=== PATIENT | female | born 1960 | race Caucasian/White ===

== ENCOUNTER 2020-11-10 19:36 | Emergency (ER) | payer OTHER, SELFPAY ==
--- NOTE | ~2020-11-10 | CT_ITS ---
EXAMINATION: CT ABDOMEN AND PELVIS WITHOUT CONTRAST CLINICAL INFORMATION: Flank pain, urinary retention COMPARISON: 11/22/2017 TECHNIQUE: Multidetector volumetric imaging was performed from the superior aspect of the liver through the pubic symphysis. Sagittal and coronal reformatted images were obtained on the technologist's workstation. This CT examination was performed using dose optimization techniques as appropriate, variously including the following: *Automated exposure control *Adjustment of mA and/or kV according to patient size (this includes techniques or standardized protocols for targeted exams where dose is matched to indication/reason for exam; i.e. extremities or head) *Use of iterative reconstruction technique DLP: 639 mGy-cm FINDINGS: Partially limited assessment due to motion artifact. LUNG BASES: The visualized lung bases are unremarkable. LIVER, GALLBLADDER, AND BILIARY TREE: The liver is normal in size, shape, and attenuation. No focal hepatic lesion or biliary ductal dilatation is present. Patient is status post cholecystectomy. PANCREAS: Unremarkable. SPLEEN: Unremarkable. ADRENAL GLANDS: Unremarkable. KIDNEYS AND URETERS: The kidneys are normal in size, shape, and attenuation. No hydronephrosis, hydroureter, or calculi seen. BLADDER: Decompressed with a Yen catheter. GASTROINTESTINAL TRACT: The small and large bowel are unremarkable. The appendix is unremarkable. No free fluid or free air is seen. ABDOMINAL WALL: No significant hernia is appreciated. LYMPH NODES: Normal. VASCULAR: There is mild scattered atherosclerotic calcification. PELVIC VISCERA: Unremarkable. OSSEOUS STRUCTURES: Chronic appearing posterior left rib fractures noted. Degenerative changes are noted in the spine. Chronic compression deformity of T11 is noted. CT/CT abdomen pelvis wo con IMPRESSION: Suboptimal assessment in some regions due to motion artifact. No acute findings identified. No hydronephrosis.
[2020-11-10 20:12] VITALS: BP 171/95; PULSE 97; RESP 18; TEMP 36.7; O2SAT 99; BMI 24.8
--- NOTE | 2020-11-10 20:21 | PC.NURSE ---
PT ABLE TO VOID SMALL AMOUNT WITHOUT DIFFICULTY FOR URINE SAMPLE
[2020-11-10 20:27] LABS: Appearance Urine CLEAR; Color Urine YELLOW; Glucose Urine UA NEG (NEG); Leukocyte Esterase Urine NEG (NEG); Nitrite Urine NEG (NEG); Urine Blood NEG (NEG); Urine Ketones NEG (NEG); Urine Protein NEG (NEG-TRACE)
[2020-11-10 21:36] LABS: MANUAL DIFF FLAG NO
[2020-11-10 21:38] LABS: Basophils Percent Auto 0.4 % (0-2); Eosinophils Absolute Auto 0.1 X10*3/uL (0.0-0.4); Eosinophils Percent Auto 0.7 % (0-4); Hematocrit 37.7 % (37-47); Hemoglobin 12.8 g/dl (12.0-16.0); Imm Gran Abs Auto 0.02 X10*3/uL (0.00-0.03); Imm Gran Pct Auto 0.2 % (0.0-0.4); Lymphocytes Absolute Auto 1.9 X10*3/uL (1.2-4.9); Lymphocytes Percent Auto 23.4 % (20-40); Mean Corpuscular Hemoglobin 31.8 pg (27.0-33.0); Mean Corpuscular Volume 93.8 fL (80-98); Mean Platelet Volume 10.6 fL (9.4-12.3); Monocytes Absolute Auto 0.4 X10*3/uL (0.1-1.2); Monocytes Percent Auto 4.9 % (2-11); Neutrophils Absolute Auto 5.7 X10*3/uL (2.0-8.3); Neutrophils Percent Auto 70.4 % (45-73); Platelet Count 192 X10*3/uL (160-400); Red Blood Count 4.02 X10*6/uL (4.20-5.50); White Blood Count 8.1 X10*3/uL (4.8-10.8)
[2020-11-10 22:09] LABS: Alanine Aminotransferase 9 U/L (0-31); Albumin Level 4.1 g/dL (3.5-5.0); Alkaline Phosphatase 69 U/L (39-117); Anion Gap 13 (12-20); Aspartate Amino Transferase 13 U/L (5-31); Bilirubin Total 0.3 mg/dL (0.0-1.0); Blood Urea Nitrogen 6 mg/dL (9-16); Carbon Dioxide 24 mmol/L (22-29); Chloride 112 mmol/L (96-108); Creatinine Clr Calc Pharmacy 58.9; Estimated Glomerular Filt Rate > 60; Glucose Random 92 mg/dL (60-115); Potassium 3.5 mmol/L (3.3-5.1); Sodium 145 mmol/L (135-145); Total Protein 6.9 g/dL (6.5-8.0)
--- NOTE | 2020-11-10 23:17 | ED.MALEGU ---
HPI - Male Genitourinary General Chief complaint: Abdominal Pain Stated complaint: back pain/abdominal pain Time Seen by Provider: 11/10/20 23:04 Source: patient Mode of arrival: ambulatory Limitations: language barrier Related Data Allergies Allergy/AdvReac Type Severity Reaction Status Date / Time Penicillins [PCN] Allergy Mild ITCHY Verified 11/11/20 00:31 penicillin V Allergy Unknown hives Verified 11/11/20 00:31 Sulfa (Sulfonamide Allergy Unknown swelling/ Verified 11/11/20 00:31 Antibiotics) hives sulfamethoxazole Allergy Unknown SOB, Verified 11/11/20 00:31 [From BACTRIM] diffuse rash trimethoprim [From BACTRIM] Allergy Unknown SOB, Verified 11/11/20 00:31 diffuse rash penicillin Allergy Unknown rash, itchy Uncoded 10/05/17 00:00 bactrim AdvReac Unknown asthma Uncoded 10/05/17 00:00 PMFSH Past Medical History Medical History Asthma Social History Social History Advance Directives: No Advance Directives Information Provided: No Physical Exam Vital Signs: Vital Signs: Last Vital Signs Temp 98.0 F 11/11/20 00:37 Pulse 68 11/11/20 00:37 Resp 16 11/11/20 00:37 BP 170/93 H 11/11/20 00:37 Pulse Ox 98 11/11/20 00:37 Body Mass Index 24.8 MDM - Male Genitourinary Lab Data Result diagrams: 11/10/20 21:19 11/10/20 21:19 Labs: Lab Results 11/10/20 11/10/20 11/10/20 Range/Units 20:20 21:19 21:19 WBC 8.1 (4.8-10.8) X10*3/uL RBC 4.02 L (4.20-5.50) X10*6/uL Hgb 12.8 (12.0-16.0) g/dl Hct 37.7 (37-47) % MCV 93.8 (80-98) fL MCH 31.8 (27.0-33.0) pg MCHC 34.0 (31.0-35.0) g/dl RDW 14.0 (11.0-16.0) % Plt Count 192 (160-400) X10*3/uL MPV 10.6 (9.4-12.3) fL Immature Gran % (Auto) 0.2 (0.0-0.4) % Neut % (Auto) 70.4 (45-73) % Lymph % (Auto) 23.4 (20-40) % [place] % (Auto) 4.9 (2-11) % Eos % (Auto) 0.7 (0-4) % Baso % (Auto) 0.4 (0-2) % Lymph # (Auto) 1.9 (1.2-4.9) X10*3/uL [place] # (Auto) 0.4 (0.1-1.2) X10*3/uL Eos # (Auto) 0.1 (0.0-0.4) X10*3/uL Baso # (Auto) 0.0 (0.0-0.2) X10*3/uL Abs Immat Gran (auto) 0.02 (0.00-0.03) X10*3/uL Absolute Neuts (auto) 5.7 (2.0-8.3) X10*3/uL Absolute Nucleated RBC 0.000 (0.0-0.012) X10*3/uL Nucleated RBC % (auto) 0.0 (0.0-0.2) /100WBC Sodium 145 (135-145) mmol/L Potassium 3.5 (3.3-5.1) mmol/L Chloride 112 H (96-108) mmol/L Carbon Dioxide 24 (22-29) mmol/L Anion Gap 13 (12-20) BUN 6 L (9-16) mg/dL Creatinine 0.95 (0.5-1.4) mg/dL Estim Creat Clear Calc 58.9 Estimated GFR > 60 Random Glucose 92 (60-115) mg/dL Calcium 9.0 (8.4-10.2) mg/dL Total Bilirubin 0.3 (0.0-1.0) mg/dL AST 13 (5-31) U/L ALT 9 (0-31) U/L Alkaline Phosphatase 69 (39-117) U/L Total Protein 6.9 (6.5-8.0) g/dL Albumin 4.1 (3.5-5.0) g/dL Urine Color YELLOW Urine Appearance CLEAR Urine pH 6.0 (5.0-8.0) Ur Specific [place] 1.010 (1.005-1.025) Urine Protein NEG (NEG-TRACE) MG/DL Urine Glucose (UA) NEG (NEG) MG/DL Urine Ketones NEG (NEG) MG/DL Urine Blood NEG (NEG) Urine Nitrite NEG (NEG) Ur Leukocyte Esterase NEG (NEG) Discharge Plan Discharge Clinical Impression: Acute retention of urine
[2020-11-11] MEDS: Ketorolac Tromethamine 60 MG/2 ML VIAL IM (00:32)
[2020-11-11 00:37] VITALS: BP 170/93; PULSE 68; RESP 16; TEMP 36.7; O2SAT 98
--- NOTE | 2020-11-11 01:35 | ED_ITS ---
HPI - Abdominal Pain General Chief Complaint: Abdominal Pain Stated Complaint: back pain/abdominal pain Time Seen by Provider: 11/10/20 23:04 Source: patient Mode of arrival: ambulatory Limitations: language barrier History of Present Illness HPI narrative: 60-year-old female with past medical history asthma and kidney stones presents with 2 days of inability to urinate and left flank pain. She feels that her bladder is been distended for the last 2 days and stated that the last time that this happened she need Yen. She is not reporting fevers, chills, nausea, vomiting, diarrhea, constipation, chest pain or pressure, palpitations, shortness of breath, shortness of breath on exertion, and edema. MD elicited complaint: flank pain Pertinent past history: kidney stones Onset (ago): day(s) (2) Pain Consistency: constant Location: L flank Severity: moderate Quality: stabbing and aching Migration to: no migration Exacerbating factors: movement Relieving factors: nothing Associated symptoms: dysuria Treatments prior to arrival: NSAIDs Related Data Allergies Allergy/AdvReac Type Severity Reaction Status Date / Time Penicillins [PCN] Allergy Mild ITCHY Verified 11/11/20 00:31 penicillin V Allergy Unknown hives Verified 11/11/20 00:31 Sulfa (Sulfonamide Allergy Unknown swelling/ Verified 11/11/20 00:31 Antibiotics) hives sulfamethoxazole Allergy Unknown SOB, Verified 11/11/20 00:31 [From BACTRIM] diffuse rash trimethoprim [From BACTRIM] Allergy Unknown SOB, Verified 11/11/20 00:31 diffuse rash penicillin Allergy Unknown rash, itchy Uncoded 10/05/17 00:00 bactrim AdvReac Unknown asthma Uncoded 10/05/17 00:00 Review of Systems Review of Systems Constitutional: No Fever, No Chills ENT/Mouth: No sore throat Eyes: No Eye Pain, No Swelling, No Redness Cardiovascular: No Chest Pain, No SOB Respiratory: No Cough, No Sputum, No Wheezing Gastrointestinal: positive Nausea, positive Vomiting, No Diarrhea, positive abdominal pain Genitourinary: positive Dysuria, positive urinary frequency, positive Hematuria, positive Flank Pain, positive hesitancy Musculoskeletal: No joint pain, No Myalgias Skin: No Skin Lesions, No rash Neuro: No Weakness, No Numbness, No Headache Psych: No Anxiety/Panic, No Depression Heme/Lymph: No Bruising, No Lymphadenopathy Endocrine: No Polyuria, No Polydipsia Yes all other systems are reviewed and are negative Physical Exam Vital Signs: Vital Signs: Last Vital Signs Temp 98.0 F 11/11/20 00:37 Pulse 68 11/11/20 00:37 Resp 16 11/11/20 00:37 BP 170/93 H 11/11/20 00:37 Pulse Ox 98 11/11/20 00:37 Body Mass Index 24.8 Appearance: Alert. Oriented X3. No acute distress. Eyes: Pupils equal, round and reactive to light. ENT: Pharynx normal. Neck: Normal inspection. Neck supple. CVS: Normal heart rate and rhythm. Pulses normal. Respiratory: No respiratory distress. Breath sounds normal. Abdomen: Soft and left-sided tenderness to palpation, CVA tenderness noted. To the left side, Skin: Skin warm and dry. Normal skin color. Normal skin turgor. Extremities: No lower extremity edema. Neuro: No motor deficit. No sensory deficit. Course Course Course Narrative: 60-year-old female presents with 2 days of inability to urinate and left flank pain. She states that she was able to urinate just a little bit for urinalysis. Yne cath placed as there was greater than 500 mL residual on bladder scan by this [employer]JUST[employer]. Will order CT scan of abdomen and pelvis as she does have significant flank pain. Labs are unremarkable. Urinalysis is negative MDM - Abdominal Pain Differential Diagnosis Differential diagnosis: Likely abdominal pain, calculus of kidney and renal colic Medical Records Attestation: I reviewed the patient's medical records. Lab Data Attestation: I reviewed the patient's lab results. Result diagrams: 11/10/20 21:19 11/10/20 21:19 Labs: Lab Results 11/10/20 11/10/20 11/10/20 Range/Units 20:20 21:19 21:19 WBC 8.1 (4.8-10.8) X10*3/uL RBC 4.02 L (4.20-5.50) X10*6/uL Hgb 12.8 (12.0-16.0) g/dl Hct 37.7 (37-47) % MCV 93.8 (80-98) fL MCH 31.8 (27.0-33.0) pg MCHC 34.0 (31.0-35.0) g/dl RDW 14.0 (11.0-16.0) % Plt Count 192 (160-400) X10*3/uL MPV 10.6 (9.4-12.3) fL Immature Gran % (Auto) 0.2 (0.0-0.4) % Neut % (Auto) 70.4 (45-73) % Lymph % (Auto) 23.4 (20-40) % [place] % (Auto) 4.9 (2-11) % Eos % (Auto) 0.7 (0-4) % Baso % (Auto) 0.4 (0-2) % Lymph # (Auto) 1.9 (1.2-4.9) X10*3/uL [place] # (Auto) 0.4 (0.1-1.2) X10*3/uL Eos # (Auto) 0.1 (0.0-0.4) X10*3/uL Baso # (Auto) 0.0 (0.0-0.2) X10*3/uL Abs Immat Gran (auto) 0.02 (0.00-0.03) X10*3/uL Absolute Neuts (auto) 5.7 (2.0-8.3) X10*3/uL Absolute Nucleated RBC 0.000 (0.0-0.012) X10*3/uL Nucleated RBC % (auto) 0.0 (0.0-0.2) /100WBC Sodium 145 (135-145) mmol/L Potassium 3.5 (3.3-5.1) mmol/L Chloride 112 H (96-108) mmol/L Carbon Dioxide 24 (22-29) mmol/L Anion Gap 13 (12-20) BUN 6 L (9-16) mg/dL Creatinine 0.95 (0.5-1.4) mg/dL Estim Creat Clear Calc 58.9 Estimated GFR > 60 Random Glucose 92 (60-115) mg/dL Calcium 9.0 (8.4-10.2) mg/dL Total Bilirubin 0.3 (0.0-1.0) mg/dL AST 13 (5-31) U/L ALT 9 (0-31) U/L Alkaline Phosphatase 69 (39-117) U/L Total Protein 6.9 (6.5-8.0) g/dL Albumin 4.1 (3.5-5.0) g/dL Urine Color YELLOW Urine Appearance CLEAR Urine pH 6.0 (5.0-8.0) Ur Specific [place] 1.010 (1.005-1.025) Urine Protein NEG (NEG-TRACE) MG/DL Urine Glucose (UA) NEG (NEG) MG/DL Urine Ketones NEG (NEG) MG/DL Urine Blood NEG (NEG) Urine Nitrite NEG (NEG) Ur Leukocyte Esterase NEG (NEG) Imaging Data CT scan - abdomen: Attestation: I personally reviewed and interpreted this imaging study as follows: Radiologist's impression: FINDINGS: Partially limited assessment due to motion artifact. LUNG BASES: The visualized lung bases are unremarkable. LIVER, GALLBLADDER, AND BILIARY TREE: The liver is normal in size, shape, and attenuation. No focal hepatic lesion or biliary ductal dilatation is present. Patient is status post cholecystectomy. PANCREAS: Unremarkable. SPLEEN: Unremarkable. ADRENAL GLANDS: Unremarkable. KIDNEYS AND URETERS: The kidneys are normal in size, shape, and attenuation. No hydronephrosis, hydroureter, or calculi seen. BLADDER: Decompressed with a Yen catheter. GASTROINTESTINAL TRACT: The small and large bowel are unremarkable. The appendix is unremarkable. No free fluid or free air is seen. ABDOMINAL WALL: No significant hernia is appreciated. LYMPH NODES: Normal. VASCULAR: There is mild scattered atherosclerotic calcification. PELVIC VISCERA: Unremarkable. OSSEOUS STRUCTURES: Chronic appearing posterior left rib fractures noted. Degenerative changes are noted in the spine. Chronic compression deformity of T11 is noted. CT/CT abdomen pelvis wo con IMPRESSION: Suboptimal assessment in some regions due to motion artifact. No acute findings identified. No hydronephrosis. Discharge Plan Discharge Clinical Impression: Acute retention of urine, Acute left flank pain Patient Disposition: Home, Self-Care Instructions: Acute Urinary Retention in Women (ED), Flank Pain (ED) Additional Instructions: Fue evaluado por retenci?n urinaria y dolor en el costado. La tomograf?a computarizada del abdomen y la pelvis es negativa para hallazgos agudos. No encontramos c?lculos renales ni infecciones renales. Tu an?lisis de lisbeth es negativo. Chan an?lisis de orina es negativo. [place] un seguimiento con chan m?dico de atenci?n Ur?logo retenci?n urinaria. [place] por elegir radha departamento de emergencias para chan evaluaci?n. [place] un seguimiento con chan m?dico de atenci?n primaria seg?n sea necesario. Regrese al departamento de emergencias por cualquier s?ntoma nuevo, preocupante o que empeore. You were evaluated for urinary retention and flank pain. CT scan of the abdomen and pelvis is negative for acute findings. We did not find any kidney stones or any kidney infections. Your blood work is negative. Her urinalysis is negative. Please follow-up with Urology for urinary retention. Thank you for choosing this emergency department for evaluation. Please follow-up with primary care physician as needed. Return to the emergency department for any new, concerning, or worsening symptoms. Referrals: Nikhil Duvall MD [Physician] - 2 days (Urinary retention) [facility] Past Medical History Attestation statement: The following information was validated with the patient. Source: old records reviewed Medical History Asthma Social History Social History Advance Directives: No Advance Directives Information Provided: No
== END 2020-11-11 02:50 | disposition home or self-care (01) ==
PROVIDERS: Emergency Provider Internal Medicine; PCP Internal Medicine
DX: R10.9 Unspecified abdominal pain (principal); R33.9 Retention of urine, unspecified; Z87.442 Personal history of urinary calculi
CPT/HCPCS: 36415; 74176; 80053; 81003; 85025; 96372; 99284; J1885

== ENCOUNTER 2022-12-16 13:32 | Emergency (ER) | payer OTHER, SELFPAY ==
--- NOTE | ~2022-12-16 | XR_ITS ---
EXAMINATION: XR KNEE, RIGHT CLINICAL INFORMATION: Pain. COMPARISON: None available. TECHNIQUE: Four views of the right knee. FINDINGS: No acute abnormality. No fracture or dislocation. No focal bone lesion. No abnormal periosteal reaction. Moderate joint narrowing of the medial femoral tibial joint. No chondrocalcinosis. Small suprapatellar joint effusion. Enthesopathy at the quadriceps tendon insertion of the superior pole of the patella. XR/XR knee RT 4V IMPRESSION: 1. No acute abnormality. 2. Moderate degenerative joint narrowing of the medial femoral tibial joint.
[2022-12-16 13:37] VITALS: BP 186/89; PULSE 69; RESP 18; TEMP 36.4; O2SAT 99; BMI 26.6
--- NOTE | 2022-12-16 13:37 | ED_ITS ---
HPI - Extremity Problem General Chief complaint: Extremity Injury, Lower Stated complaint: R Leg Pain No Injury Time Seen by Provider: 12/16/22 15:35 Source: patient Mode of arrival: ambulatory Limitations: no limitations History of Present Illness HPI Narrative: Patient is a 62 year old assigned female at with a history of asthma presenting to the emergency department today with right knee pain. Patient stat es that over the last 3 weeks she has had worsening right knee pain. Patient denies any dizziness, lightheadedness, abdominal pain, nausea, vomiting, fever, chills, blurry vision, double vision, loss of vision, chest pain, difficulty breathing, shortness of breath, back pain, night sweats, pain with urination, increased urinary frequency, increased urinary urgency, blood in his urine or stool, syncope or a near syncopal episode, recent trauma or falls, bowel incontinence, bladder incontinence, bowel retention, bladder retention, or any other complaints at this time. MD Complaint: extremity pain Onset (ago): week(s) (3) Pain Consistency: constant Location: right Severity scale (1-10): 3 Quality: dull Radiation: none Relieving factors: nothing Exacerbating factors: nothing Related Data Previous Rx's Medication Instructions Recorded cyclobenzaprine 5 mg tablet 5 mg PO TID PRN muscle spasm 7 12/16/22 days #21 tabs prednisone 20 mg tablet 20 mg PO DAILY 7 days #7 tabs 12/16/22 Allergies Allergy/AdvReac Type Severity Reaction Status Date / Time Penicillins [PCN] Allergy Mild ITCHY Verified 12/16/22 13:37 penicillin V Allergy Unknown hives Verified 12/16/22 13:37 Sulfa (Sulfonamide Allergy Unknown swelling/ Verified 12/16/22 13:37 Antibiotics) hives sulfamethoxazole Allergy Unknown SOB, Verified 12/16/22 13:37 [From BACTRIM] diffuse rash trimethoprim [From BACTRIM] Allergy Unknown SOB, Verified 12/16/22 13:37 diffuse rash penicillin Allergy Unknown rash, itchy Uncoded 10/05/17 00:00 bactrim AdvReac Unknown asthma Uncoded 10/05/17 00:00 Review of Systems Constitutional: Constitutional: Reports no additional constitutional complaints, Denies chills, Denies fever(s) and Denies night sweats Eyes: Eyes: Reports no additional eye complaints, Denies blurry vision, Denies change in vision, Denies diplopia, Denies eye discharge, Denies loss of vision and Denies eye pain ENT: Denies dizziness Cardiovascular: Cardiovascular: Reports no additional cardiovascular complaints, Denies chest pain, Denies lightheadedness, Denies Loss of Consciousness and Denies dyspnea Respiratory: Respiratory: Reports no additional respiratory complaints and Denies dyspnea Gastrointestinal: Gastrointestinal: Reports no additional gastrointestinal complaints, Denies abdominal pain, Denies melena, Denies hematochezia, Denies change in bowel habits and Denies change in stool character Genitourinary: Genitourinary: Denies hematuria, Denies urinary frequency, Denies dysuria, Denies urinary incontinence, Denies urinary hesitancy and Denies urinary urgency Musculoskeletal: Musculoskeletal: Reports no additional musculoskeletal complaints, Denies numbness and Denies tingling Comments: right knee pain Neurologic: Denies dizziness, Denies loss of vision, Denies numbness and Denies tingling Psychiatric: Psychiatric: Reports no additional psychiatric complaints Endocrine: Endocrine: Reports no additional endocrine complaints Hematologic/Lymphatic: Hematologic/Lymphatic: Reports no additional hematologic/lymphatic complaints Allergic/Immunologic: Allergic/Immunologic: Reports no additional allergic/immunologic complaints PMFSH Past Medical History Attestation statement: The following information was validated with the patient. Source: old records reviewed and nursing notes reviewed Medical History Asthma Social History Social History Advance Directives: No Advance Directives Information Provided: Yes Physical Exam Vital Signs: Vital Signs: Last Vital Signs Temp 97.5 F 12/16/22 13:37 Pulse 69 12/16/22 13:37 Resp 18 12/16/22 13:37 BP 186/89 H 12/16/22 13:37 Pulse Ox 99 12/16/22 13:37 O2 Del Method Room Air 12/16/22 13:37 BMI result Body Mass Index 26.6 Const: General: cooperative, no acute distress, alert and awake Nutritional Appearance: well nourished Orientation/consciousness: patient oriented x3 Limitations: no limitations HEENT: Head: Yes normal to inspection and Yes atraumatic Ears: hearing grossly normal bilaterally and external ears normal General nose exam: Normal external nose present, no nasal discharge noted and no epistaxis Face and sinus: Yes normal facial exam, No abrasion and No laceration Mouth: Normal oral and palatal mucosa present, no drooling and no muffled voice Eyes: General: appearance normal, both eyes and all related structures Periorbital: periorbital findings normal Eyelids: Yes eyelids normal Conjunctivae: conjunctivae normal Pupils: Equal, round and reactive pupils present EOM: EOMs intact bilaterally Neck: Neck: Yes normal visual inspection, Yes full ROM and Yes no lymphadenopathy Chest: Chest palpation & inspection: normal inspection of the chest Resp: Effort & Inspection: normal respiratory effort and able to speak in complete sentences GI: Inspection: Yes normal to inspection Neuro: General: patient oriented x3 and moves all extremities Cranial nerves: Yes Equal, round and reactive pupils present Cognition (Neuro): normal cognition Motor exam (neuro): 5/5 motor strength present throughout Sensory Exam: Normal double simultaneous stimulation for sensation Coordination: [id number] test normal Extrem: General: Yes normal to inspection, Yes full ROM and Yes capillary refill normal Psych: Appearance: grossly normal Mental Status: mental status grossly normal Affect: normal affect Attitude: cooperative Thought process: Normal thought process present Thought content: Normal thought content present Insight: Good insight present (Psych) Course Course Course Narrative: RME - 62 yo female presenting with nontraumatic right knee pain for the last 3 weeks. Plan: x-ray, joint eval in [facility] Medications Administered Discontinued Medications Generic Name Dose Route Start Last Admin Trade Name Freq PRN Reason Stop Dose Admin Cyclobenzaprine HCl 5 mg 12/16/22 16:12 12/16/22 16:27 Cyclobenzaprine Hcl 5 Mg Tablet PO 12/16/22 16:13 5 mg ONCE ONE Administration Ketorolac Tromethamine 15 mg 12/16/22 16:12 12/16/22 16:28 Ketorolac Tromethamine 15 Mg/Ml Vial IM 12/16/22 16:13 15 mg ONCE ONE Administration Prednisone 20 mg 12/16/22 16:12 12/16/22 16:27 Prednisone 20 Mg Tablet PO 12/16/22 16:13 20 mg ONCE ONE Administration Medical Decision Making Medical Decision Making [facility] Narrative: Patient is a 62 year old assigned female at with a history of asthma presenting to the emergency department today with right knee pain. Patient's physical exam was unremarkable. Patient's right knee x-ray showed no acute process. I explained my physical exam findings as well as all test results to the patient. I answered all questions asked by the patient. Patient received IM Toradol, PO Prednisone, and PO flexeril which she stated helped her symptoms significantly. I stressed the importance of the patient taking her medication as prescribed. I stressed the importance of the patient following up with her primary care provider and an orthopedic provider. I stressed the importance of the patient returning to the emergency department immediately if her symptoms were to worsen or if she were to develop any dizziness, shortness of breath, difficulty breathing, chest pain, blurry vision, loss of vision, nausea, vomiting, abdominal pain, fever, chills, back pain, or any other complaints. Patient verbalized agreement and understanding with this treatment plan and discharge. Differential Diagnosis Differential Diagnoses: The differential diagnosis associated with the presentation includes Right knee pain Osteoarthritis Fracture Knee sprain Knee strain Independent Interpretation I performed an independent interpretation of an: Plain X-Ray Interpretation: My interpretation is in agreement with the radiologist's impression of this imaging study. EXAMINATION: XR KNEE, RIGHT? CLINICAL INFORMATION: Pain.? COMPARISON: None available.? TECHNIQUE: Four views of the right knee. FINDINGS: No acute abnormality. No fracture or dislocation. No focal bone lesion. No abnormal periosteal reaction. Moderate joint narrowing of the medial femoral tibial joint. No chondrocalcinosis. Small suprapatellar joint effusion. Enthesopathy at the quadriceps tendon insertion of the superior pole of the patella.? XR/XR knee RT 4V IMPRESSION: 1.? No acute abnormality. 2.? Moderate degenerative joint narrowing of the medial femoral tibial joint. ? Dictated By: Bull Nascimento MD Signed By: Electronically signed by Bull Nascimento MD 12/16/22 7271 Radiology Impression Discussion of test interpretation with radiology: I have reviewed the radiologist's reading. Prescription Management I considered prescription management with: Pain Medication (patient prescribed flexeril and prednisone) Chronic Conditions Patient?s care impacted by: Other (asthma) Discharge Plan Discharge Clinical Impression: Acute knee pain, Osteoarthritis Patient Disposition: Home, Self-Care Instructions: Osteoarthritis (DC), Knee Pain (ED) Additional Instructions: Follow up with your primary care provider and an orthopedic provider. Return to the emergency department immediately if your symptoms worsen or if you develop any dizziness, shortness of breath, difficulty breathing, chest pain, blurry vision, loss of vision, nausea, vomiting, abdominal pain, fever, chills, back pain, or any other complaints. Prescriptions: New prednisone 20 mg tablet 20 mg PO DAILY 7 Days Qty: 7 0RF cyclobenzaprine 5 mg tablet 5 mg PO TID PRN (Reason: muscle spasm) 7 Days Qty: 21 0RF Referrals: [facility] [Provider Group] (Call to establish and follow up with an orthopedic provider. ) Kari Huffman MD [Primary Care Provider] - Interventions: ED Discharge Assessment Last Done: 12/16/22 16:34 Discharge Date/Time: 12/16/22 16:34 Print Language: Citizen Of [place]
[2022-12-16] MEDS: Cyclobenzaprine HCl 5 MG TABLET PO (16:27)
[2022-12-16] MEDS: predniSONE 20 MG TABLET PO (16:27)
[2022-12-16] MEDS: Ketorolac Tromethamine 15 MG/ML VIAL IM (16:28)
== END 2022-12-16 16:34 | disposition home or self-care (01) ==
PROVIDERS: Emergency Provider Emergency Medicine; PCP Internal Medicine
DX: M17.11 Unilateral primary osteoarthritis, right knee (principal); M25.561 Pain in right knee
CPT/HCPCS: 73564; 96372; 99283; 99284; J1885

== ENCOUNTER 2023-03-03 15:03 | Outpatient (AMB) | payer OTHER, SELFPAY ==
--- NOTE | 2023-03-03 15:05 | MHC.OFFVIS ---
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 The patient describes her pain as sharp in nature. Her pain has gotten worse over the last year in spite of continued non operative treatments. She has had cortisone injections in the past which gave her minimal relief. She has not had a viscosupplementation injection. She has tried Tylenol and anti-inflammatory medicines which gave her minimal relief. She has also done physical therapy which aggravated her pain. She would like to hold off on surgery for as long as possible. Allergies Penicillins [PCN] Allergy (Mild, Verified 03/03/23 15:09) ITCHY penicillin V Allergy (Unknown, Verified 03/03/23 15:09) hives Sulfa (Sulfonamide Antibiotics) Allergy (Unknown, Verified 03/03/23 15:09) swelling/ hives sulfamethoxazole [From BACTRIM] Allergy (Unknown, Verified 03/03/23 15:09) SOB, diffuse rash trimethoprim [From BACTRIM] Allergy (Unknown, Verified 03/03/23 15:09) SOB, diffuse rash penicillin Allergy (Unknown, Uncoded 10/05/17 00:00) rash, itchy bactrim Adverse Reaction (Unknown, Uncoded 10/05/17 00:00) asthma Medication List - Last Reconciled 03/03/23 by Carl Lugo MD cyclobenzaprine 5 mg PO TID PRN 7 days naproxen 500 mg PO BID prednisone 20 mg PO DAILY 7 days [facility] Medical History Asthma Physical Exam Vital Signs: BMI result Body Mass Index 26.6 Const Other: Well-nourished well-developed very friendly female awake alert and oriented x3 in no acute distress Extrem Other: Bilateral lower extremity examination shows good capillary refill, no skin lesions noted, normal sensation light touch Right knee examination shows a minimal effusion, palpable crepitus with range of motion, range of motion from -3 degrees to 115 degrees, pain with range of motion, no instability Results Reviewed Results Reviewed: X-rays of the patient's right knee show joint space narrowing most significant in the patellofemoral joint, no acute bony abnormalities Assessment & Plan Assessment & Plan (1) Arthritis of right knee: Code(s): M17.11 - Unilateral primary osteoarthritis, right knee Plan Ms. Isidro presents with right knee pain due to degenerative joint disease. I had a lengthy discussion with the patient regarding the treatment options. She wishes to hold off on surgery for as long as possible. I did give her a prescription for tramadol to help with her pain. She has had cortisone injections in the past which gave her minimal relief. I will see whether not her insurance company will cover a viscosupplementation injection. I will see her back once the injection is available. Feel free to call me at any time should questions regarding her orthopedic management arise. Thank you very much for asking me to see this very friendly patient. I spent 22 minutes in reviewing the patient's records and imaging studies, seeing the patient and documenting in the medical record. Medications: New tramadol 50 mg PO Q12H PRN 30 tabs 0RF pain Coding Level of Care Code New Pt Level 2 (86962) Diagnoses Arthritis of right knee M17.11
[2023-03-03 15:11] VITALS: BMI 26.6
== END 2023-03-03 15:23 | disposition home or self-care (01) ==
PROVIDERS: PCP Internal Medicine; Visit Provider Orthopaedic Surgery
DX: M17.11 Unilateral primary osteoarthritis, right knee (principal)
CPT/HCPCS: 99202

== ENCOUNTER → 2023-03-03 15:03 | Outpatient (BNVA) | payer OTHER, SELFPAY | PROVIDERS: PCP Internal Medicine; Visit Provider Orthopaedic Surgery | DX: M17.11 Unilateral primary osteoarthritis, right knee (principal) | CPT/HCPCS: 99202 ==

== ENCOUNTER 2023-03-04 14:19 | Outpatient (REF) | payer OTHER, SELFPAY ==
[2023-03-06 20:58] LABS: TS Negative Control Passed; TS Panel A 8; TS Panel B 7; TS Positive Control Passed; TSpotTB Positive (Negative)
== END 2023-03-04 14:20 | disposition home or self-care (01) ==
LOC: HO.LAB 14:19
PROVIDERS: PCP Internal Medicine; Visit Provider Internal Medicine
DX: E78.00 Pure hypercholesterolemia, unspecified (principal); F32.5 Major depressive disorder, single episode, in full remission; I10 Essential (primary) hypertension; K21.9 Gastro-esophageal reflux disease without esophagitis; Z11.1 Encounter for screening for respiratory tuberculosis; Z72.0 Tobacco use
CPT/HCPCS: 36415; 86481

== ENCOUNTER 2023-06-13 19:15 | Emergency (ER) | payer OTHER, SELFPAY ==
--- NOTE | ~2023-06-13 | XR_ITS ---
EXAMINATION: XR CHEST, 2 VIEWS CLINICAL INFORMATION: Cough. Left lower lung elliott. COMPARISON: 06/04/2019 TECHNIQUE: PA and lateral views of the chest were obtained. FINDINGS: There is focal airspace opacification in the lateral aspect of the left midlung, likely within the lingula, favored to correspond to pneumonia. Lungs are otherwise clear. No pneumothorax or pleural effusion. Cardiac and mediastinal contours are normal. The pulmonary vasculature is unremarkable. Mild hyperkyphosis. Bones are osteopenic. Mild multilevel degenerative disc disease. Chronic superior endplate compression deformity within a lower thoracic vertebra, unchanged. XR/XR chest 2V IMPRESSION: Focal airspace opacification in the lateral aspect of the left midlung, likely within the lingula, favored to correspond to pneumonia. Follow-up radiograph advised in 6-10 weeks to verify resolution.
[2023-06-13 19:29] VITALS: BP 114/65; PULSE 83; RESP 16; TEMP 36.5; O2SAT 99; BMI 24.3
[2023-06-13 20:07] LABS: COVID-19 Test Negative (Negative); IDNOW Serial# 08D9AD1C
[2023-06-13 20:10] LABS: IDNOW Serial# 152EDE1D; Influenza A Negative (Negative); Influenza B2 Negative (Negative)
[2023-06-13 20:59] LABS: Appearance Urine Clear; Color Urine Dark Yellow; Glucose Urine UA Negative (Negative); Leukocyte Esterase Urine Negative (Negative); Nitrite Urine Negative (Negative); Specific Gravity - Urine 1.025 (1.005-1.025); UMIC TRIGGER UACC YES; Urine Blood Negative (Negative); Urine Ketones Trace mg/dL (Negative); Urine Protein 100 (2+) mg/dL (Neg-Trace)
[2023-06-13 21:11] LABS: Bacteria Urine 1+ (None Seen); WBC Urine 0-5 /HPF (0-5)
[2023-06-14 00:30] VITALS: BP 132/71; PULSE 81; RESP 16; O2SAT 97
--- NOTE | 2023-06-14 00:45 | ED_ITS ---
HPI - General Adult General Chief complaint: Upper Respiratory Symptoms Stated complaint: fatigue Time Seen by Provider: 06/13/23 23:55 Source: patient, RN notes reviewed, old records reviewed and medical interpreter Mode of arrival: ambulatory Limitations: language barrier History of Present Illness HPI narrative: 63-year-old female presents for evaluation of ?fatigue. ? She reports cough, sore throat, headache. She reports general body aches She reports multiple positive sick contacts in the last few weeks. Also reports increased urination and dysuria for the last 3 days Denies any fevers Related Data Home Medications Medication Instructions Recorded Confirmed naproxen 500 mg tablet 500 mg PO BID 03/03/23 03/03/23 Previous Rx's Medication Instructions Recorded cyclobenzaprine 5 mg tablet 5 mg PO TID PRN muscle spasm 7 12/16/22 days #21 tabs prednisone 20 mg tablet 20 mg PO DAILY 7 days #7 tabs 12/16/22 tramadol 50 mg tablet 50 mg PO Q12H PRN pain #30 tabs 03/03/23 albuterol sulfate 90 mcg/actuation 2 inh inhalation Q4-6H PRN 06/14/23 breath activated powder inhaler shortness of breath or wheezing #1 ea azithromycin 250 mg tablet 250 mg PO DAILY 4 days #4 tabs 06/14/23 cefuroxime axetil 500 mg tablet 500 mg PO BID #14 tabs 06/14/23 Allergies Allergy/AdvReac Type Severity Reaction Status Date / Time Penicillins [PCN] Allergy Mild ITCHY Verified 06/13/23 21:34 penicillin V Allergy Unknown hives Verified 06/13/23 21:34 Sulfa (Sulfonamide Allergy Unknown swelling/ Verified 06/13/23 21:34 Antibiotics) hives sulfamethoxazole Allergy Unknown SOB, Verified 06/13/23 21:34 [From BACTRIM] diffuse rash trimethoprim [From BACTRIM] Allergy Unknown SOB, Verified 06/13/23 21:34 diffuse rash penicillin Allergy Unknown rash, itchy Uncoded 06/13/23 21:34 bactrim AdvReac Unknown asthma Uncoded 06/13/23 21:34 Review of Systems Constitutional: Constitutional: Denies chills, Denies fever(s), Reports headache(s), Reports malaise and Reports weakness Eyes: Eyes: Denies blurry vision ENT: Reports headache(s) and Reports sore throat Cardiovascular: Cardiovascular: Denies chest pain Respiratory: Respiratory: Reports cough and Reports pain with cough Gastrointestinal: Gastrointestinal: Denies abdominal pain, Denies nausea and Denies vomiting Musculoskeletal: Musculoskeletal: Denies back pain Integumentary/Breasts: Skin/Breast: Denies rash Neurologic: Reports headache(s) and Reports weakness PMFSH Past Medical History Onset Date is defined in the Problem List Problems that require an onset date and time if occurred within 24 hrs of arrival to the ED Aortic Dissection and Rupture; Neurologic impairment; Cardiopulmonary Arrest; Endotracheal Intubation; Insertion or Replacement of Mechanical Circulatory Assist Device Medical History Asthma Social History Social History (System 04/07/23 @ 13:00 by Rayna Maki) Advance Directives: No Advance Directives Information Provided: No Physical Exam ED Vital Signs: Vital Signs - 24 hr 06/13/23 19:29 Temperature 97.7 F Pulse Rate 83 Respiratory Rate 16 Blood Pressure 114/65 Pulse Oximetry 99 Oxygen Delivery Method Room Air BMI result Body Mass Index 24.3 Const General: healthy appearing, comfortable, no acute distress, alert and awake Nutritional Appearance: well nourished Orientation/consciousness: patient oriented x3 HENMT Head: Yes normocephalic and Yes atraumatic Throat: Yes posterior oropharynx normal Eyes Eyelids: Yes eyelids normal Conjunctivae: conjunctivae normal Sclerae: sclerae normal Corneas: corneas normal Pupils: Equal, round and reactive pupils present EOM: EOMs intact bilaterally Neck Neck: Yes full ROM Resp Effort & Inspection: normal respiratory effort, able to speak in complete sentences, no audible wheezes and not labored Auscultation: clear to auscultation bilaterally Cardio Rate: regular rate Rhythm: regular rhythm GI Inspection: No distended Palpation (GI): Soft to palpation, not firm, nontender, no guarding and not rigid Skin General skin exam: elasticity normal Neuro General: patient oriented x3 Cranial nerves: Yes Equal, round and reactive pupils present and Yes Bilaterally intact EOM present Cognition (Neuro): normal cognition Extrem Other: Moving all extremities well without any obvious deformities Course Reevaluation(s) Reevaluation #1: Patient has left-sided pneumonia on x-ray which corresponds to the area of her describes pain with coughing. Vital signs are stable. She is still for discharge with outpatient antibiotics. Time: 01:54 Medications Administered Discontinued Medications Generic Name Dose Route Start Last Admin Trade Name Mohamud PRN Reason Stop Dose Admin Ibuprofen 600 mg 06/14/23 00:39 06/14/23 00:48 Ibuprofen 600 Mg Tablet PO 06/14/23 00:40 600 mg ONCE ONE Administration Medical Decision Making Medical Decision Making MDM Narrative: 63-year-old female is quite well appearing with stable vital signs. She is negative for influenza, COVID. Her physical exam is reassuring. Her UA is positive for UTI and she is complaining of symptoms. Given the pain with coughing and symptoms for 3 weeks will get a chest x-ray. Differential Diagnosis Differential Diagnoses: The differential diagnosis associated with the presentation includes Bronchitis Pneumonia Viral syndrome COVID-19 Influenza UTI Lab Data Labs: Lab Results 06/13/23 06/13/23 Range/Units 19:46 20:39 Urine Color Dark Yellow Urine Appearance Clear Urine pH 6.0 (5.0-9.0) Ur Specific [place] 1.025 (1.005-1.025) Urine Protein 100 (2+) H (Neg-Trace) mg/dL Urine Glucose (UA) Negative (Negative) mg/dL Urine Ketones Trace (Negative) mg/dL Urine Blood Negative (Negative) Urine Nitrite Negative (Negative) Ur Leukocyte Esterase Negative (Negative) Urine RBC 6-10 H (0-2) /HPF Urine WBC 0-5 (0-5) /HPF Ur Squamous Epith Cells 11-20 (0-2) /HPF Urine Bacteria 1+ (None Seen) Hyaline Casts 11-20 (0-2) /LPF COVID-19 (EVER) Negative (Negative) COVID-19 Clin Com See Note Influenza Type A (JOHNY) Negative (Negative) Influenza Type B (JOHNY) Negative (Negative) Influenza A & B Note See Note Independent Interpretation I performed an independent interpretation of an: Plain X-Ray (Left-sided infiltrate) Radiology Impression Discussion of test interpretation with radiology: I have reviewed the radiologist's reading. (Left-sided consolidation suspicious for pneumonia) Discharge Plan Discharge Clinical Impression: Community acquired pneumonia Patient Disposition: Home, Self-Care Instructions: Community Acquired Pneumonia (ED) Additional Instructions: Take azithromycin daily for 4 more days starting tomorrow as your 1st dose was given today. Take cefuroxime twice daily for a total of 7 days Use the albuterol inhaler as needed Hydrate well Follow-up with your primary doctor Prescriptions: New cefuroxime axetil 500 mg tablet 500 mg PO BID Qty: 14 0RF azithromycin 250 mg tablet 250 mg PO DAILY 4 Days Qty: 4 0RF Rx Instructions: start on day 2 of therapy albuterol sulfate 90 mcg/actuation aerosol powdr breath activated 2 inh inhalation Q4-6H PRN (Reason: shortness of breath or wheezing) Qty: 1 0RF No Action prednisone 20 mg tablet 20 mg PO DAILY 7 Days Qty: 7 0RF cyclobenzaprine 5 mg tablet 5 mg PO TID PRN (Reason: muscle spasm) 7 Days Qty: 21 0RF naproxen 500 mg tablet 500 mg PO BID tramadol 50 mg tablet 50 mg PO Q12H PRN (Reason: pain) Qty: 30 0RF
[2023-06-14] MEDS: Ibuprofen 600 MG TABLET PO (00:48)
[2023-06-14] MEDS: Azithromycin 500 MG TABLET PO (02:12)
[2023-06-14] MEDS: cefuroxime axetiL 500 MG TABLET PO (02:12)
[2023-06-14] MEDS: Acetaminophen 325 MG TABLET 650 MG PO (02:12)
[2023-06-14 02:19] VITALS: O2SAT 97
== END 2023-06-14 02:27 | disposition home or self-care (01) ==
PROVIDERS: Emergency Provider Internal Medicine; PCP Internal Medicine
DX: J18.9 Pneumonia, unspecified organism (principal); J02.9 Acute pharyngitis, unspecified; R51.9 Headache, unspecified; M79.10 Myalgia, unspecified site; R05.9 Cough, unspecified; R35.0 Frequency of micturition; R30.0 Dysuria; Z79.899 Other long term (current) drug therapy; Z11.52 Encounter for screening for COVID-19
CPT/HCPCS: 71046; 81001; 87502; 87635; 99283; 99285

== ENCOUNTER 2023-08-12 11:43 | Outpatient (AMB) | payer OTHER, SELFPAY ==
[2023-08-12 11:44] VITALS: BMI 24.2
--- NOTE | 2023-08-12 11:44 | A.OFFVIS_ITS ---
Intake Vital Signs 08/12/23 11:44 Height 5 ft 6 in Weight 150 lb BMI 24.2 Intake Visit Reasons: Inj - Right Knee Cortisone Injection Intake Note: Daphne is a 63 year old female who presents with Right knee pain. Patient reports she is still having Right knee pain and would like to have a cortisone injection. She states she was going to have the Euflexxa gel injections but she will be away in [place] and can't do the all three. She has done physical therapy exercises which aggravated her pain. She has also tried Tylenol, anti-inflammatory medicines and tramadol which gave her mild relief. Allergies Penicillins [PCN] Allergy (Mild, Verified 08/12/23 11:49) ITCHY penicillin V Allergy (Unknown, Verified 08/12/23 11:49) hives Sulfa (Sulfonamide Antibiotics) Allergy (Unknown, Verified 08/12/23 11:49) swelling/ hives sulfamethoxazole [From BACTRIM] Allergy (Unknown, Verified 08/12/23 11:49) SOB, diffuse rash trimethoprim [From BACTRIM] Allergy (Unknown, Verified 08/12/23 11:49) SOB, diffuse rash penicillin Allergy (Unknown, Uncoded 06/13/23 21:34) rash, itchy bactrim Adverse Reaction (Unknown, Uncoded 06/13/23 21:34) asthma Medication List - Last Reconciled 08/12/23 by Carl Lugo MD albuterol sulfate 90 mcg/actuation 2 inhalations inhalation Q4-6H PRN azithromycin 250 mg PO DAILY 4 days cefuroxime axetil 500 mg PO BID cyclobenzaprine 5 mg PO TID PRN 7 days naproxen 500 mg PO BID prednisone 20 mg PO DAILY 7 days tramadol 50 mg PO Q12H PRN 15 days PFSH Medical History Asthma Social History (Updated 08/12/23 @ 11:49 by Kaya Verdin CMA) Patient Tobacco Use Status: Current everyday Tobacco user Current occupational status: unemployed Current occupation: Right 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 Physical Exam Vital Signs: BMI result Body Mass Index 24.2 Const Other: Well-nourished well-developed very friendly female awake alert and oriented x3 in no acute distress Extrem Other: Bilateral lower extremity examination shows good capillary refill, no skin lesions noted, normal sensation light touch Right knee examination shows a moderate effusion, palpable crepitus with range of motion, pain with range of motion, no instability Office Procedures Joint Injection/Drain Joint Injection/Drain Primary Site: right knee Prep: site was prepped using aseptic technique Injected: 40 mg of, DepoMedrol and 1% plain lidocaine Procedure: The patient tolerated the procedure well Coding 68241 - Large joint Procedure code (CPT) selection complete Results Reviewed Results Reviewed: X-rays of the patient's right knee show joint space narrowing, subchondral sclerosis, no acute bony abnormalities Assessment & Plan Assessment & Plan (1) Arthritis of right knee: Code(s): M17.11 - Unilateral primary osteoarthritis, right knee Plan Ms. Isidro presents with right knee pain due to degenerative joint disease. I had a lengthy discussion with the patient regarding the treatment options. She wishes to hold off on surgery for as long as possible. I agree with this plan. The risks and benefits of a right knee cortisone injection were discussed at length with the patient. The patient wished to proceed with the injection. Prior to the injection 10 cc of clear fluid were aspirated from her right knee. She tolerated the injection well. She will continue with her activity modifications. She will follow up with me on an as-needed basis should her symptoms not plateau at an unacceptable level over the next few months. Feel free to call me at any time should questions regarding her orthopedic management arise. I spent 22 minutes in reviewing the patient's records and imaging studies, seeing the patient and documenting in the medical record. Orders: Orders AMB Joint Injection/Aspiration Today M17.11 - Unilateral primary osteoarthritis, right knee Medications: Refilled tramadol 50 mg PO Q12H PRN 30 tabs 0RF pain 15 days Coding Level of Care Code Est Pt Level 2 (68821) Diagnoses Arthritis of right knee M17.11 CPT Codes Coding - Large joint: 16948 - Large joint ([id number])
== END 2023-08-12 12:23 | disposition home or self-care (01) ==
LOC: HO.HOS 11:43
PROVIDERS: PCP Internal Medicine; Visit Provider Orthopaedic Surgery
DX: M17.11 Unilateral primary osteoarthritis, right knee (principal)
CPT/HCPCS: 20610; 99213

== ENCOUNTER → 2023-08-12 11:43 | Outpatient (BNVA) | payer OTHER, SELFPAY | PROVIDERS: PCP Internal Medicine; Visit Provider Orthopaedic Surgery | DX: M17.11 Unilateral primary osteoarthritis, right knee (principal) | CPT/HCPCS: 20610; 99212; J1020 ==

== ENCOUNTER 2024-05-16 11:28 | Outpatient (AMB) | payer OTHER, SELFPAY ==
--- NOTE | 2024-05-16 11:28 | A.OFFVIS_ITS ---
Vital Signs 05/16/24 11:32 Height 5 ft 6 in Weight 150 lb BMI 24.2 Intake Visit Reasons: Bilateral knee pains Intake Note: Daphne is a 64 year old female who presents with complaints of progressively worsening bilateral knee pains and swelling. She describes her pains as sharp in nature. She has tried Tylenol and anti-inflammatory medicines which gave her only mild relief. She has also done physical therapy exercises which aggravated her pain. She wishes to hold off on surgery if at all possible. Pari Mutuel Clerk Required: Yes Pari Mutuel Clerk Language: Seismograph Shooter Services: Pari Mutuel Clerk Present Pari Mutuel Clerk Name: ADIEL Escalona/ANGIE Information Interpreted: clinical only Allergies Penicillins [PCN] Allergy (Mild, Verified 05/16/24 11:35) ITCHY penicillin V Allergy (Unknown, Verified 05/16/24 11:35) hives Sulfa (Sulfonamide Antibiotics) Allergy (Unknown, Verified 05/16/24 11:35) swelling/ hives sulfamethoxazole [From BACTRIM] Allergy (Unknown, Verified 05/16/24 11:35) SOB, diffuse rash trimethoprim [From BACTRIM] Allergy (Unknown, Verified 05/16/24 11:35) SOB, diffuse rash penicillin Allergy (Unknown, Uncoded 05/16/24 11:35) rash, itchy bactrim Adverse Reaction (Unknown, Uncoded 05/16/24 11:35) asthma Medication List - Last Reviewed 05/16/24 by ADIEL Cross albuterol sulfate 90 mcg/actuation 2 inhalations inhalation Q4-6H PRN cyclobenzaprine 5 mg PO TID PRN 7 days naproxen 500 mg PO BID [facility] Medical History Asthma Social History (Updated 08/12/23 @ 11:49 by Kaya Verdin CMA) Patient Tobacco Use Status: Current everyday Tobacco user Current occupational status: unemployed Current occupation: Right 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 Physical Exam Vital Signs: BMI result Body Mass Index 24.2 Const Other: Well-nourished well-developed very friendly female awake alert and oriented x3 in no acute distress Extrem Other: Bilateral lower extremity examination shows good capillary refill, no skin lesions noted, normal sensation light touch Bilateral knee examination shows moderate effusions, palpable crepitus with range of motion, pain with range of motion, no instability Office Procedures AMB Joint Injection/Aspiration Joint Injection/Aspiration Primary Site: left knee Prep: site was prepped using aseptic technique Injected: 40 mg of, DepoMedrol and 1% plain lidocaine Procedure: The patient tolerated the procedure well Coding 35637 - Large joint Procedure code (CPT) selection complete AMB Joint Injection/Aspiration Joint Injection/Aspiration Primary Site: right knee Prep: site was prepped using aseptic technique Injected: 40 mg of, DepoMedrol and 1% plain lidocaine Procedure: The patient tolerated the procedure well Coding 45463 - Large joint Procedure code (CPT) selection complete Results Reviewed Results Reviewed: X-rays of the patient's bilateral knees taken previously show joint space narrowing, subchondral sclerosis, no acute bony abnormalities Assessment & Plan Assessment & Plan (1) Arthritis of left knee: Code(s): M17.12 - Unilateral primary osteoarthritis, left knee Category: Medical (2) Arthritis of right knee: Code(s): M17.11 - Unilateral primary osteoarthritis, right knee Category: Medical Plan Ms. Isidro presents with bilateral knee pains due to degenerative joint disease. The risks and benefits of bilateral knee cortisone injections were discussed at length with the patient. The patient wished to proceed. She tole rated the injections well. Prior to her left knee injection I aspirated 15 cc of clear fluid from her left knee. Prior to her right knee injection I aspirated 12 cc of clear fluid from her right knee. I did give her a prescription for diclofenac. She will contact me prior to her follow-up appointment in 3 months should any questions or concerns arise. Feel free to call me at any time should questions regarding her orthopedic management arise. I spent 21 minutes in reviewing the patient's records and imaging studies, seeing the patient and documenting in the medical record. Orders: Orders AMB Joint Injection/Aspiration Today M17.12 - Unilateral primary osteoarthritis, left knee AMB Joint Injection/Aspiration Today M17.11 - Unilateral primary osteoarthritis, right knee Medications: New diclofenac sodium ER 100 mg PO DAILY PRN 30 tabs 3RF pain Coding Level of Care Code Est Pt Level 3 (34689) Complex EM visit Add On G2211 Diagnoses Arthritis of left knee M17.12 Arthritis of right knee M17.11 CPT Codes Coding - 91304 Large joint: 63273 - Large joint ([id number]) Coding - 09709 Large joint: 37561 - Large joint ([id number])
[2024-05-16 11:32] VITALS: BMI 24.2
== END 2024-05-16 11:55 | disposition home or self-care (01) ==
PROVIDERS: PCP Internal Medicine; Visit Provider Orthopaedic Surgery
DX: M17.0 Bilateral primary osteoarthritis of knee (principal)
CPT/HCPCS: 20610; 99213

== ENCOUNTER → 2024-05-16 11:28 | Outpatient (BNVA) | payer OTHER, SELFPAY | PROVIDERS: PCP Internal Medicine; Visit Provider Orthopaedic Surgery | DX: M17.0 Bilateral primary osteoarthritis of knee (principal) | CPT/HCPCS: 20610; 99212; J1010; J2003 ==

== ENCOUNTER 2024-10-31 11:43 | Outpatient (REF) | payer OTHER, SELFPAY ==
--- OUTSIDE RECORDS SUMMARY | 2024-10-31 13:16 | XMS_ITS | Clinical Summary ---
Author Organization [address] Address [address] [place] [address] Phone Care Team Providers Care Cut To Length Operator Name Role Phone Kari Huffman MD Primary Care Provider [phone] Surgical History Surgery Date Site/Laterality Comments CHOLECYSTECTOMY PROCEDURE: HISTORICAL CHOLECYSTECTOMY Medical History Medical History Date Comments HTN (hypertension) DX:HTN (hyper tension) Hyperlipidemia DX:Hyperlipidemi a Varicose veins with pain DX:Vari cose veins with pain Asthma DX:Asthma COPD (chronic obstructive pu lmonary disease) ([facility] V24, [facility] V28) DX:COPD (chronic o bstructive pulmonary disease) ([facility]) GERD (gastroesophageal reflux disease) DX:GERD (gastroesophageal reflux disease) Arthritis DX:Arthritis Depression DX:Depression Migraine DX:Migraine Insomnia DX:Insomnia Social History Tobacco Use Types Packs/Day Years Used Date Smoking Tobacco: Every Day Cigarettes 2 10 Started: 04/13/2007; Last attempted to quit: 04/13/2017 Smokeless Tobacco: Current Comments Unknown Sex and Gender Information Value Date Recorded Sex Assigned at Not on file Legal Sex Female 5:42 AM EST Gender Identity Not on file Sexual Orientation Not on file Obstetrics History Plan of Treatment Health Maintenance Due Date Last Done Comments Breast Cancer Screening 1960 DTaP,Tdap,and Td Vaccines (1 - Tdap) 1979 Pneumococcal Vaccine: 50+ Years (1 of 2 - PCV) 1979 Pneumococcal Vaccine: Pediatrics (0 to 5 Years) and At-Risk Patients (6 to 64 Years) (1 of 2 - PCV) 1979 Zoster Vaccines (1 of 2) 2010 RSV Immunization Adult Patients (1 - Risk 60-74 years 1-dose series) 2020 COVID-19 Vaccine (1 - 2023-2 5 season) 2024 Cholesterol Screening (Lipid Panel) 07/24/2024 Colorectal Cancer Screening: Colonoscopy 07/24/2024 Depression Screening 07/24/2024 HIV Screening 07/24/2024 Hepatitis C Screening 07/24/2024 Hypertension/CHF/CAD Annual BMP Blood Test 07/24/2024 Social Influencers of Health Screening 07/24/2024 Influenza Vaccine (Season Ended) 2025 Cervical Cancer Screening: HPV 05/03/2029 1 07/04/2023, 05/03/2024 HIB Vaccines Aged Out No longer eligi ble based on patient's age to complete this topic HPV Vaccines Aged Out No longer eligi ble based on patient's age to complete this topic Hepatitis A Vaccines Aged Out No long er eligible based on patient's age to complete this topic Hepatitis B Vaccines Aged Out No long er eligible based on patient's age to complete this topic IPV Vaccines Aged Out No longer eligi ble based on patient's age to complete this topic MMR Vaccines Aged Out No longer eligi ble based on patient's age to complete this topic Meningococcal ACWY Vaccine Aged Out N o longer eligible based on patient's age to complete this topic Meningococcal B Vaccine Aged Out No l onger eligible based on patient's age to complete this topic RSV Immunization Patients Under 20 months Aged Out No longer eligible b ased on patient's age to complete this topic Varicella Vaccines Aged Out No longer eligible based on patient's age to complete this topic Procedures Procedure Name Priority Date/Time Associated Diagnosis Comments HPV WITH REFLEX GENOTYPE Routine 05/03/2024 12:00 AM EST Other contact with and (suspected) exposures hazardous to health from Last 3 Months or Most Recently Relevant to Health Maintenance Results * (ABNORMAL) HPV with reflex genotype (05/03/2024 12:00 AM EST) HPV Positive( A) Negative LAB MICROBIOLOGY METHOD 05/12/2024 3:43 PM EST [facility] [place] ([facility]) [facility] Brushing/Spatula Cervix uteri structure / Unknown 05/03/2024 05/11/2024 8:56 AM EST us Kari Huffman MD LAB MOLECULAR DIAGNOSTICS ORD ERABLES Final Result [facility] ([facility]) [facility] LAB [address] [place] [address], from Last 3 Months or Most Recently Relevant to Health Maintenance Insurance MEDICAID - [place] Care Teams Cut To Length Operator Relationship Specialty Start Date End Date Kari Huffman MD [phone] PCP - General Internal Medicine 04/06/18
[2024-10-31 14:00] LABS: MANUAL DIFF FLAG NO
[2024-10-31 14:06] LABS: Basophils Percent Auto 0.3 % (0-2); Eosinophils Absolute Auto 0.1 X10*3/uL (0.0-0.4); Eosinophils Percent Auto 1.6 % (0-4); Hematocrit 39.1 % (37.0-47.0); Hemoglobin 12.6 g/dl (12.0-16.0); Imm Gran Abs Auto 0.04 X10*3/uL (0.00-0.03); Imm Gran Pct Auto 0.4 % (0.0-0.4); Lymphocytes Percent Auto 33.1 % (20-40); Mean Corpuscular HGB Conc 32.2 g/dl (31.0-35.0); Mean Corpuscular Hemoglobin 31.8 pg (27.0-33.0); Mean Corpuscular Volume 98.7 fL (80.0-98.0); Monocytes Absolute Auto 0.6 X10*3/uL (0.1-1.2); Monocytes Percent Auto 6.6 % (2-11); Neutrophils Absolute Auto 5.2 x10*3/uL (2.0-8.3); Platelet Count 172 X10*3/uL (160-400); Red Blood Count 3.96 X10*6/uL (4.20-5.50); Red Cell Distribution Width 14.5 % (11.0-16.0)
[2024-10-31 14:33] LABS: Alanine Aminotransferase 22 U/L (0-31); Alkaline Phosphatase 47 U/L (39-117); Anion Gap 10 (12-20); Aspartate Amino Transferase 23 U/L (5-31); Bilirubin Total 0.4 mg/dL (0.0-1.0); Blood Urea Nitrogen 16 mg/dL (9-16); Calcium 8.8 mg/dL (8.4-10.2); Carbon Dioxide 27 mmol/L (22-29); Chloride 112 mmol/L (96-108); Cholesterol 178 mg/dL (<200); Estimated Glomerular Filt Rate 55; Glucose Random 109 mg/dL (60-115); HDL Cholesterol 89 mg/dL (>40); LDL Cholesterol Calculated 70 mg/dL (<100); Potassium 3.3 mmol/L (3.3-5.1); Sodium 146 mmol/L (135-145); Total Protein 6.3 g/dL (6.5-8.0); Triglycerides 99 mg/dL (<150)
== END 2024-10-31 11:44 | disposition home or self-care (01) ==
LOC: HO.10HDL 11:43
PROVIDERS: Visit Provider Internal Medicine
DX: Z00.00 Encounter for general adult medical examination without abnormal findings (principal); F32.9 Major depressive disorder, single episode, unspecified; I10 Essential (primary) hypertension; J45.909 Unspecified asthma, uncomplicated; L24.9 Irritant contact dermatitis, unspecified cause; Z12.4 Encounter for screening for malignant neoplasm of cervix; Z72.0 Tobacco use
CPT/HCPCS: 36415; 80053; 80061; 85025

== ENCOUNTER → 2025-01-02 04:13 | Outpatient (BNV) | payer OTHER, SELFPAY | PROVIDERS: Emergency Provider Emergency Medicine; PCP Internal Medicine; Visit Provider Radiology Diagnostic Radiology | DX: R41.82 Altered mental status, unspecified (principal); J43.9 Emphysema, unspecified; M51.369 Other intervertebral disc degeneration, lumbar region without mention of lumbar back pain or lower extremity pain | CPT/HCPCS: 70450; 70496; 71045; 72125 ==

== ENCOUNTER 2025-01-02 04:49 | Inpatient (IN) | payer OTHER, SELFPAY ==
[2025-01-02] VITALS (14 sets, daily range): BP systolic 110–143; BP diastolic 63–77; PULSE 60–79; RESP 15–22; TEMP 36.3–36.8; O2SAT 95–100; BMI 39.7
--- NOTE | 2025-01-02 | EEG_ITS ---
This is a 16 channel EEG with an EKG lead. Patient is awake during the tracing. Background EEG rhythm is contaminated by frequent lead and muscle artifacts. When better seen, it is mixed theta beta with low to medium amplitude with no obvious asymmetry or paroxysmal tendency. At times, patient transitioned into drowsiness. Photic stimulation does not produce any significant driving. Hyperventilation is not performed. Cardiac lead does not reveal any significant abnormality. Impression: Limited EEG because of frequent muscle artifacts but no obvious epileptic tendency noted. MTDD
--- NOTE | 2025-01-02 | ECG_ITS ---
Test Reason : AMS/FALL Blood Pressure : */* mmHG Vent. Rate : 62 BPM Atrial Rate : 62 BPM P-R Int : 198 ms QRS Dur : 102 ms QT Int : 504 ms P-R-T Axes : 61 4 -6 degrees QTcB Int : 511 ms Normal sinus rhythm Minimal voltage criteria for LVH, may be normal variant ( R in aVL ) Prolonged QT Abnormal ECG When compared with ECG of 04-Jun-2019 15:17, No significant change was found Referred By: Generic ED Physician Electronically Signed By: BHARGAV VIDALES
--- NOTE | ~2025-01-02 | CT_ITS ---
CLINICAL HISTORY: fall CT cervical spine without IV contrast Comparison: None provided Findings: No acute fracture or traumatic malalignment. Mild dextroconvex curvature of the cervical spine is probably positional. Atlantoaxial relationship is normal. [id number] multilevel degenerative spondylosis of the cervical spine, no high-grade central canal stenosis or foraminal narrowing. Unremarkable prevertebral soft tissue. Centrilobular and paraseptal emphysema of the lung apices, left apical spiculated nodule 5 mm on series 5, image 263, subsolid nodular density 1 cm medial left apex on image 279 is partially included, left greater than right apical scarring. Unremarkable soft tissue of the neck and visualized intracranial contents. Impression: 1. No acute fracture or traumatic malalignment. 2. Emphysema of lung apices, left apical pulmonary nodules, the larger subsolid nodule 1 cm is partially imaged, recommend comparison with previous CT chest if available or further evaluation by outpatient CT chest. This document has been electronically signed by: Debbie Huang MD on 01/02/2025 08:45:42
--- NOTE | ~2025-01-02 | CT_ITS ---
EXAMINATION: CT ABDOMEN WITHOUT CONTRAST CLINICAL INFORMATION: Renal colic. COMPARISON: CT abdomen and pelvis 11/11/2020. TECHNIQUE: Contiguous axial thin section helical images of the abdomen were performed without contrast. The data set was reformatted in the coronal and sagittal planes and reviewed on an independent workstation. This CT examination was performed using dose optimization techniques as appropriate, variously including the following: *Automated exposure control *Adjustment of mA and/or kV according to patient size (this includes techniques or standardized protocols for targeted exams where dose is matched to indication/reason for exam; i.e. extremities or head) *Use of iterative reconstruction technique FINDINGS: LUNG BASES: Mild motion degradation, obscuring fine lung detail. Mild dependent atelectasis. There is a pneumatocele abutting the major fissure in the left lower lobe measuring 1.8 cm with a thin wall. No effusions. There is mild/borderline cardiac enlargement. Normal GE junction. LIVER, GALLBLADDER, BILIARY TREE: Unenhanced liver is normal. Gallbladder is surgically absent. There is no biliary dilatation. PANCREAS: Normal appearance. SPLEEN: Normal unenhanced appearance. ADRENAL GLANDS AND KIDNEYS: Normal adrenal glands. Kidneys are normal bilaterally without hydronephrosis, calculus, mass, or hydroureter. No significant perirenal stranding. BOWEL LOOPS: Imaged bowel is normal in appearance. The imaged appendix is normal. LYMPH NODES: Normal. VASCULAR: Mild to moderate calcific atheromatous disease of the aorta and iliac arteries. No aneurysm. OSSEOUS STRUCTURES: No suspicious lytic or blastic bone lesions. Degenerative changes in the spine most predominant at L4-S1, with associated disc vacuum phenomenon and advanced facet arthrosis. There is a chronic compression deformity of T11, approximately 30% height. CT/CT abdomen wo IV con IMPRESSION: 1. No acute findings in the abdomen. No urological calculus or obstruction. Electronically signed by: Bhupinder Lara MD 01/04/2025 12:05 PM EDT
--- NOTE | ~2025-01-02 | CT_ITS ---
CLINICAL HISTORY: fall CT head without contrast Comparison: None Findings: No acute intracranial hemorrhage, acute major vascular distribution infarct, intracranial mass, midline shift or hydrocephalus. No extra-axial fluid collection. Mild periventricular and subcortical white matter hypoattenuation, nonspecific, most frequently ascribed to chronic small vessel ischemic disease. Age-appropriate global atrophy. Intracranial vascular calcifications present. Visualized orbits are within normal range. Visualized paranasal sinuses, and mastoid air cells are unremarkable. The cranium appears intact. Superficial soft tissue is unremarkable. Impression: 1. No acute intracranial finding. 2. Chronic findings as discussed above. This document has been electronically signed by: Debbie Huang MD on 01/02/2025 08:33:12
--- NOTE | ~2025-01-02 | MR_ITS ---
EXAMINATION: MR BRAIN WITHOUT IV CONTRAST HISTORY: Altered mental status TECHNIQUE: Sagittal T1, and axial T1, FLAIR, T2, gradient echo, and diffusion weighted MR images of the brain were obtained. COMPARISON: Correlation is made with an unenhanced head CT dated 01/02/2025. FINDINGS: The examination is limited by patient motion. The pituitary is normal in size. The cerebellar tonsils are normally located. There are scattered periventricular and subcortical white matter hyperintensities on the FLAIR and T2-weighted images which are nonspecific, but often seen in the setting of small vessel ischemic disease. There is no mass effect or midline shift. No intra or extra-axial fluid collections are identified. There are no foci of restricted diffusion. Normal vascular flow voids are noted in the basilar and carotid arteries. The visualized paranasal sinuses are clear. MR/MR head/brain wo con IMPRESSION: No acute intracranial abnormality. No evidence of an acute infarct. Electronically signed by: Jaylen Chow MD 01/03/2025 12:20 PM EDT
--- NOTE | ~2025-01-02 | XR_ITS ---
EXAMINATION: XR CHEST 1 VIEW HISTORY: AMS, found down COMPARISON: Comparison is made with the prior examination dated 06/14/2023. FINDINGS: Two portable views of the chest performed at 8:52 AM are submitted. The lungs are expanded and clear. There is no pleural effusion, pneumothorax, or pulmonary vascular congestion. The heart is normal in size given technique. There is degenerative disc disease of the spine. XR/XR chest 1V IMPRESSION: No acute cardiopulmonary abnormality. Electronically signed by: Jaylen Chow MD 01/02/2025 09:08 AM EDT
--- NOTE | ~2025-01-02 | CT_ITS ---
EXAMINATION: CT HEAD NECK ANGIOGRAPHY WITH IV CONTRAST HISTORY: AMS, lethargic COMPARISON: Correlation is made with the unenhanced head CT performed earlier in the day. TECHNIQUE: Helical axial images were obtained from the aortic arch to the vertex after intravenous injection of contrast per standard departmental protocol. MIP/3D reconstructions were obtained and reviewed. One or more of the following techniques was used for dose reduction: Automated exposure control, adjustment of the mA and/or kV according to patient size, use of iterative reconstruction technique. DLP: 645 mGy-cm FINDINGS: CTA NECK: AORTIC ARCH: The visualized portions of the arch as well as innominate, right subclavian, and left subclavian arteries show no hemodynamically significant stenosis. There is dilatation of the ascending thoracic aorta measuring up to 3.9 cm in diameter. Right common carotid artery: There is no large vessel occlusion or hemodynamically significant stenosis. Right internal carotid artery: There is no large vessel occlusion or hemodynamically significant stenosis. Left common carotid artery: There is no large vessel occlusion or hemodynamically significant stenosis. Left internal carotid artery: There is a moderate amount of calcified plaque in the proximal internal carotid artery. There is no large vessel occlusion or hemodynamically significant stenosis. (Extracranial internal carotid artery stenosis estimates are based on use of distal ICA as the denominator.) Right vertebral artery: There is no large vessel occlusion or hemodynamically significant stenosis. Left vertebral artery: There is no large vessel occlusion or hemodynamically significant stenosis. CTA HEAD: Right intracranial ICA: There is no large vessel occlusion, hemodynamically significant stenosis, or aneurysm. Right FE: There is no large vessel occlusion, hemodynamically significant stenosis, or aneurysm. Right MCA: There is no large vessel occlusion, hemodynamically significant stenosis, or aneurysm. Left intracranial ICA: There is no large vessel occlusion, hemodynamically significant stenosis, or aneurysm. Left FE: There is no large vessel occlusion, hemodynamically significant stenosis, or aneurysm. Left MCA: There is no large vessel occlusion, hemodynamically significant stenosis, or aneurysm. Basilar artery: There is no large vessel occlusion, hemodynamically significant stenosis, or aneurysm. Superior cerebellar arteries: There is no large vessel occlusion, hemodynamically significant stenosis, or aneurysm. Right HANDLE TURNER: There is no large vessel occlusion, hemodynamically significant stenosis, or aneurysm. Left HANDLE TURNER: There is no large vessel occlusion, hemodynamically significant stenosis, or aneurysm. VEINS: Venous enhancement is within normal limits for this technique. SOFT TISSUES: The bilateral parotid, submandibular, and thyroid glands are unremarkable. No laryngeal abnormality is identified. There is no cervical lymphadenopathy. There are emphysematous changes at the lung apices. CT/CT angio head neck IMPRESSION: 1. No large vessel occlusion, hemodynamically significant stenosis, or aneurysm in the head and neck. 2. Dilatation of the ascending thoracic aorta measuring up to 3.9 cm in diameter. Electronically signed by: Jaylen Chow MD 01/02/2025 08:40 AM EDT
[2025-01-02 04:53] LABS: Glucose, Whole Blood 138 mg/dL (60-115)
--- NOTE | 2025-01-02 05:08 | PC.NURSE ---
pt laura, provider at bed side as pt is unable to respond to questions, denies alcohol use and states she has head and back pain, no other information given.
[2025-01-02 05:11] LABS: Hematocrit 35.3 % (37.0-47.0); Hemoglobin 12.3 g/dl (12.0-16.0); Imm Gran Abs Auto 0.07 X10*3/uL (0.00-0.03); Imm Gran Pct Auto 0.7 % (0.0-0.4); Lymphocytes Absolute Auto 1.2 X10*3/uL (1.2-4.9); MANUAL DIFF FLAG NO; Mean Corpuscular HGB Conc 34.8 g/dl (31.0-35.0); Mean Corpuscular Hemoglobin 31.6 pg (27.0-33.0); Mean Corpuscular Volume 90.7 fL (80.0-98.0); NRBC Abs Auto 0.000 X10*3/uL (0.0-0.012); NRBC Pct Auto 0.0 /100WBC (0.0-0.2); Platelet Count 185 X10*3/uL (160-400); Red Blood Count 3.89 X10*6/uL (4.20-5.50); White Blood Count 9.8 X10*3/uL (4.8-10.8)
--- NOTE | 2025-01-02 05:12 | ED_ITS ---
HPI - General Adult General Chief complaint: Fall Stated complaint: fall? alt mental Time Seen by Provider: 01/02/25 05:03 Source: EMS and RN notes reviewed Mode of arrival: EMS Limitations: altered mental status History of Present Illness ED Provider: Dr. Chantal Rueda HPI narrative: 64-year-old female with unknown past medical history presents via EMS after being found down by her this morning. Patient's reportedly went to work last night and returns this morning to find his on the ground. Patient is unable to answer any questions. She is somnolent, difficult to arouse. Before falling asleep, she reported a severe headache and feeling sick to her stomach. Also admits to back pain that is poorly characterized. Patient denies alcohol or medication use today. Point of care glucose by EMS 167. Related Data Home Medications ?Medication ?Instructions ?Recorded ?Confirmed albuterol sulfate 2.5 mg/3 mL 2.5 mg inhalation BID ME N 01/02/25 01/02/25 (0.083 %) solution for nebulization Shortness Of Breat h Or Wheezing albuterol sulfate 90 mcg/actuation 2 puff inhalation Q ID PRN asthma 01/02/25 01/02/25 aerosol inhaler (Ventolin HFA) bupropion HCl 150 mg 24 hr tablet, 150 mg PO DAILY 10/2201/02/25 extended release losartan 100 1 tab PO DAILY 01/02/25 0810/22 mg-hydrochlorothiazide 25 mg tablet sertraline 100 mg tablet 100 mg PO DAILY 01/02/2510/22 Allergies Allergy/AdvReac Type Severity Reaction Status Date / Time Penicillins (PCN) Allergy Mild ITCHY Verified 01/02/25 04:57 penicillin V Allergy Unknown hives Verified 01/02/25 04:57 Sulfa (Sulfonamide Allergy Unknown swelling/ Verified 01/02/25 04:57 Antibiotics) hives sulfamethoxazole (From Allergy Unknown SOB, Verified 01/02/25 04:57 BACTRIM) diffuse rash trimethoprim (From BACTRIM) Allergy Unknown SOB, Verified 01/02/25 04:57 diffuse rash penicillin Allergy Unknown rash, itchy Uncoded 01/02/25 04:57 bactrim AdvReac Unknown asthma Uncoded 01/02/25 04:57 Review of Systems 2 Review of Systems: Yes Unobtainable due to mental status [facility] Past Medical History Source: unable to obtain, old records reviewed and nursing notes reviewed Medical History Asthma Social History Social History Unable to assess alcohol history related to: Unable to respond Patient Tobacco Use Status: Current everyday Tobacco user Smoked in Last 30 Days: Yes Use of substances other than those prescribed or required for medical reasons: Unable to respond Advance Directives: No Advance Directives Information Provided: Yes Current occupational status: unemployed Current occupation: Right 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 Physical Exam ED Exam Exam: GENERAL: Lethargic, opens eyes to voice, no slurred speech, localizes to pain, GCS 12. SKIN: Normal skin color for ethnicity, warm, dry, no rashes noted. HEENT: Normocephalic, atraumatic, no stridor, posterior oropharynx nonerythematous, dentition intact, EOMI, pupils are 3mm reactive bilaterally. NECK: Soft, supple, no step-offs, no deformities, no lymphadenopathy. CHEST: Heart regular rhythm, no murmurs, symmetric chest rise and fall. PULMONARY: Clear to auscultation bilaterally, diminished at the bases, no labored breathing, no wheezes/rhales/rhonchi. ABDOMINAL: Soft, nondistended, positive bowel sounds in all quadrants. : Deferred. MUSCULOSKELETAL: Normal tone, full range of motion, no deformities, no peripheral edema. NEURO: Lethargic, opens eyes to voice, no slurred speech, localizes to pain, GCS 12,moves all 4 limbs equally, no focal neurologic deficits aside from altered mentation Vital Signs: Vital Signs - 24 hr 01/02/25 05:17 01/02/25 07:04 01/02/25 07:27 Temperature 97.4 F Pulse Rate 63 60 65 Respiratory Rate 16 16 18 Blood Pressure 143/76 H 110/67 123/77 Pulse Oximetry 95 99 98 Oxygen Delivery Method Room Air Room Air Room Air Oxygen Flow Rate 01/02/25 09:44 01/02/25 10:17 Temperature Pulse Rate 63 61 Respiratory Rate 16 18 Blood Pressure 143/76 H 124/74 Pulse Oximetry 100 Oxygen Delivery Method Nasal Cannula Nasal Cannula Oxygen Flow Rate 2 2 BMI result Body Mass Index 39.7 Course Course Course Narrative: sign out 8am - she was intermittently agitated, RN noted shaking/jerking on R side for a few seconds, patient had eyes open but then she became agitated after. I did not see this event. I ordered IV valium 2.5mg and I am going to add on ammonia, TSH, CT normal, getting urine. Unsure if this is seizure activity. Africa Mendez, DO 01/02/25 0923 Reevaluation(s) Reevaluation #1: doing post valium will admit for possible MRI/EEG I do not think she has infection she also could have cocaine induced psychosis Medications Administered Generic Name Dose Route Start Last Admin Trade Name Freq PRN Reason Stop Dose Admin Albuterol/Ipratropium 3 ml 01/02/25 12:00 01/02/25 19:55 Albuterol/Iprat 2.5/0.5mg 3 Ml Ampul.Neb INHALE 3 ml RQ4H WHILE AWAKE CHARLES Administration Diazepam 2.5 mg 01/02/25 12:51 01/02/25 13:46 Diazepam 10 Mg/2 Ml Cartridge IVPUSH 2.5 mg Q6H PRN Administration agitation Dextrose 1,000 mls @ 100 mls/hr 01/02/25 11:45 01/02/25 13:02 D5w IVCONT 100 mls/hr .Q10H CHARLES Administration Potassium Chloride 10 meq in 100 mls @ 100 mls/hr 01/02/25 19:15 01/02/25 20:40 Potassium Chloride/H20 IV 01/02/25 23:14 100 mls/hr Q1H CHARLES Administration Sodium Chloride 3 ml 01/02/25 16:00 01/02/25 17:09 0.9 % Sodium Chloride Flush 3 Ml Syringe IVFLUSH Not Given QSHIFT CHARLES Discontinued Medications Generic Name Dose Route Start Last Admin Trade Name Freq PRN Reason Stop Dose Admin Diazepam 2.5 mg 01/02/25 09:20 01/02/25 09:23 Diazepam 10 Mg/2 Ml Cartridge IVPUSH 01/02/25 09:21 2.5 mg STAT STA Administration Diazepam 7.5 mg 01/02/25 14:41 01/02/25 15:09 Diazepam 10 Mg/2 Ml Cartridge IVPUSH 01/02/25 14:42 5 mg STAT STA Administration Lactated Ringer's 1,000 mls @ 999 mls/hr 01/02/25 05:56 01/02/25 08:42 Lr IV 01/02/25 06:56 Infused .Q1H1M ONE Infusion Potassium Chloride 10 meq in 100 mls @ 100 mls/hr 01/02/25 08:45 01/02/25 11:32 Potassium Chloride/H20 IV 01/02/25 10:44 Infused Q1H CHARLES Infusion Lactated Ringer's 1,000 mls @ 80 mls/hr 01/02/25 08:45 01/02/25 13:05 Lr IVCONT Infused .[id number] CHARLES Infusion Iohexol 75 ml 01/02/25 06:37 01/02/25 06:37 Iohexol 350 Mg/Ml 100 Ml Infus..Btl IV 01/02/25 06:38 75 ml ONCE ONE Administration Methylprednisolone Sodium Succinate 60 mg 01/02/25 11:28 01/02/25 13:01 Methylprednisolone Sod Succ 125 Mg/2 Ml Vial IVPUSH 01/02/25 11:29 60 mg ONCE STA Administration Medical Decision Making Medical Decision Making [facility] Narrative: Patient presents today with a chief complaint of altered mental status. Differential diagnosis for AMS is incredibly broad and includes infection, intracranial process such as hemorrhage, stroke or mass, electrolyte abnormality, hypercarbia, hypoxia, toxic encephalopathy, among many others. Broad-based workup was initiated including head CT to further evaluate the etiology of patient's symptoms based on the above exam and history. 5:59 AM 01/02/2025 (Dr. Chantal Rueda, D.O.) has been is now at bedside, reporting that she has had some episodes of lethargy and weakness, headaches and nausea ongoing over the last 2 days or so. Admits that she will get up during the day to cook him dinner and has periods of feeling normal, mixed with episodes of being extremely fatigued, requiring sleeping during the middle of the day which is abnormal for her and describing severe headaches. She had a couple of falls over the last 2 days. Unclear if she had a head strike during those times. Today she was found down in the bedroom on the hardwood floors next to a pile of vomit. No seizure activity, no evidence of loss of bowel or bladder control. She did not bite her tongue. Symptoms are intermittent in nature. No evidence of infection. Has been adamantly denies any drug or alcohol use. States that she used to drink alcohol but no longer does. She is a smoker. 7:44 AM 01/02/2025 (Dr. Chantal Rueda, D.O.) signing out to oncoming provider pending CT results and final disposition. Differential Diagnosis Differential Diagnoses: The differential diagnosis associated with the presentation includes (As above) Admission/Observation Consideration of admission/observation: Escalation of care including admission/observation considered Lab Data MDM Lab Attestation statement: I reviewed the patient's lab results. 01/02/25 05:05 01/02/25 17:17 Labs: Lab Results 01/02/25 01/02/25 01/02/25 Range/Units 04:49 05:05 05:14 WBC 9.8 (4.8-10.8) X10*3/uL RBC 3.89 L (4.20-5.50) X10*6/uL Hgb 12.3 (12.0-16.0) g/dl Hct 35.3 L (37.0-47.0) % MCV 90.7 (80.0-98.0) fL MCH 31.6 (27.0-33.0) pg MCHC 34.8 (31.0-35.0) g/dl RDW 13.8 (11.0-16.0) % Plt Count 185 (160-400) X10*3/uL MPV 10.7 (9.4-12.3) fL Immature Gran % (Auto) 0.7 H (0.0-0.4) % Neut % (Auto) 83.5 H (45-73) % Lymph % (Auto) 12.7 L (20-40) % [place] % (Auto) 2.7 (2-11) % Eos % (Auto) 0.1 (0-4) % Baso % (Auto) 0.3 (0-2) % Lymph # (Auto) 1.2 (1.2-4.9) X10*3/uL [place] # (Auto) 0.3 (0.1-1.2) X10*3/uL Eos # (Auto) 0.0 (0.0-0.4) X10*3/uL Baso # (Auto) 0.0 (0.0-0.2) X10*3/uL Abs Immat Gran (auto) 0.07 H (0.00-0.03) X10*3/uL Absolute Neuts (auto) 8.2 (2.0-8.3) x10*3/uL Absolute Nucleated RBC 0.000 (0.0-0.012) X10*3/uL Nucleated RBC % (auto) 0.0 (0.0-0.2) /100WBC VBG pH 7.36 (7.32-7.43) VBG pCO2 44 mmHg VBG pO2 46 mmHg VBG HCO3 25 (22-26) mmol/L VBG O2 Saturation 76.0 % VBG Base Excess 0.3 mmol/L Sodium 146 H (135-145) mmol/L Potassium 3.2 L (3.3-5.1) mmol/L Chloride 112 H (96-108) mmol/L Carbon Dioxide 24 (22-29) mmol/L Anion Gap 13 (12-20) BUN 22 H (9-16) mg/dL Creatinine 1.68 H (0.5-1.4) mg/dL Estim Creat Clear Calc 35.6 Estimated GFR 31 POC Glucose 138 H (60-115) mg/dL Random Glucose 148 H (60-115) mg/dL Calcium 9.4 D (8.4-10.2) mg/dL Magnesium 2.3 (1.6-2.6) mg/dL Total Bilirubin 0.3 (0.0-1.0) mg/dL AST 16 (5-31) U/L ALT 8 (0-31) U/L Alkaline Phosphatase 65 (39-117) U/L Ammonia (13-55) umol/L Total Creatine Kinase 91 (26-140) U/L Troponin I High Sens 5.4 (<3.5-17.0) ng/L C-Reactive Protein 0.57 H (< or = 0.50) mg/dL Total Protein 7.1 (6.5-8.0) g/dL Albumin 4.3 (3.5-5.0) g/dL TSH 0.85 (0.32-4.0) uIU/mL Urine Color Urine Appearance Urine pH (5.0-9.0) Ur Specific [place] (1.005-1.025) Urine Protein (Neg-Trace) mg/dL Urine Glucose (UA) (Negative) mg/dL Urine Ketones (Negative) mg/dL Urine Blood (Negative) Urine Nitrite (Negative) Ur Leukocyte Esterase (Negative) Urine RBC (0-2) /HPF Urine WBC (0-5) /HPF Ur Squamous Epith Cells (0-2) /HPF Calcium Oxalate Crystal Urine Bacteria (None Seen) Hyaline Casts (0-2) /LPF Granular Casts Urine Opiates Screen (Not Detect) Ur Buprenorphine Scrn (Not Detect) ng/mL Ur Oxycodone Screen (Not Detect) ng/mL Urine Methadone Screen (Not Detect) ng/mL Urine Fentanyl Screen (Not Detect) Ur Barbiturates Screen (Not Detect) Ur Phencyclidine Scrn (Not Detect) Ur Amphetamines Screen (Not Detect) U Benzodiazepines Scrn (Not Detect) Urine Cocaine Screen (Not Detect) U Marijuana (THC) Screen (Not Detect) Ethyl Alcohol < 10 mg/dL 01/02/25 01/02/25 Range/Units 09:12 09:58 WBC (4.8-10.8) X10*3/uL RBC (4.20-5.50) X10*6/uL Hgb (12.0-16.0) g/dl Hct (37.0-47.0) % MCV (80.0-98.0) fL MCH (27.0-33.0) pg MCHC (31.0-35.0) g/dl RDW (11.0-16.0) % Plt Count (160-400) X10*3/uL MPV (9.4-12.3) fL Immature Gran % (Auto) (0.0-0.4) % Neut % (Auto) (45-73) % Lymph % (Auto) (20-40) % [place] % (Auto) (2-11) % Eos % (Auto) (0-4) % Baso % (Auto) (0-2) % Lymph # (Auto) (1.2-4.9) X10*3/uL [place] # (Auto) (0.1-1.2) X10*3/uL Eos # (Auto) (0.0-0.4) X10*3/uL Baso # (Auto) (0.0-0.2) X10*3/uL Abs Immat Gran (auto) (0.00-0.03) X10*3/uL Absolute Neuts (auto) (2.0-8.3) x10*3/uL Absolute Nucleated RBC (0.0-0.012) X10*3/uL Nucleated RBC % (auto) (0.0-0.2) /100WBC VBG pH (7.32-7.43) VBG pCO2 mmHg VBG pO2 mmHg VBG HCO3 (22-26) mmol/L VBG O2 Saturation % VBG Base Excess mmol/L Sodium (135-145) mmol/L Potassium (3.3-5.1) mmol/L Chloride (96-108) mmol/L Carbon Dioxide (22-29) mmol/L Anion Gap (12-20) BUN (9-16) mg/dL Creatinine (0.5-1.4) mg/dL Estim Creat Clear Calc Estimated GFR POC Glucose (60-115) mg/dL Random Glucose (60-115) mg/dL Calcium (8.4-10.2) mg/dL Magnesium (1.6-2.6) mg/dL Total Bilirubin (0.0-1.0) mg/dL AST (5-31) U/L ALT (0-31) U/L Alkaline Phosphatase (39-117) U/L Ammonia 34 (13-55) umol/L Total Creatine Kinase (26-140) U/L Troponin I High Sens (<3.5-17.0) ng/L C-Reactive Protein (< or = 0.50) mg/dL Total Protein (6.5-8.0) g/dL Albumin (3.5-5.0) g/dL TSH (0.32-4.0) uIU/mL Urine Color Yellow Urine Appearance Clear Urine pH 6.0 (5.0-9.0) Ur Specific [place] >= 1.030 H (1.005-1.025) Urine Protein 30 (1+) H (Neg-Trace) mg/dL Urine Glucose (UA) Negative (Negative) mg/dL Urine Ketones Negative (Negative) mg/dL Urine Blood Negative (Negative) Urine Nitrite Negative (Negative) Ur Leukocyte Esterase Negative (Negative) Urine RBC 0-2 (0-2) /HPF Urine WBC 0-5 (0-5) /HPF Ur Squamous Epith Cells 0-2 (0-2) /HPF Calcium Oxalate Crystal Present Urine Bacteria None Seen (None Seen) Hyaline Casts 11-20 (0-2) /LPF Granular Casts Present Urine Opiates Screen Not Detected (Not Detect) Ur Buprenorphine Scrn Not Detected (Not Detect) ng/mL Ur Oxycodone Screen Not Detected (Not Detect) ng/mL Urine Methadone Screen Not Detected (Not Detect) ng/mL Urine Fentanyl Screen Not Detected (Not Detect) Ur Barbiturates Screen Not Detected (Not Detect) Ur Phencyclidine Scrn Not Detected (Not Detect) Ur Amphetamines Screen Not Detected (Not Detect) U Benzodiazepines Scrn Not Detected (Not Detect) Urine Cocaine Screen POSITIVE H (Not Detect) U Marijuana (THC) Screen Not Detected (Not Detect) Ethyl Alcohol mg/dL Independent Interpretation I performed an independent interpretation of an: EKG Interpretation: My independent interpretation of the ECG reveals normal sinus rhythm with rate of 62, normal axis, QTC 511, no ST elevations or depressions to suggest ischemic changes, relatively unchanged from previous on 06/04/2019. Independent Historian Clinical information obtained from an independent historian. History obtained from or confirmed by: EMS Chronic Conditions Patient?s care impacted by: Other (Asthma) Critical Care Time Critical Care Time Critical Care Time: Yes Total Critical Care Time: 35 Attestation: review of records, repeat assessments, IV valium for agitation, admission I attest to this time spent taking care of the patient Discharge Plan Discharge Clinical Impression: Encephalopathy acute, Cocaine abuse Patient Disposition: Admitted As Inpatient Interventions: Admission Worksheet (ED) Last Done: 01/02/25 21:02
[2025-01-02 05:17] LABS: VBG HCO3 25 mmol/L (22-26); VBG O2 % Saturation 76.0 %
[2025-01-02 05:17] LABS: Venous Blood Gas Refer to POC result
[2025-01-02 05:28] LABS: Alanine Aminotransferase 8 U/L (0-31); Albumin Level 4.3 g/dL (3.5-5.0); Alkaline Phosphatase 65 U/L (39-117); Anion Gap 13 (12-20); Aspartate Amino Transferase 16 U/L (5-31); Blood Urea Nitrogen 22 mg/dL (9-16); Calcium 9.4 mg/dL (8.4-10.2); Carbon Dioxide 24 mmol/L (22-29); Chloride 112 mmol/L (96-108); Creatinine Clr Calc Pharmacy 35.6; Estimated Glomerular Filt Rate 31; Potassium 3.2 mmol/L (3.3-5.1); Sodium 146 mmol/L (135-145); Total Protein 7.1 g/dL (6.5-8.0)
[2025-01-02 05:35] LABS: Troponin-I High Sensitivity 5.4 ng/L (<3.5-17.0)
[2025-01-02 06:16] LABS: Magnesium 2.3 mg/dL (1.6-2.6)
[2025-01-02] MEDS: iohexoL 350 MG/ML 100 ML INFUS..BTL 75 ML IV (06:37)
[2025-01-02] MEDS: Lactated Ringers 1,000 ML 999 ML IV (07:01)
[2025-01-02] MEDS: Lactated Ringers 1,000 ML 80 ML IVCONT (08:42)
[2025-01-02] MEDS: Potassium Chloride/H20 10 MEQ/100 ML PIGGYBACK 100 MEQ IV ×6 (08:42→23:21)
[2025-01-02] MEDS: diazePAM 10 MG/2 ML CARTRIDGE 2.5 MG IVPUSH ×2 (09:23→13:46)
--- NOTE | 2025-01-02 09:58 | PC.NURSE ---
Pt asleep with intermittent periods of agitation and restlessness. Attempting to calm pt verbally with staff anesthetist with little improvement. Pt able to report low back pain but otherwise not verbalizing any other complaints or answering questions asked. Brief period of right body jerky movements, pt alert during episode. Exp wheezing noted likely to pt increased agitation and restless, LS clear, wheezing mostly upper airways. VSS. NSR. Rectal temp 97.0. Straight cath for UA/SOLIMAN. Additional labs sent. Medicated as charted with some improvement. Plan of care ongoing.
[2025-01-02 10:08] LABS: Appearance Urine Clear; Glucose Urine UA Negative (Negative); PH 6.0 (5.0-9.0); Specific Gravity - Urine >= 1.030 (1.005-1.025); UMIC TRIGGER UACC YES
[2025-01-02 10:27] LABS: Cannabinoid Screen Urine Not Detected (Not Detect)
[2025-01-02 10:48] LABS: Ammonia 34 umol/L (13-55)
[2025-01-02 11:48] LABS: Venous Blood Gas Refer to POC result
[2025-01-02 11:49] LABS: VBG HCO3 26 mmol/L (22-26); VBG O2 % Saturation 78.0 %
[2025-01-02] MEDS: Albuterol/Iprat 2.5/0.5MG 3 ML AMPUL.NEB INHALE ×3 (11:59→19:55)
--- NOTE | 2025-01-02 12:33 | P.HPHOSP_ITS ---
History of Present Illness Date of Service: 01/02/25 Attending physician on admission: Roman Kempsimin Hunter Chief Complaint: Found on the ground by her Daphne Isidro is a 64 years old woman past medical history significant for asthma, essential hypertension, mood disorder and ongoing tobacco smoking was brought to the emergency department after she was found on the ground her this morning. Upon arrival to the ED she was unable to answer questions for the ED staff and was noted to be somnolent and difficult to arouse. It seems like she was reporting severe headache and GI upset. EMS verify her blood glucose was 167. On evaluation, the patient was sedated and still difficult to arouse, however, was able to open her eyes but will fall asleep immediately. According to nursing she received Valium IV. In the ED, she was found to have normal vital signs. She was placed on supplemental oxygen by nursing, currently on 2 L/min via nasal cannula. Her blood workup is significant for hypernatremia 146, hyperchloremia and hypokalemia of 3.2. Her creatinine is 1.68 (baseline around 0.9 - 1.0). Glucose 168. There is no leukocytosis. Hemoglobin and platelets are normal. Ammonia level and total CK are normal. TSH is 0.85. LFTs are unremarkable. Serum Urinalysis showed elevated specific gravity 1+ protein, without evidence of UTI. Her toxicology is positive for cocaine. ETOH level is less than 10. Head CT scan without contrast showed no acute intracranial findings. Head and neck CTA showed no large vessel occlusion, stenosis or aneurysms. The ascending thoracic aorta was noted to be dilated, 3.9 cm. C-spine CT scan showed no acute fracture or traumatic malalignment. Emphysema noted in the apices and left apical pulmonary nodule. CXR is negative. ECG showed normal sinus rhythm and prolonged QT (511 ms). ED tx: LR 1 L bolus, KCl IV, Valium 2.5 mg IV Review of Systems 2 Review of Systems: All 12 systems were reviewed and normal except as noted in HPI. [facility] Medical History Asthma Social History Unable to assess alcohol history related to: Unable to respond Patient Tobacco Use Status: Current everyday Tobacco user Smoked in Last 30 Days: Yes Use of substances other than those prescribed or required for medical reasons: Unable to respond Advance Directives: No Advance Directives Information Provided: Yes Current occupational status: unemployed Current occupation: Right 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 Meds Allergies Allergy/AdvReac Type Severity Reaction Status Date / Time Penicillins (PCN) Allergy Mild ITCHY Verified 01/02/25 04:57 penicillin V Allergy Unknown hives Verified 01/02/25 04:57 Sulfa (Sulfonamide Allergy Unknown swelling/ Verified 01/02/25 04:57 Antibiotics) hives sulfamethoxazole (From Allergy Unknown SOB, Verified 01/02/25 04:57 BACTRIM) diffuse rash trimethoprim (From BACTRIM) Allergy Unknown SOB, Verified 01/02/25 04:57 diffuse rash penicillin Allergy Unknown rash, itchy Uncoded 01/02/25 04:57 bactrim AdvReac Unknown asthma Uncoded 01/02/25 04:57 Active Medications: Current Medications Albuterol Sulfate (Albuterol Sulfate (0.083%) 2.5 Mg/3 Ml Vial.Neb) 2.5 mg INHALE Q2H PRN PRN Reason: Shortness of Breath/Wheezing Albuterol/Ipratropium (Albuterol/Iprat 2.5/0.5mg 3 Ml Ampul.Neb) 3 ml INHALE RQ4H WHILE AWAKE [facility] Last Admin: 01/02/25 11:59 Dose: 3 ml Diazepam (Diazepam 10 Mg/2 Ml Cartridge) 5 mg IVPUSH Q6H PRN PRN Reason: agitation Enoxaparin Sodium (Enoxaparin Sodium 40 Mg/0.4 Ml Syringe) 40 mg SUBCUT Q24H [facility] Lactated Ringer's (Lr) 1,000 mls @ 80 mls/hr IVCONT .[id number] [facility] Last Admin: 01/02/25 08:42 Dose: 80 mls/hr Dextrose (D5w) 1,000 mls @ 100 mls/hr IVCONT .Q10H [facility] Sodium Chloride (0.9 % Sodium Chloride Flush 3 Ml Syringe) 3 ml IVFLUSH QSHIFT [facility] Home Medications ?Medication ?Instructions ?Recorded ?Confirmed ?Last Taken ?Type bupropion HCl 150 mg 24 hr tablet, 150 mg PO DAILY 10/22 Unknown History extended release losartan 100 1 tab PO DAILY 01/02/25 Unk nown History mg-hydrochlorothiazide 25 mg tablet sertraline 100 mg tablet 100 mg PO QAM 01/02/25 Unkn own History Physical Exam 2 Vital Signs and Narrative: Vital Signs: Last Vital Signs Temp 97.4 F 01/02/25 05:17 Pulse 60 01/02/25 12:01 Resp 16 01/02/25 12:01 BP 124/74 01/02/25 10:17 Pulse Ox 100 01/02/25 09:44 O2 Del Method Nasal Cannula 01/02/25 10:17 O2 Flow Rate 2 01/02/25 10:17 BMI result Body Mass Index 39.7 Constitutional - Awake and Alert, No apparent distress HEENT - PERRL, EOMI Hear - RRR, no murmurs Lungs - Normal lung expansion, Normal respiratory effort, No respiratory distress. Mild tachypnea. End expiratory wheezes. No crackles or rhonchi. Abdomen - NT / ND; +BS; No rebound or guarding Extremities - no calf tenderness bilaterally, no swelling Musculoskeletal - Normal inspection, normal ROM Skin - Warm/Dry Neurological - Sedated. Open eyes upon calling her name. No facial droop. Psychological - No agitation. Results Labs 01/02/25 05:05 01/02/25 05:05 Labs: Laboratory Results - last 24 hr 01/02/25 01/02/25 01/02/25 04:49 05:05 05:14 MCV 90.7 MCH 31.6 MCHC 34.8 RDW 13.8 Plt Count 185 MPV 10.7 Immature Gran % (Auto) 0.7 H Neut % (Auto) 83.5 H Lymph % (Auto) 12.7 L [place] % (Auto) 2.7 Eos % (Auto) 0.1 Baso % (Auto) 0.3 Lymph # (Auto) 1.2 Canadian # (Auto) 0.3 Eos # (Auto) 0.0 Baso # (Auto) 0.0 Abs Immat Gran (auto) 0.07 H Absolute Neuts (auto) 8.2 Absolute Nucleated RBC 0.000 Nucleated RBC % (auto) 0.0 VBG pH 7.36 VBG pCO2 44 VBG pO2 46 VBG HCO3 25 VBG O2 Saturation 76.0 VBG Base Excess 0.3 Anion Gap 13 Estim Creat Clear Calc 35.6 Estimated GFR 31 POC Glucose 138 H Random Glucose 148 H Calcium 9.4 D Magnesium 2.3 Total Bilirubin 0.3 AST 16 ALT 8 Alkaline Phosphatase 65 Ammonia Total Creatine Kinase 91 C-Reactive Protein 0.57 H Total Protein 7.1 Albumin 4.3 TSH 0.85 Urine Color Urine Appearance Urine pH Ur Specific [place] Urine Protein Urine Glucose (UA) Urine Ketones Urine Blood Urine Nitrite Ur Leukocyte Esterase Urine RBC Urine WBC Ur Squamous Epith Cells Calcium Oxalate Crystal Urine Bacteria Hyaline Casts Granular Casts Urine Opiates Screen Ur Buprenorphine Scrn Ur Oxycodone Screen Urine Methadone Screen Urine Fentanyl Screen Ur Barbiturates Screen Ur Phencyclidine Scrn Ur Amphetamines Screen U Benzodiazepines Scrn Urine Cocaine Screen U Marijuana (THC) Screen Ethyl Alcohol < 10 01/02/25 01/02/25 01/02/25 09:12 09:58 11:46 MCV MCH MCHC RDW Plt Count MPV Immature Gran % (Auto) Neut % (Auto) Lymph % (Auto) [place] % (Auto) Eos % (Auto) Baso % (Auto) Lymph # (Auto) [place] # (Auto) Eos # (Auto) Baso # (Auto) Abs Immat Gran (auto) Absolute Neuts (auto) Absolute Nucleated RBC Nucleated RBC % (auto) VBG pH 7.34 VBG pCO2 49 VBG pO2 49 VBG HCO3 26 VBG O2 Saturation 78.0 VBG Base Excess 0.5 Anion Gap Estim Creat Clear Calc Estimated GFR POC Glucose Random Glucose Calcium Magnesium Total Bilirubin AST ALT Alkaline Phosphatase Ammonia 34 Total Creatine Kinase C-Reactive Protein Total Protein Albumin TSH Urine Color Yellow Urine Appearance Clear Urine pH 6.0 Ur Specific [place] >= 1.030 H Urine Protein 30 (1+) H Urine Glucose (UA) Negative Urine Ketones Negative Urine Blood Negative Urine Nitrite Negative Ur Leukocyte Esterase Negative Urine RBC 0-2 Urine WBC 0-5 Ur Squamous Epith Cells 0-2 Calcium Oxalate Crystal Present Urine Bacteria None Seen Hyaline Casts 11-20 Granular Casts Present Urine Opiates Screen Not Detected Ur Buprenorphine Scrn Not Detected Ur Oxycodone Screen Not Detected Urine Methadone Screen Not Detected Urine Fentanyl Screen Not Detected Ur Barbiturates Screen Not Detected Ur Phencyclidine Scrn Not Detected Ur Amphetamines Screen Not Detected U Benzodiazepines Scrn Not Detected Urine Cocaine Screen POSITIVE H U Marijuana (THC) Screen Not Detected Ethyl Alcohol Imaging Radiologist's Impressions: Impressions Head/Neck CTA 01/02/25 05:14 IMPRESSION: 1. No large vessel occlusion, hemodynamically significant stenosis, or aneurysm in the head and neck. 2. Dilatation of the ascending thoracic aorta measuring up to 3.9 cm in diameter. Electronically signed by: Jaylen Chow MD 01/02/2025 08:40 AM EDT RP Chest X-Ray 01/02/25 07:51 IMPRESSION: No acute cardiopulmonary abnormality. Electronically signed by: Jaylen Chow MD 01/02/2025 09:08 AM EDT RP Assessment and Plan (1) Cocaine abuse: Status: Acute (2) Encephalopathy acute: Status: Acute (3) Hypernatremia: Status: Acute Plan Daphne Isidro is a 64 y/o woman presents with: Acute toxic-metabolic encephalopathy secondary to cocaine use. ?Seizures + hypernatremia likely contributing to mental changes. Telemetry. NPO. Neuro checks every 4 hours. Aspiration and fall precautions. Hold Bupropion. Check brain MRI and EEG. Acute exacerbation asthma-COPD. Bronchodilator therapy every 4 hours scheduled and every 2 hours as needed. Solu-Medrol 60 mg IV. Prolonged QT. Recheck ECG. Monitor electrolytes closely and replete as needed. Hold sertraline. Hypokalemia. Hold hydrochlorothiazide. Replete as needed. Continue to monitor. Hypernatremia. Likely due to poor p.o. water intake. Start IV fluids: D5. Continue to monitor sodium level. Acute kidney injury. Likely secondary to poor p.o. intake + hydrochlorothiazide. Start IV fluids. Continue to monitor renal function. Avoid nephrotoxic agents. Hold hydrochlorothiazide. Mood disorder. Sertraline and bupropion on hold due to prolonged QT and ?Seizures, respectively. Code status: Fall DVT prophylaxis: Lovenox Patient will need hospitalization for at least 2 midnights for acute toxic metabolic encephalopathy secondary to cocaine use management; she will need neurological status and vital signs monitoring as well as further investigations: Brain MRI and EEG. Quality Stroke Does the patient have a stroke diagnosis?: No VTE Prior VTE?: No VTE Risk Level:: Medical - moderate - high VTE Device Contraindication: Treatment Not Indicated VTE Drug Contraindication: N/A - Med Ordered
[2025-01-02] MEDS: diazePAM 10 MG/2 ML CARTRIDGE 7.5 MG IVPUSH (15:09)
--- NOTE | 2025-01-02 16:00 | ECG_ITS ---
Test Reason : F/U PROLONGED QT Blood Pressure : */* mmHG Vent. Rate : 69 BPM Atrial Rate : 69 BPM P-R Int : 170 ms QRS Dur : 94 ms QT Int : 440 ms P-R-T Axes : 58 2 -23 degrees QTcB Int : 471 ms Normal sinus rhythm Nonspecific ST abnormality Abnormal ECG When compared with ECG of 02-Jan-2025 05:04, No significant change was found Referred By: Roman Hunter Electronically Signed By: BHARGAV VIDALES
--- NOTE | 2025-01-02 16:01 | PC.NURSE ---
Pt medicated with Valium this AM, with good effect. She awoke during attempt to obtain EKG. Pt became agitated and restless again, trying to get out of bed and pulled out IV. Pt medicated with PRN valium as charted with no change. Hospitalist notified. Pt given an additional 5 mg of Valium with good effect. Pt moved to room 21 to be closer to nurse's station. Pt now resting in bed, VSS. NSR on the monitor. Breathing unlabored. Skin p/w/d. Pt is not in any distress. D5W infusing at 100 mL/hr via 20g RAC. Purewick in place. MRI ordered, but being held at this time pending improvement in presentation. Plan of care on going.
--- NOTE | 2025-01-02 16:29 | PHA.MEDREC ---
Addendum entered by Efraín Bal [facility] 01/02/25 16:54: med rec reviewed Original Note: Pharmacy Consult ? Medication Reconciliation Pharmacy has completed the medication reconciliation. Spoke with pt spouse (Johnson [phone]) and he was able to confirm the pt medications. He thinks the pt took her morning medications yesterday but isn't sure at this time.
[2025-01-02 17:42] LABS: Anion Gap 12 (12-20); Blood Urea Nitrogen 19 mg/dL (9-16); Calcium 9.3 mg/dL (8.4-10.2); Carbon Dioxide 21 mmol/L (22-29); Chloride 115 mmol/L (96-108); Creatinine Clr Calc Pharmacy 47.5; Estimated Glomerular Filt Rate 43; Magnesium 2.3 mg/dL (1.6-2.6); Potassium 3.2 mmol/L (3.3-5.1); Sodium 145 mmol/L (135-145)
[2025-01-02 18:10] LABS: Vitamin B12 251 pg/mL (200-900)
--- NOTE | 2025-01-02 21:45 | PC.NURSE ---
Patient resting with their eyes closed, respiration rate 17, chest wall rising symmetrically without labor or distress. No audible wheezing, nasal flaring or use of accessory muscles noted. Personal belongings are at bedside, call light is in reach. Notified patient to call if any assistance is needed prior to getting out of bed. Plan of care ongoing.
--- NOTE | 2025-01-02 21:48 | PC.NURSE ---
Purwic emptied. Ensured proper placement, draining clear yellow urine.
[2025-01-03] VITALS (8 sets, daily range): BP systolic 113–130; BP diastolic 58–96; PULSE 68–78; RESP 16–25; TEMP 36.4–36.7; O2SAT 96–98; BMI 36.1
--- NOTE | 2025-01-03 | ECG_ITS ---
Test Reason : qtc check Blood Pressure : */* mmHG Vent. Rate : 69 BPM Atrial Rate : 69 BPM P-R Int : 150 ms QRS Dur : 94 ms QT Int : 430 ms P-R-T Axes : 71 0 -19 degrees QTcB Int : 460 ms Normal sinus rhythm Minimal voltage criteria for LVH, may be normal variant ( R in aVL ) Borderline ECG When compared with ECG of 02-Jan-2025 18:25, No significant change was found Referred By: Gaye Arias Electronically Signed By: BHARGAV VIDALES
--- NOTE | 2025-01-03 05:19 | PC.NURSE ---
Patient found to be incontinent of stool. Patient was cleaned up with a total bed change, change purewick, connected back to suction, put absorbent pads under patient. Pt stating during the bed change that she has a headache. Patient is alert and following commands.
--- NOTE | 2025-01-03 06:15 | PC.NURSE ---
Pt c/o headache, blakeer texted inpatient Dr. Stevenson for orders regarding medication for pain.
[2025-01-03 06:46] LABS: Hematocrit 34.0 % (37.0-47.0); Hemoglobin 11.7 g/dl (12.0-16.0); Mean Corpuscular HGB Conc 34.4 g/dl (31.0-35.0); Mean Corpuscular Hemoglobin 31.2 pg (27.0-33.0); Mean Corpuscular Volume 90.7 fL (80.0-98.0); NRBC Abs Auto 0.000 X10*3/uL (0.0-0.012); NRBC Pct Auto 0.0 /100WBC (0.0-0.2); Platelet Count 193 X10*3/uL (160-400); Red Blood Count 3.75 X10*6/uL (4.20-5.50); White Blood Count 9.7 X10*3/uL (4.8-10.8)
[2025-01-03 06:54] LABS: Anion Gap 11 (12-20); Blood Urea Nitrogen 17 mg/dL (9-16); Calcium 9.1 mg/dL (8.4-10.2); Carbon Dioxide 23 mmol/L (22-29); Chloride 114 mmol/L (96-108); Creatinine Clr Calc Pharmacy 51.2; Estimated Glomerular Filt Rate 47; Magnesium 2.1 mg/dL (1.6-2.6); Potassium 3.2 mmol/L (3.3-5.1); Sodium 145 mmol/L (135-145)
[2025-01-03] MEDS: Albuterol/Iprat 2.5/0.5MG 3 ML AMPUL.NEB INHALE ×4 (08:02→19:11)
[2025-01-03] MEDS: Potassium Chloride/H20 10 MEQ/100 ML PIGGYBACK 100 MEQ IV ×2 (09:29→11:54)
[2025-01-03] MEDS: Butalb/Acetamin/Caff 50/325/40 TABLET 1 TAB PO (09:31)
--- NOTE | 2025-01-03 10:22 | PM.NEUROCN ---
History of Present Illness Data of Consult Service Date: 01/03/25 Primary Care Provider: Kari Huffman MD [facility] Reason for consult: Syncope 60 who was brought to hospital after she was found unresponsive. Her initial evaluation revealed no obvious cardiac abnormality, no acute brain abnormality, and tox screen positive for cocaine. Now she was alert and awake in complaining of 10/10 headache. There was no recent seizure-like episode or head trauma. Review of Systems Review of Systems: Complain of headache. [facility] Past Medical History Medical History Asthma Social History Social History Unable to assess alcohol history related to: Unable to respond Patient Tobacco Use Status: Tobacco use Unknown Smoked in Last 30 Days: Yes Use of substances other than those prescribed or required for medical reasons: Unable to respond Advance Directives: No Advance Directives Information Provided: Yes Nutrition Risks: No Nutritional Risk Current occupational status: unemployed Current occupation: Right 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 Meds Allergies Allergy/AdvReac Type Severity Reaction Status Date / Time Penicillins (PCN) Allergy Mild ITCHY Verified 01/02/25 04:57 penicillin V Allergy Unknown hives Verified 01/02/25 04:57 Sulfa (Sulfonamide Allergy Unknown swelling/ Verified 01/02/25 04:57 Antibiotics) hives sulfamethoxazole (From Allergy Unknown SOB, Verified 01/02/25 04:57 BACTRIM) diffuse rash trimethoprim (From BACTRIM) Allergy Unknown SOB, Verified 01/02/25 04:57 diffuse rash penicillin Allergy Unknown rash, itchy Uncoded 01/02/25 04:57 bactrim AdvReac Unknown asthma Uncoded 01/02/25 04:57 Active Medications: Current Medications Acetaminophen (Acetaminophen 325 Mg Tablet) 650 mg PO Q4H PRN PRN Reason: Pain, Mild 1-3,fever,headache Last Admin: 01/03/25 07:11 Dose: 650 mg Acetaminophen/Butalbital/Caffeine (Butalb/Acetamin/Caff 50/325/40 Tablet) 1 tab PO Q4H PRN PRN Reason: Headache Last Admin: 01/03/25 09:31 Dose: 1 tab Albuterol Sulfate (Albuterol Sulfate (0.083%) 2.5 Mg/3 Ml Vial.Neb) 2.5 mg INHALE Q2H PRN PRN Reason: Shortness of Breath/Wheezing Albuterol/Ipratropium (Albuterol/Iprat 2.5/0.5mg 3 Ml Ampul.Neb) 3 ml INHALE RQ4H WHILE AWAKE [facility] Last Admin: 01/03/25 08:02 Dose: 3 ml Diazepam (Diazepam 2 Mg Tablet) 2 mg PO TID PRN PRN Reason: Anxiety Last Admin: 01/03/25 09:31 Dose: 2 mg Enoxaparin Sodium (Enoxaparin Sodium 40 Mg/0.4 Ml Syringe) 40 mg SUBCUT Q24H [facility] Last Admin: 01/03/25 09:32 Dose: 40 mg Dextrose (D5w) 1,000 mls @ 100 mls/hr IVCONT .Q10H [facility] Last Admin: 01/02/25 23:20 Dose: 100 mls/hr Methylprednisolone Sodium Succinate (Methylprednisolone Sod Succ 40 Mg/Ml Vial) 40 mg IVPUSH Q24H [facility] Last Admin: 01/03/25 09:26 Dose: 40 mg Sodium Chloride (0.9 % Sodium Chloride Flush 3 Ml Syringe) 3 ml IVFLUSH QSHIFT [facility] Last Admin: 01/03/25 07:42 Dose: Not Given Home Medications ?Medication ?Instructions ?Recorded ?Confirmed ?Last Taken ?Type albuterol sulfate 2.5 mg/3 mL 2.5 mg inhalation BID PRN 01/02/25 01/02/25 Unknown History (0.083 %) solution for nebulization Shortness Of Breath Or Wheezing albuterol sulfate 90 mcg/actuation 2 puff inhalation QID PRN asthma 01/02/25 01/02/25 Unknown History aerosol inhaler (Ventolin HFA) bupropion HCl 150 mg 24 hr tablet, 150 mg PO DAILY 01/02/25 01/02/25 1 Day Ago History extended release ~01/01/25 losartan 100 1 tab PO DAILY 01/02/25 01/02/25 1 Day Ago History mg-hydrochlorothiazide 25 mg tablet ~01/01/25 sertraline 100 mg tablet 100 mg PO DAILY 01/02/25 01/02/25 1 Day Ago History ~01/01/25 Physical Exam Vital Signs: Vital Signs: Last Vital Signs Temp 98.2 F 01/02/25 23:51 Pulse 71 01/03/25 08:04 Resp 25 H 01/03/25 08:04 BP 126/69 01/03/25 04:55 Pulse Ox 96 01/03/25 04:55 O2 Del Method Room Air 01/03/25 04:55 O2 Flow Rate 2 01/02/25 10:17 BMI result Body Mass Index 39.7 Neuro: Other: She is alert and awake with normal spontaneity of speech fluency comprehension and affect. She does not seem to be in any distress. Neck is supple. Extraocular muscles are intact. Visual elliott are full. Face is symmetrical. Teeth are missing. There was no obvious focal arm or leg weakness. Plantars are flexor. Deep tendon reflexes are trace to absent. Speech is okay with pendulous mouth. Results Labs 01/03/25 06:19 01/03/25 06:19 Labs: Short CBC 01/03/25 Range/Units 06:19 WBC 9.7 (4.8-10.8) X10*3/uL Hgb 11.7 L (12.0-16.0) g/dl Hct 34.0 L (37.0-47.0) % Plt Count 193 (160-400) X10*3/uL BMP 01/02/25 01/03/25 17:17 06:19 Sodium 145 145 Potassium 3.2 L 3.2 L Chloride 115 H 114 H Carbon Dioxide 21 L 23 BUN 19 H 17 H Creatinine 1.26 1.17 Calcium 9.3 9.1 Cardiac Enzymes 01/02/25 01/03/25 Range/Units 17:17 06:19 Total Creatine Kinase 163 H 281 H (26-140) U/L Head CT revealed mild generalized atrophy. CTA did not reveal any vascular stenosis. Assessment and Plan (1) Encephalopathy acute: Status: Acute Probably cocaine induced encephalopathy and unresponsiveness. She complains of 10/10 headache but does not seem to be in any significant distress. I recommend conservative management with avoidance of habit-forming medicines. Naproxen 500 mg as needed or ibuprofen 400 mg as needed can be used for headache. Otherwise mainstay of management is staying away from cocaine and habit-forming drugs. If similar episode recurs without use of cocaine, EEG evaluation might be needed to rule out seizure disorder. Irrespective of the cause, she should follow [facility] regulation and not drive at least for 6 months if this type of symptoms do not recur. Procedures Date of Service Date of Service: 01/03/25
--- NOTE | 2025-01-03 10:53 | MHC.CM.PN ---
CM attempted to meet with Patient at bedside, in the ED, but Patient asked CM to call her .Patient lives in an apartment with her and required no services nor DME ORDER PICKER. Home/self care is the goal and CM has initiated and will follow for dc planning. PCP is Dr. Kari Huffman and will transport to home at time of dc.
--- NOTE | 2025-01-03 12:02 | PC.NURSE ---
Pt A&O X4 was anxious earlier and provider was contacted for PO valium. Pt received with good effect for anxiety. Pt still c/o BENZ but resting with eyes closed. VSS Pt received IV K+ late due to difficulty with iV access then pt was in MRI. Second bag infusing now. Pt in NAD at this time.
--- NOTE | 2025-01-03 13:12 | P.PNIM_ITS ---
Subjective Subjective Date of Service: 01/03/25 Interval History: c/o BENZ denies cocaine intake Review of Systems Review of Systems: Yes all other systems are reviewed and are negative Physical Exam 2 Vital Signs: Vital Signs: Last Vital Signs Temp 98.1 F 01/03/25 11:50 Pulse 72 01/03/25 11:50 Resp 25 H 01/03/25 11:50 BP 113/96 H 01/03/25 11:50 Pulse Ox 98 01/03/25 11:50 O2 Del Method Room Air 01/03/25 11:50 O2 Flow Rate 2 01/02/25 10:17 BMI result Body Mass Index 39.7 Gen: in no acute distress HEENT: sclera anicteric, moist mucus membranes Neck: supple Lungs: clear to auscultation bilaterally Heart: regular rate and rhythm, no murmurs Abd: soft, non-tender, non-distended Ext: no edema Skin: warm/well-perfused Neuro: alert and oriented x3, no focal findings Psych: restricted affect Objective Data Active Medications Acetaminophen (Acetaminophen 325 Mg Tablet) 650 mg PO Q4H PRN PRN Reason: Pain, Mild 1-3,fever,headache Last Admin: 01/03/25 07:11 Dose: 650 mg Documented By: DIVINE Acetaminophen/Butalbital/Caffeine (Butalb/Acetamin/Caff 50/325/40 Tablet) 1 tab PO Q4H PRN PRN Reason: Headache Last Admin: 01/03/25 09:31 Dose: 1 tab Documented By: MERLY Albuterol Sulfate (Albuterol Sulfate (0.083%) 2.5 Mg/3 Ml Vial.Neb) 2.5 mg INHALE Q2H PRN PRN Reason: Shortness of Breath/Wheezing Albuterol/Ipratropium (Albuterol/Iprat 2.5/0.5mg 3 Ml Ampul.Neb) 3 ml INHALE RQ4H WHILE AWAKE [facility] Last Admin: 01/03/25 11:39 Dose: 3 ml Documented By: JEFF Diazepam (Diazepam 2 Mg Tablet) 2 mg PO TID PRN PRN Reason: Anxiety Last Admin: 01/03/25 09:31 Dose: 2 mg Documented By: MERLY Enoxaparin Sodium (Enoxaparin Sodium 40 Mg/0.4 Ml Syringe) 40 mg SUBCUT Q24H [facility] Last Admin: 01/03/25 09:32 Dose: 40 mg Documented By: MERLY Dextrose (D5w) 1,000 mls @ 100 mls/hr IVCONT .Q10H [facility] Last Admin: 01/03/25 11:58 Dose: 100 mls/hr Documented By: MERLY Methylprednisolone Sodium Succinate (Methylprednisolone Sod Succ 40 Mg/Ml Vial) 40 mg IVPUSH Q24H [facility] Last Admin: 01/03/25 09:26 Dose: 40 mg Documented By: MERLY Sodium Chloride (0.9 % Sodium Chloride Flush 3 Ml Syringe) 3 ml IVFLUSH QSHIFT [facility] Last Admin: 01/03/25 07:42 Dose: Not Given Documented By: MERLY Non-Admin Reason: IV Running Labs 01/03/25 06:19 01/03/25 06:19 Labs: Laboratory Results - last 24 hr 01/02/25 01/03/25 17:17 06:19 MCV 90.7 MCH 31.2 MCHC 34.4 RDW 13.9 Plt Count 193 MPV 11.2 Absolute Nucleated RBC 0.000 Nucleated RBC % (auto) 0.0 Anion Gap 12 11 L Estim Creat Clear Calc 47.5 51.2 Estimated GFR 43 47 Random Glucose 132 H 112 Lactic Acid 1.1 Calcium 9.3 9.1 Magnesium 2.3 2.1 Total Creatine Kinase 163 H 281 H Vitamin B12 251 ITS Impressions Head/Neck CTA 01/02/25 05:14 IMPRESSION: 1. No large vessel occlusion, hemodynamically significant stenosis, or aneurysm in the head and neck. 2. Dilatation of the ascending thoracic aorta measuring up to 3.9 cm in diameter. Electronically signed by: Jaylen Chow MD 01/02/2025 08:40 AM EDT RP Chest X-Ray 01/02/25 07:51 IMPRESSION: No acute cardiopulmonary abnormality. Electronically signed by: Jaylen Chow MD 01/02/2025 09:08 AM EDT RP Brain MRI 01/03/25 10:55 IMPRESSION: No acute intracranial abnormality. No evidence of an acute infarct. Electronically signed by: Jaylen Chow MD 01/03/2025 12:20 PM EDT RP Assessment and Plan (1) Cocaine abuse: Status: Acute Plan d2, 64yo F with asthma, HTN, mood disorder found on the ground by her , somnolent but reporting severe BENZ + GI upset, admitted for encephalopathy likely due to cocaine abuse acute toxic encephalopathy - likely due to cocaine, EEG pending, Neuro consulted, no driving x6mo cocaine abuse - Addiction Medicine consult, HBV/HCV/HIV screening acute asthma-COPD excerbation - continue methylprednisolone, standing/prn nebs IRIS, prerenal - resolving with fluid repletion; holding losartan-HCTZ hypoK - replete, recheck tomorrow hyperNa, mild - free water repleted prologned QTc - resolved, repeat QTc 469 ms HTN - holding losartan-HCTZ mood disorder - resume sertraline + bupropion VTE ppx - enoxaparin dispo - TBD In my clinical judgment, the patient requires continued inpatient hospitalization for the following reasons: IRIS, encephalopathy Total time managing care of this patient today: 35 minutes. Quality Stroke Does the patient have a stroke diagnosis?: No VTE Prior VTE?: No VTE Risk Level:: Medical - moderate - high VTE Device Contraindication: Treatment Not Indicated VTE Drug Contraindication: N/A - Med Ordered
[2025-01-03] MEDS: 0.9 % Sodium Chloride Flush 3 ML SYRINGE IVFLUSH ×2 (18:02→22:53)
[2025-01-03] MEDS: Nicotine 14 MG PATCH.TD24 TRANSDERMA (18:02)
[2025-01-04] VITALS (9 sets, daily range): BP systolic 115–145; BP diastolic 58–85; PULSE 55–91; RESP 16–20; TEMP 36.6–36.8; O2SAT 94–100
[2025-01-04 07:09] LABS: Hematocrit 35.1 % (37.0-47.0); Hemoglobin 11.6 g/dl (12.0-16.0); Mean Corpuscular HGB Conc 33.0 g/dl (31.0-35.0); Mean Corpuscular Hemoglobin 30.9 pg (27.0-33.0); Mean Corpuscular Volume 93.4 fL (80.0-98.0); NRBC Abs Auto 0.000 X10*3/uL (0.0-0.012); NRBC Pct Auto 0.0 /100WBC (0.0-0.2); Platelet Count 181 X10*3/uL (160-400); Red Blood Count 3.76 X10*6/uL (4.20-5.50); White Blood Count 8.5 X10*3/uL (4.8-10.8)
[2025-01-04] MEDS: Albuterol/Iprat 2.5/0.5MG 3 ML AMPUL.NEB INHALE ×3 (07:34→19:22)
[2025-01-04 07:38] LABS: Alanine Aminotransferase 10 U/L (0-31); Albumin Level 3.8 g/dL (3.5-5.0); Alkaline Phosphatase 53 U/L (39-117); Anion Gap 12 (12-20); Aspartate Amino Transferase 21 U/L (5-31); Blood Urea Nitrogen 17 mg/dL (9-16); Calcium 8.8 mg/dL (8.4-10.2); Carbon Dioxide 24 mmol/L (22-29); Chloride 110 mmol/L (96-108); Creatinine Clr Calc Pharmacy 49.4; Estimated Glomerular Filt Rate 48; Magnesium 2.1 mg/dL (1.6-2.6); Sodium 143 mmol/L (135-145); Total Protein 6.2 g/dL (6.5-8.0)
[2025-01-04 07:42] LABS: Potassium 2.8 mmol/L (3.3-5.1)
[2025-01-04 07:53] LABS: HBS Num1 1.14 mIU/mL (0-7.99); HBc Num1 0.06 S/CO (0.00-0.79); HBsAGNum1 0.36 S/CO (0.00-0.99); HIV Num 1 0.04 S/CO (0.00-0.99); Hepatitis B Surface Antigen Negative (Negative); ~HepC Num1 0.13 S/CO (0.00-0.79); ~Hepatitis B Surface Antibody NONREACTIVE (Nonreactive); ~Hepatitis C Antibody Nonreactive (Nonreactive)
[2025-01-04] MEDS: Nicotine 14 MG PATCH.TD24 TRANSDERMA (09:08)
[2025-01-04] MEDS: Potassium Chloride ER 20 MEQ TAB.ER.PRT 40 MEQ PO (09:10)
[2025-01-04] MEDS: Potassium Chloride/H20 10 MEQ/100 ML PIGGYBACK 100 MEQ IV ×4 (09:11→16:47)
[2025-01-04] MEDS: buPROPion HCl XL 150 MG TAB.ER.24H PO (09:11)
[2025-01-04] MEDS: 0.9 % Sodium Chloride Flush 3 ML SYRINGE IVFLUSH ×2 (09:11→22:41)
--- NOTE | 2025-01-04 10:48 | HO.ADDICT_ITS ---
History of Present Illness Date of Service: 01/04/2025 Chief Complaint: seizure Reason for Consult: cocaine use Sources of Information: patient interviewed and chart reviewed HPI Narrative: Patient is a 64 year old Taiwanese speaking with medical history that includes asthma and HTN. Presented to [facility] after being found on the ground at home by her . In the ED she presented as somnolent. Admitted with encephalopathy and hypernatremia (Na 146). Consult requested as UDS + cocaine. Patient seen in room 444. She is awake, alert, pleasant and engaged in interview. C/O headache that has been persistent since admission. Inquired about substance use and patient emphatically denies any history of substance use. She is aware of +UDS, and again states that she does not use any substances. Medical Evaluation Reviewed: Yes Review of Systems Constitutional: Reports as per HPI and Reports no additional constitutional complaints Diagnostics Vital Signs (24Hr): Vital Signs - 24 hr 01/03/25 11:40 01/03/25 11:50 01/03/25 16:00 Temperature 98.1 F 97.6 F Pulse Rate 69 72 69 Respiratory Rate 22 H 25 H 16 Blood Pressure 113/96 H 130/81 Pulse Oximetry 98 98 Oxygen Delivery Method Room Air Room Air 01/03/25 17:02 01/03/25 19:13 01/03/25 19:17 Temperature 98.1 F Pulse Rate 69 71 68 Respiratory Rate 16 16 20 Blood Pressure 117/58 L Pulse Oximetry 98 Oxygen Delivery Method Room Air 01/04/25 00:00 01/04/25 04:00 01/04/25 07:37 Temperature 98.2 F 98.1 F Pulse Rate 69 76 55 Respiratory Rate 20 20 16 Blood Pressure 116/64 115/74 Pulse Oximetry 98 99 Oxygen Delivery Method Room Air Room Air 01/04/25 07:58 Temperature 97.8 F Pulse Rate 64 Respiratory Rate 18 Blood Pressure 145/83 H Pulse Oximetry 98 Oxygen Delivery Method Room Air BMI result Body Mass Index 36.1 Labs 01/04/25 06:32 01/04/25 06:32 Labs: Laboratory Results - last 48 hr 01/02/25 01/02/25 01/02/25 09:12 11:46 17:17 WBC RBC Hgb Hct MCV MCH MCHC RDW Plt Count MPV Absolute Nucleated RBC Nucleated RBC % (auto) VBG pH 7.34 VBG pCO2 49 VBG pO2 49 VBG HCO3 26 VBG O2 Saturation 78.0 VBG Base Excess 0.5 Sodium 145 Potassium 3.2 L Chloride 115 H Carbon Dioxide 21 L Anion Gap 12 BUN 19 H Creatinine 1.26 Estim Creat Clear Calc 47.5 Estimated GFR 43 Random Glucose 132 H Lactic Acid 1.1 Calcium 9.3 Magnesium 2.3 Total Bilirubin AST ALT Alkaline Phosphatase Ammonia 34 Total Creatine Kinase 163 H Total Protein Albumin Vitamin B12 251 Hep Bs Antigen Hep Bs Antibody Hep B Core Total Ab Hepatitis C Ab (EIA) HIV 1&2 Ab/P24 Ag 4thGn 01/03/25 01/04/25 06:19 06:32 WBC 9.7 8.5 RBC 3.75 L 3.76 L Hgb 11.7 L 11.6 L Hct 34.0 L 35.1 L MCV 90.7 93.4 MCH 31.2 30.9 MCHC 34.4 33.0 RDW 13.9 13.8 Plt Count 193 181 MPV 11.2 10.7 Absolute Nucleated RBC 0.000 0.000 Nucleated RBC % (auto) 0.0 0.0 VBG pH VBG pCO2 VBG pO2 VBG HCO3 VBG O2 Saturation VBG Base Excess Sodium 145 143 Potassium 3.2 L 2.8 L* Chloride 114 H 110 H Carbon Dioxide 23 24 Anion Gap 11 L 12 BUN 17 H 17 H Creatinine 1.17 1.15 Estim Creat Clear Calc 51.2 49.4 Estimated GFR 47 48 Random Glucose 112 87 Lactic Acid Calcium 9.1 8.8 Magnesium 2.1 2.1 Total Bilirubin 0.3 AST 21 ALT 10 Alkaline Phosphatase 53 Ammonia Total Creatine Kinase 281 H Total Protein 6.2 L Albumin 3.8 Vitamin B12 Hep Bs Antigen Negative Hep Bs Antibody NONREACTIVE Hep B Core Total Ab Nonreactive Hepatitis C Ab (EIA) Nonreactive HIV 1&2 Ab/P24 Ag 4thGn Nonreactive Imaging Radiology Impressions: ITS Impressions Head/Neck CTA 01/02/25 05:14 IMPRESSION: 1. No large vessel occlusion, hemodynamically significant stenosis, or aneurysm in the head and neck. 2. Dilatation of the ascending thoracic aorta measuring up to 3.9 cm in diameter. Electronically signed by: Jaylen Chow MD 01/02/2025 08:40 AM EDT Chest X-Ray 01/02/25 07:51 IMPRESSION: No acute cardiopulmonary abnormality. Electronically signed by: Jaylen Chow MD 01/02/2025 09:08 AM EDT RP Brain MRI 01/03/25 10:55 IMPRESSION: No acute intracranial abnormality. No evidence of an acute infarct. Electronically signed by: Jaylen Chow MD 01/03/2025 12:20 PM EDT RP Mental Status Exam Mental Status Exam Patient Appearance: Appropriate Patient Orientation: Person, Place, Time and Situation Level of Consciousness: Awake, Appropriate and Alert Patient Behavior: Appropriate Affect Description: Calm Speech Pattern: Clear Thought Process: Intact Thought Content: positive for Intact Judgement: Good Medications Medications Current Medications Acetaminophen (Acetaminophen 325 Mg Tablet) 650 mg PO Q4H PRN PRN Reason: Pain, Mild 1-3,fever,headache Last Admin: 01/03/25 07:11 Dose: 650 mg Albuterol Sulfate (Albuterol Sulfate (0.083%) 2.5 Mg/3 Ml Vial.Neb) 2.5 mg INHALE Q2H PRN PRN Reason: Shortness of Breath/Wheezing Albuterol/Ipratropium (Albuterol/Iprat 2.5/0.5mg 3 Ml Ampul.Neb) 3 ml INHALE RQ4H WHILE AWAKE [facility] Last Admin: 01/04/25 07:34 Dose: 3 ml Bupropion HCl (Bupropion Hcl Xl 150 Mg Tab.Er.24h) 150 mg PO DAILY [facility] Last Admin: 01/04/25 09:11 Dose: 150 mg Diazepam (Diazepam 2 Mg Tablet) 2 mg PO TID PRN PRN Reason: Anxiety Last Admin: 01/04/25 02:57 Dose: 2 mg Enoxaparin Sodium (Enoxaparin Sodium 40 Mg/0.4 Ml Syringe) 40 mg SUBCUT Q24H [facility] Last Admin: 01/04/25 09:11 Dose: 40 mg Dextrose (D5w) 1,000 mls @ 100 mls/hr IVCONT .Q10H [facility] Last Admin: 01/04/25 02:54 Dose: 100 mls/hr Potassium Chloride (Potassium Chloride/H20) 10 meq in 100 mls @ 100 mls/hr IV Q1H [facility] Stop: 01/04/25 11:59 Last Admin: 01/04/25 09:11 Dose: 100 mls/hr Ibuprofen (Ibuprofen 400 Mg Tablet) 400 mg PO Q6H PRN PRN Reason: Headache Last Admin: 01/04/25 02:57 Dose: 400 mg Methylprednisolone Sodium Succinate (Methylprednisolone Sod Succ 40 Mg/Ml Vial) 40 mg IVPUSH Q24H [facility] Last Admin: 01/04/25 09:11 Dose: 40 mg Nicotine (Nicotine 14 Mg Patch.Td24) 14 mg TRANSDERMA DAILY [facility] Last Admin: 01/04/25 09:08 Dose: 14 mg Nicotine Polacrilex (Nicotine Polacrilex 2 Mg Gum) 2 mg BUCCAL Q1H PRN PRN Reason: Nicotine Cravings Oxycodone HCl (Oxycodone Hcl Immed Release 5 Mg Tablet) 5 mg PO Q4H PRN PRN Reason: Pain, Severe (Pain Scale 7-10) Sertraline HCl (Sertraline Hcl 100 Mg Tablet) 100 mg PO DAILY [facility] Last Admin: 01/04/25 09:11 Dose: 100 mg Sodium Chloride (0.9 % Sodium Chloride Flush 3 Ml Syringe) 3 ml IVFLUSH QSHIFT [facility] Last Admin: 01/04/25 09:11 Dose: 3 ml Allergies Allergies Allergy/AdvReac Type Severity Reaction Status Date / Time Penicillins (PCN) Allergy Mild ITCHY Verified 01/02/25 04:57 penicillin V Allergy Unknown hives Verified 01/02/25 04:57 Sulfa (Sulfonamide Allergy Unknown swelling/ Verified 01/02/25 04:57 Antibiotics) hives sulfamethoxazole (From Allergy Unknown SOB, Verified 01/02/25 04:57 BACTRIM) diffuse rash trimethoprim (From BACTRIM) Allergy Unknown SOB, Verified 01/02/25 04:57 diffuse rash penicillin Allergy Unknown rash, itchy Uncoded 01/02/25 04:57 bactrim AdvReac Unknown asthma Uncoded 01/02/25 04:57 Assessment & Plan Assessment & Plan (1) Hypernatremia: Status: Acute Code(s): E87.0 - Hyperosmolality and hypernatremia Assessment and Plan: * UDS sent for confirmation of cocaine via GCMS to ensure appropriate clinical documentation related to substance use * declines any intervention or discussion related to substance use. * no follow up indicated at this time from [facility] unless requested by patient Total time managing care of this patient today __30__ minutes. PMFSH Past Medical History Medical History Asthma Social History Social History Household Members: Spouse Housing: Apartment Do you presently have visiting nurse or other home services: No Unable to assess alcohol history related to: Unable to respond Patient Tobacco Use Status: Current everyday Tobacco user Tobacco use type: Cigarette Cigarettes Per Day: 3 Second Hand Smoke Exposure: No service: No Current occupational status: unemployed Current occupation: Right 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
--- NOTE | 2025-01-04 13:00 | P.PNIM_ITS ---
Subjective Subjective Date of Service: 01/04/25 Interval History: c/o frontal headache c/o bilateral kidney pain, renal colic, dysuria denies cocaine intake Review of Systems Review of Systems: Yes all other systems are reviewed and are negative Physical Exam 2 Vital Signs: Vital Signs: Last Vital Signs Temp 97.8 F 01/04/25 07:58 Pulse 64 01/04/25 07:58 Resp 18 01/04/25 07:58 BP 145/83 H 01/04/25 07:58 Pulse Ox 98 01/04/25 07:58 O2 Del Method Room Air 01/04/25 07:58 O2 Flow Rate 2 01/02/25 10:17 BMI result Body Mass Index 36.1 Gen: in no acute distress HEENT: sclera anicteric, moist mucus membranes Neck: supple Lungs: clear to auscultation bilaterally Heart: regular rate and rhythm, no murmurs Abd: soft, non-tender, non-distended Ext: no edema Skin: warm/well-perfused Neuro: alert and oriented x3, no focal findings Psych: restricted affect Objective Data Active Medications Acetaminophen (Acetaminophen 325 Mg Tablet) 650 mg PO Q4H PRN PRN Reason: Pain, Mild 1-3,fever,headache Last Admin: 01/03/25 07:11 Dose: 650 mg Documented By: DIVINE Albuterol Sulfate (Albuterol Sulfate (0.083%) 2.5 Mg/3 Ml Vial.Neb) 2.5 mg INHALE Q2H PRN PRN Reason: Shortness of Breath/Wheezing Albuterol/Ipratropium (Albuterol/Iprat 2.5/0.5mg 3 Ml Ampul.Neb) 3 ml INHALE RQ4H WHILE AWAKE [facility] Last Admin: 01/04/25 11:11 Dose: Not Given Documented By: CHRISTEL Non-Admin Reason: Not In Room Bupropion HCl (Bupropion Hcl Xl 150 Mg Tab.Er.24h) 150 mg PO DAILY [facility] Last Admin: 01/04/25 09:11 Dose: 150 mg Documented By: ALTHEA Diazepam (Diazepam 2 Mg Tablet) 2 mg PO TID PRN PRN Reason: Anxiety Last Admin: 01/04/25 02:57 Dose: 2 mg Documented By: SID Enoxaparin Sodium (Enoxaparin Sodium 40 Mg/0.4 Ml Syringe) 40 mg SUBCUT Q24H [facility] Last Admin: 01/04/25 09:11 Dose: 40 mg Documented By: ALTHEA Ibuprofen (Ibuprofen 400 Mg Tablet) 400 mg PO Q6H PRN PRN Reason: Headache Last Admin: 01/04/25 02:57 Dose: 400 mg Documented By: SID Methylprednisolone Sodium Succinate (Methylprednisolone Sod Succ 40 Mg/Ml Vial) 40 mg IVPUSH Q24H [facility] Last Admin: 01/04/25 09:11 Dose: 40 mg Documented By: ALTHEA Nicotine (Nicotine 14 Mg Patch.Td24) 14 mg TRANSDERMA DAILY [facility] Last Admin: 01/04/25 09:08 Dose: 14 mg Documented By: ALTHEA Nicotine Polacrilex (Nicotine Polacrilex 2 Mg Gum) 2 mg BUCCAL Q1H PRN PRN Reason: Nicotine Cravings Oxycodone HCl (Oxycodone Hcl Immed Release 5 Mg Tablet) 5 mg PO Q4H PRN PRN Reason: Pain, Severe (Pain Scale 7-10) Sertraline HCl (Sertraline Hcl 100 Mg Tablet) 100 mg PO DAILY [facility] Last Admin: 01/04/25 09:11 Dose: 100 mg Documented By: ALTHEA Sodium Chloride (0.9 % Sodium Chloride Flush 3 Ml Syringe) 3 ml IVFLUSH QSHIFT [facility] Last Admin: 01/04/25 09:11 Dose: 3 ml Documented By: ALTHEA Labs 01/04/25 06:32 01/04/25 06:32 Labs: Laboratory Results - last 24 hr 01/04/25 06:32 MCV 93.4 MCH 30.9 MCHC 33.0 RDW 13.8 Plt Count 181 MPV 10.7 Absolute Nucleated RBC 0.000 Nucleated RBC % (auto) 0.0 Anion Gap 12 Estim Creat Clear Calc 49.4 Estimated GFR 48 Random Glucose 87 Calcium 8.8 Magnesium 2.1 Total Bilirubin 0.3 AST 21 ALT 10 Alkaline Phosphatase 53 Total Protein 6.2 L Albumin 3.8 Hep Bs Antigen Negative Hep Bs Antibody NONREACTIVE Hep B Core Total Ab Nonreactive Hepatitis C Ab (EIA) Nonreactive HIV 1&2 Ab/P24 Ag 4thGn Nonreactive Assessment and Plan (1) Cocaine abuse: Status: Acute Plan d3, 64yo F with asthma, HTN, mood disorder found on the ground by her , somnolent but reporting severe BENZ + GI upset, admitted for encephalopathy likely due to cocaine abuse acute toxic encephalopathy - likely due to cocaine, EEG negative, Neuro consulted, no driving x6mo cocaine abuse - Addiction Medicine consulted, HBV/HCV/HIV screening negative, pt denies intake, GC/MS sent out for confirmation acute asthma-COPD excerbation - change methylprednisolone to prednisone, standing/prn nebs hypoK - replete IV/PO; recheck level tomorrow IRIS, prerenal - resolving with fluid repletion; holding losartan-HCTZ hyperNa, mild - resolved prologned QTc - resolved, repeat QTc 469 ms HTN - holding losartan-HCTZ mood disorder - resumed sertraline + bupropion VTE ppx - enoxaparin dispo - eventual home In my clinical judgment, the patient requires continued inpatient hospitalization for the following reasons: hypoK Total time managing care of this patient today: 35 minutes. Quality Stroke Does the patient have a stroke diagnosis?: No VTE Prior VTE?: No VTE Risk Level:: Medical - moderate - high VTE Device Contraindication: Treatment Not Indicated VTE Drug Contraindication: N/A - Med Ordered
[2025-01-04] MEDS: oxyCODONE HCl Immed Release 5 MG TABLET PO ×3 (13:14→22:39)
[2025-01-04 14:25] LABS: Appearance Urine Clear; Glucose Urine UA Negative (Negative); PH 7.0 (5.0-9.0); Specific Gravity - Urine <= 1.005 (1.005-1.025)
[2025-01-05] VITALS (14 sets, daily range): BP systolic 122–146; BP diastolic 59–88; PULSE 65–85; RESP 16–18; TEMP 36–37.1; O2SAT 97–99
[2025-01-05] MEDS: Albuterol/Iprat 2.5/0.5MG 3 ML AMPUL.NEB INHALE ×4 (07:31→20:12)
[2025-01-05 08:11] LABS: Anion Gap 11 (12-20); Blood Urea Nitrogen 16 mg/dL (9-16); Calcium 8.5 mg/dL (8.4-10.2); Carbon Dioxide 22 mmol/L (22-29); Chloride 116 mmol/L (96-108); Creatinine Clr Calc Pharmacy 56.8; Estimated Glomerular Filt Rate 56; Magnesium 2.2 mg/dL (1.6-2.6); Potassium 3.3 mmol/L (3.3-5.1); Sodium 146 mmol/L (135-145)
[2025-01-05] MEDS: buPROPion HCl XL 150 MG TAB.ER.24H PO (08:31)
[2025-01-05] MEDS: oxyCODONE HCl Immed Release 5 MG TABLET PO ×2 (08:31→15:36)
[2025-01-05] MEDS: 0.9 % Sodium Chloride Flush 3 ML SYRINGE IVFLUSH ×2 (08:32→15:37)
[2025-01-05] MEDS: Nicotine 14 MG PATCH.TD24 TRANSDERMA (08:33)
[2025-01-05] MEDS: Butalb/Acetamin/Caff 50/325/40 TABLET 1 TAB PO (09:36)
--- NOTE | 2025-01-05 11:36 | MHC.CM.PN ---
PT is recommending STR; CM will continue to follow.
--- NOTE | 2025-01-05 12:19 | P.PNIM_ITS ---
Subjective Subjective Date of Service: 01/05/25 Interval History: c/o dizziness; breathing improved headache + kidney pain resolved Review of Systems Review of Systems: Yes all other systems are reviewed and are negative Physical Exam 2 Vital Signs: Vital Signs: Last Vital Signs Temp 97.6 F 01/05/25 11:41 Pulse 75 01/05/25 11:41 Resp 18 01/05/25 11:41 BP 142/76 H 01/05/25 11:41 Pulse Ox 99 01/05/25 11:41 O2 Del Method Aerosol Mask 01/05/25 11:41 O2 Flow Rate 2 01/02/25 10:17 BMI result Body Mass Index 36.1 Gen: in no acute distress HEENT: sclera anicteric, moist mucus membranes Neck: supple Lungs: soft exp wheezes Heart: regular rate and rhythm, no murmurs Abd: soft, non-tender, non-distended Ext: no edema Skin: warm/well-perfused Neuro: alert and oriented x3, no focal findings Psych: restricted affect Objective Data Active Medications Acetaminophen (Acetaminophen 325 Mg Tablet) 650 mg PO Q4H PRN PRN Reason: Pain, Mild 1-3,fever,headache Last Admin: 01/03/25 07:11 Dose: 650 mg Documented By: DIVINE Albuterol Sulfate (Albuterol Sulfate (0.083%) 2.5 Mg/3 Ml Vial.Neb) 2.5 mg INHALE Q2H PRN PRN Reason: Shortness of Breath/Wheezing Albuterol/Ipratropium (Albuterol/Iprat 2.5/0.5mg 3 Ml Ampul.Neb) 3 ml INHALE RQ4H WHILE AWAKE [facility] Last Admin: 01/05/25 11:22 Dose: 3 ml Documented By: TON Bupropion HCl (Bupropion Hcl Xl 150 Mg Tab.Er.24h) 150 mg PO DAILY [facility] Last Admin: 01/05/25 08:31 Dose: 150 mg Documented By: ALTHEA Diazepam (Diazepam 2 Mg Tablet) 2 mg PO TID PRN PRN Reason: Anxiety Last Admin: 01/04/25 02:57 Dose: 2 mg Documented By: SID Enoxaparin Sodium (Enoxaparin Sodium 40 Mg/0.4 Ml Syringe) 40 mg SUBCUT Q24H [facility] Last Admin: 01/05/25 08:32 Dose: 40 mg Documented By: ALTHEA Ibuprofen (Ibuprofen 400 Mg Tablet) 400 mg PO Q6H PRN PRN Reason: Headache Last Admin: 01/04/25 02:57 Dose: 400 mg Documented By: SID Nicotine (Nicotine 14 Mg Patch.Td24) 14 mg TRANSDERMA DAILY [facility] Last Admin: 01/05/25 08:33 Dose: 14 mg Documented By: ALTHEA Nicotine Polacrilex (Nicotine Polacrilex 2 Mg Gum) 2 mg BUCCAL Q1H PRN PRN Reason: Nicotine Cravings Oxycodone HCl (Oxycodone Hcl Immed Release 5 Mg Tablet) 5 mg PO Q4H PRN PRN Reason: Pain, Severe (Pain Scale 7-10) Last Admin: 01/05/25 08:31 Dose: 5 mg Documented By: ALTHEA Prednisone (Prednisone 20 Mg Tablet) 40 mg PO DAILY [facility] Last Admin: 01/05/25 08:31 Dose: 40 mg Documented By: ALTHEA Sertraline HCl (Sertraline Hcl 100 Mg Tablet) 100 mg PO DAILY [facility] Last Admin: 01/05/25 08:31 Dose: 100 mg Documented By: ALTHEA Sodium Chloride (0.9 % Sodium Chloride Flush 3 Ml Syringe) 3 ml IVFLUSH QSHIFT [facility] Last Admin: 01/05/25 08:32 Dose: 3 ml Documented By: ALTHEA Labs 01/04/25 06:32 01/05/25 06:52 Labs: Laboratory Results - last 24 hr 01/04/25 01/05/25 01/05/25 14:10 06:51 06:52 Hold Purple Top SEE NOTE Anion Gap 11 L Estim Creat Clear Calc 56.8 Estimated GFR 56 Random Glucose 101 Calcium 8.5 Magnesium 2.2 Urine Color Yellow Urine Appearance Clear Urine pH 7.0 Ur Specific [place] <= 1.005 Urine Protein Negative Urine Glucose (UA) Negative Urine Ketones Negative Urine Blood Negative Urine Nitrite Negative Ur Leukocyte Esterase Negative Assessment and Plan (1) Cocaine abuse: Status: Acute Plan d4, 64yo F with asthma, HTN, mood disorder found on the ground by her , somnolent but reporting severe BENZ + GI upset, admitted for encephalopathy likely due to cocaine abuse acute toxic encephalopathy - likely due to cocaine, EEG negative, Neuro consulted, no driving x6mo cocaine abuse - Addiction Medicine consulted, HBV/HCV/HIV screening negative, pt denies intake, GC/MS sent out for confirmation as pt insists she did not do cocaine acute asthma-COPD excerbation - changed methylprednisolone to prednisone, standing/prn nebs hypoK - repleted IRIS, prerenal - resolving with fluid repletion; holding losartan-HCTZ hyperNa, mild - encourage free water intake, recheck BMP tomorrow prologned QTc - resolved, repeat QTc 469 ms HTN - holding losartan-HCTZ mood disorder - resumed sertraline + bupropion tobacco abuse - NRT, counseling VTE ppx - enoxaparin dispo - STR In my clinical judgment, the patient requires continued inpatient hospitalization for the following reasons: placement Total time managing care of this patient today: 35 minutes. Quality Stroke Does the patient have a stroke diagnosis?: No VTE Prior VTE?: No VTE Risk Level:: Medical - moderate - high VTE Device Contraindication: Treatment Not Indicated VTE Drug Contraindication: N/A - Med Ordered
[2025-01-06] VITALS (12 sets, daily range): BP systolic 119–161; BP diastolic 64–79; PULSE 70–86; RESP 16–24; TEMP 36.1–36.8; O2SAT 95–98
[2025-01-06] MEDS: 0.9 % Sodium Chloride Flush 3 ML SYRINGE IVFLUSH ×2 (00:06→10:19)
[2025-01-06] MEDS: oxyCODONE HCl Immed Release 5 MG TABLET PO ×2 (00:11→23:33)
[2025-01-06] MEDS: Albuterol Sulfate (0.083%) 2.5 MG/3 ML VIAL.NEB INHALE (00:21)
[2025-01-06 07:12] LABS: Anion Gap 10 (12-20); Blood Urea Nitrogen 16 mg/dL (9-16); Calcium 8.4 mg/dL (8.4-10.2); Carbon Dioxide 22 mmol/L (22-29); Chloride 115 mmol/L (96-108); Creatinine Clr Calc Pharmacy 49.4; Estimated Glomerular Filt Rate 48; Potassium 3.3 mmol/L (3.3-5.1); Sodium 144 mmol/L (135-145)
[2025-01-06] MEDS: Albuterol/Iprat 2.5/0.5MG 3 ML AMPUL.NEB INHALE ×4 (07:37→20:00)
[2025-01-06] MEDS: buPROPion HCl XL 150 MG TAB.ER.24H PO (10:18)
[2025-01-06] MEDS: Nicotine 14 MG PATCH.TD24 TRANSDERMA (10:19)
--- NOTE | 2025-01-06 10:51 | HO.SKINPHOTO ---
Location: Left Forearm 22 gauge ultrasound guided IV site. Area above IV site, red, semi firm, patient c/o pain. IV removed.
--- NOTE | 2025-01-06 11:19 | HO.PM.IMPN ---
Subjective Subjective Date of Service: 01/06/25 Interval History: c/o wheezing This history was taken in [place] from the patient. Review of Systems Review of Systems: Yes all other systems are reviewed and are negative Physical Exam Vital Signs: Vital Signs: Last Vital Signs Temp 98.0 F 01/06/25 11:06 Pulse 70 01/06/25 11:08 Resp 16 01/06/25 11:08 BP 119/74 01/06/25 11:06 Pulse Ox 96 01/06/25 11:06 O2 Del Method Room Air 01/06/25 11:06 O2 Flow Rate 99 01/06/25 03:26 BMI result Body Mass Index 36.1 Gen: in no acute distress HEENT: sclera anicteric, moist mucus membranes Neck: supple Lungs: soft exp wheezes Heart: regular rate and rhythm, no murmurs Abd: soft, non-tender, non-distended Ext: no edema Skin: warm/well-perfused Neuro: alert and oriented x3, no focal findings Psych: restricted affect Objective Data Active Medications Acetaminophen (Acetaminophen 325 Mg Tablet) 650 mg PO Q4H PRN PRN Reason: Pain, Mild 1-3,fever,headache Last Admin: 01/06/25 10:37 Dose: 650 mg Documented By: BASSEM Albuterol Sulfate (Albuterol Sulfate (0.083%) 2.5 Mg/3 Ml Vial.Neb) 2.5 mg INHALE Q2H PRN PRN Reason: Shortness of Breath/Wheezing Last Admin: 01/06/25 00:21 Dose: 2.5 mg Documented By: TITA Albuterol/Ipratropium (Albuterol/Iprat 2.5/0.5mg 3 Ml Ampul.Neb) 3 ml INHALE RQ4H WHILE AWAKE [facility] Last Admin: 01/06/25 11:07 Dose: 3 ml Documented By: ULYSSES Bupropion HCl (Bupropion Hcl Xl 150 Mg Tab.Er.24h) 150 mg PO DAILY [facility] Last Admin: 01/06/25 10:18 Dose: 150 mg Documented By: BASSEM Calcium Carbonate (Calcium Carbonate 750 Mg Tab.Chew) 750 mg PO Q4H PRN PRN Reason: Heartburn Last Admin: 01/06/25 05:33 Dose: 750 mg Documented By: SHARLENE Diazepam (Diazepam 2 Mg Tablet) 2 mg PO TID PRN PRN Reason: Anxiety Last Admin: 01/04/25 02:57 Dose: 2 mg Documented By: SID Enoxaparin Sodium (Enoxaparin Sodium 40 Mg/0.4 Ml Syringe) 40 mg SUBCUT Q24H [facility] Last Admin: 01/06/25 10:18 Dose: 40 mg Documented By: BASSEM Ibuprofen (Ibuprofen 400 Mg Tablet) 400 mg PO Q6H PRN PRN Reason: Headache Last Admin: 01/05/25 16:48 Dose: 400 mg Documented By: BARBIE Nicotine (Nicotine 14 Mg Patch.Td24) 14 mg TRANSDERMA DAILY [facility] Last Admin: 01/06/25 10:19 Dose: 14 mg Documented By: BASSEM Nicotine Polacrilex (Nicotine Polacrilex 2 Mg Gum) 2 mg BUCCAL Q1H PRN PRN Reason: Nicotine Cravings Oxycodone HCl (Oxycodone Hcl Immed Release 5 Mg Tablet) 5 mg PO Q4H PRN PRN Reason: Pain, Severe (Pain Scale 7-10) Last Admin: 01/06/25 00:11 Dose: 5 mg Documented By: SHARLENE Prednisone (Prednisone 20 Mg Tablet) 20 mg PO DAILY [facility] Last Admin: 01/06/25 10:18 Dose: 20 mg Documented By: BASSEM Sertraline HCl (Sertraline Hcl 100 Mg Tablet) 100 mg PO DAILY [facility] Last Admin: 01/06/25 10:18 Dose: 100 mg Documented By: BASSEM Sodium Chloride (0.9 % Sodium Chloride Flush 3 Ml Syringe) 3 ml IVFLUSH QSHIFT [facility] Last Admin: 01/06/25 10:19 Dose: 3 ml Documented By: BASSEM Labs 01/04/25 06:32 01/06/25 05:29 Labs: Laboratory Results - last 24 hr 01/06/25 05:29 Hold Purple Top SEE NOTE Anion Gap 10 L Estim Creat Clear Calc 49.4 Estimated GFR 48 Random Glucose 82 Calcium 8.4 Assessment and Plan (1) Cocaine abuse: Status: Acute Plan d5, 64yo F with asthma, HTN, mood disorder found on the ground by her , somnolent but reporting severe BENZ + GI upset, admitted for encephalopathy likely due to cocaine abuse acute toxic encephalopathy - likely due to cocaine, EEG negative, Neuro consulted, no driving x6mo cocaine abuse - Addiction Medicine consulted, HBV/HCV/HIV screening negative, pt denies intake, GC/MS sent out for confirmation as pt insists she did not do cocaine acute asthma-COPD excerbation - changed methylprednisolone to prednisone, standing/prn nebs hypoK - repleted IRIS, prerenal - resolving with fluid repletion; holding losartan-HCTZ hyperNa, mild - resolved prologned QTc - resolved, repeat QTc 469 ms HTN - holding losartan-HCTZ mood disorder - resumed sertraline + bupropion tobacco abuse - NRT, counseling VTE ppx - enoxaparin dispo - STR In my clinical judgment, the patient requires continued inpatient hospitalization for the following reasons: placement Total time managing care of this patient today: 35 minutes. Quality Stroke Does the patient have a stroke diagnosis?: No VTE Prior VTE?: No VTE Risk Level:: Medical - moderate - high VTE Device Contraindication: Treatment Not Indicated VTE Drug Contraindication: N/A - Med Ordered
[2025-01-07] VITALS (11 sets, daily range): BP systolic 133–147; BP diastolic 72–79; PULSE 69–96; RESP 16–20; TEMP 36.1–36.6; O2SAT 94–98
[2025-01-07] MEDS: Albuterol Sulfate (0.083%) 2.5 MG/3 ML VIAL.NEB INHALE (02:28)
[2025-01-07] MEDS: Albuterol/Iprat 2.5/0.5MG 3 ML AMPUL.NEB INHALE ×4 (07:40→19:56)
[2025-01-07] MEDS: buPROPion HCl XL 150 MG TAB.ER.24H PO (08:15)
[2025-01-07] MEDS: Nicotine 14 MG PATCH.TD24 TRANSDERMA (08:16)
--- NOTE | 2025-01-07 08:33 | P.PNIM_ITS ---
Subjective Subjective Date of Service: 01/07/25 Interval History: breathing improving, awaiting placement Review of Systems Review of Systems: Yes all other systems are reviewed and are negative Physical Exam 2 Vital Signs: Vital Signs: Last Vital Signs Temp 97.9 F 01/07/25 07:46 Pulse 69 01/07/25 07:46 Resp 18 01/07/25 07:46 BP 143/75 H 01/07/25 07:46 Pulse Ox 97 01/07/25 07:46 O2 Del Method Room Air 01/07/25 07:46 O2 Flow Rate 99 01/06/25 03:26 BMI result Body Mass Index 36.1 Gen: in no acute distress HEENT: sclera anicteric, moist mucus membranes Neck: supple Lungs: soft exp wheezes Heart: regular rate and rhythm, no murmurs Abd: soft, non-tender, non-distended Ext: no edema Skin: warm/well-perfused Neuro: alert and oriented x3, no focal findings Psych: restricted affect Objective Data Active Medications Acetaminophen (Acetaminophen 325 Mg Tablet) 650 mg PO Q4H PRN PRN Reason: Pain, Mild 1-3,fever,headache Last Admin: 01/06/25 19:28 Dose: 650 mg Documented By: ARPAN Albuterol Sulfate (Albuterol Sulfate (0.083%) 2.5 Mg/3 Ml Vial.Neb) 2.5 mg INHALE Q2H PRN PRN Reason: Shortness of Breath/Wheezing Last Admin: 01/07/25 02:28 Dose: 2.5 mg Documented By: AMANDA Albuterol/Ipratropium (Albuterol/Iprat 2.5/0.5mg 3 Ml Ampul.Neb) 3 ml INHALE RQ4H WHILE AWAKE REPLACED BY [facility] Last Admin: 01/07/25 07:40 Dose: 3 ml Documented By: ULYSSES Bisacodyl (Bisacodyl 5 Mg Tablet.Dr) 10 mg PO BEDTIME PRN PRN Reason: Constipation Bupropion HCl (Bupropion Hcl Xl 150 Mg Tab.Er.24h) 150 mg PO DAILY [facility] Last Admin: 01/07/25 08:15 Dose: 150 mg Documented By: COLBURK Calcium Carbonate (Calcium Carbonate 750 Mg Tab.Chew) 750 mg PO Q4H PRN PRN Reason: Heartburn Last Admin: 01/06/25 23:34 Dose: 750 mg Documented By: SHARLENE Diazepam (Diazepam 2 Mg Tablet) 2 mg PO TID PRN PRN Reason: Anxiety Last Admin: 01/04/25 02:57 Dose: 2 mg Documented By: SID Enoxaparin Sodium (Enoxaparin Sodium 40 Mg/0.4 Ml Syringe) 40 mg SUBCUT Q24H [facility]PL[facility] Last Admin: 01/07/25 08:16 Dose: 40 mg Documented By: BASSEM Ibuprofen (Ibuprofen 400 Mg Tablet) 400 mg PO Q6H PRN PRN Reason: Headache Last Admin: 01/07/25 08:15 Dose: 400 mg Documented By: BASSEM Nicotine (Nicotine 14 Mg Patch.Td24) 14 mg TRANSDERMA DAILY [facility] Last Admin: 01/07/25 08:16 Dose: 14 mg Documented By: BASSEM Nicotine Polacrilex (Nicotine Polacrilex 2 Mg Gum) 2 mg BUCCAL Q1H PRN PRN Reason: Nicotine Cravings Oxycodone HCl (Oxycodone Hcl Immed Release 5 Mg Tablet) 5 mg PO Q4H PRN PRN Reason: Pain, Severe (Pain Scale 7-10) Last Admin: 01/06/25 23:33 Dose: 5 mg Documented By: SHARLENE Polyethylene Glycol (Polyethylene Glycol 3350 17 Gm Powd.Pack) 17 gm PO DAILY [facility] Last Admin: 01/07/25 08:21 Dose: Not Given Documented By: BASSEM Non-Admin Reason: Patient Refused Prednisone (Prednisone 20 Mg Tablet) 20 mg PO DAILY [facility] Last Admin: 01/07/25 08:16 Dose: 20 mg Documented By: BASSEM Senna/Docusate Sodium (Sennosides/Docusate Sodium Tablet) 2 tab PO BID REPLACED BY [facility] Last Admin: 01/07/25 08:16 Dose: 2 tab Documented By: BASSEM Sertraline HCl (Sertraline Hcl 100 Mg Tablet) 100 mg PO DAILY [facility] Last Admin: 01/07/25 08:15 Dose: 100 mg Documented By: BASSEM Sodium Chloride (0.9 % Sodium Chloride Flush 3 Ml Syringe) 3 ml IVFLUSH QSHIFT REPLACED BY [facility] Last Admin: 01/07/25 08:16 Dose: Not Given Documented By: BASSEM Non-Admin Reason: No Access Labs 01/04/25 06:32 01/06/25 05:29 Assessment and Plan (1) Cocaine abuse: Status: Acute Plan d6, 64yo F with asthma, HTN, mood disorder found on the ground by her , somnolent but reporting severe BENZ + GI upset, admitted for encephalopathy likely due to cocaine abuse acute toxic encephalopathy - likely due to cocaine, EEG negative, Neuro consulted, no driving x6mo cocaine abuse - Addiction Medicine consulted, HBV/HCV/HIV screening negative, pt denies intake, GC/MS sent out for confirmation as pt insists she did not do cocaine acute asthma-COPD excerbation - changed methylprednisolone to prednisone, standing/prn nebs hypoK - repleted IRIS, prerenal - resolving with fluid repletion; holding losartan-HCTZ hyperNa, mild - resolved prologned QTc - resolved, repeat QTc 469 ms HTN - holding losartan-HCTZ mood disorder - resumed sertraline + bupropion tobacco abuse - NRT, counseling VTE ppx - enoxaparin dispo - STR In my clinical judgment, the patient requires continued inpatient hospitalization for the following reasons: placement Total time managing care of this patient today: 35 minutes. Quality Stroke Does the patient have a stroke diagnosis?: No VTE Prior VTE?: No VTE Risk Level:: Medical - moderate - high VTE Device Contraindication: Treatment Not Indicated VTE Drug Contraindication: N/A - Med Ordered
[2025-01-07] MEDS: oxyCODONE HCl Immed Release 5 MG TABLET PO (23:52)
[2025-01-08] VITALS (8 sets, daily range): BP systolic 139–170; BP diastolic 69–92; PULSE 55–81; RESP 14–18; TEMP 36–36.8; O2SAT 97–99
[2025-01-08] MEDS: Albuterol/Iprat 2.5/0.5MG 3 ML AMPUL.NEB INHALE ×2 (08:14→11:08)
[2025-01-08] MEDS: Nicotine 14 MG PATCH.TD24 TRANSDERMA (08:23)
[2025-01-08] MEDS: buPROPion HCl XL 150 MG TAB.ER.24H PO (08:24)
--- NOTE | 2025-01-08 10:22 | MHC.CM.PN ---
Referral expanded and bed offers received. Reviewed w/ patient who reports she does not want to go to [email or web address] prefers home w/ [facility]. Per MD, medically cleared for dc. will transport around 12:30. RN aware.
--- NOTE | 2025-01-08 10:45 | P.F2F_ITS ---
Service Date Service Date: 01/08/25 Encounter Date of encounter: 01/08/25 Reasons for Services Signs and symptoms assessed: see PT eval Reason for physical therapy: home safety and mobility, therapeutic exercises, gait/transfer training, assess need for DME, ADL training and energy conservation MD Overseeing Care: Kari Huffman Homebound: Leaving the home is medically contraindicated at this time without the asist of a device and/or another person due th the listed conditions above and below. Reason homebound: unsteady gait / fall risk and weakness related to hospital stay Certification: Based on the above findings, I certify that this patient is confined to the home and needs intermittent nursing home care, physical therapy and/or speech therapy, or continues to need occupational therapy. The patient is under my care, and I have initiated the establishment of the plan of care. The patient will be followed by a physician who will periodically review the plan of care. Time Spent With Patient Time: Total time managing care of this patient today ____ minutes.
--- NOTE | 2025-01-08 10:52 | PM.DS ---
DS: Providers Provider Date of Service: 01/08/25 Date of admission: 01/02/25 10:49 Date of discharge: 01/08/25 Primary care physician: Kari Huffman MD Consults: 01/03/25 08:08 Addiction Medicine Provider Routine Consulting Provider: Addiction Covering Reason for consultation: cocaine abuse Consult to Neurology Routine Consulting Provider: [facility] Reason for consultation: encephalopathy ?sz DS: Diagnosis Discharge Diagnosis (1) Cocaine abuse: Status: Acute (2) Toxic encephalopathy: Status: Acute (3) Acute kidney injury: Status: Acute (4) Hypernatremia: Status: Acute (5) Encephalopathy acute: Status: Acute (6) Asthma with COPD with exacerbation: Status: Acute (7) Aortic root dilation: Status: Acute (8) Hypokalemia: Status: Acute DS: Summary Hospital Course Hospital Course: From the history and physical by the admitting hospitalist, Roman Hunter MD, 01/02/25: Daphne Isidro is a 64 years old woman past medical history significant for asthma, essential hypertension, mood disorder and ongoing tobacco smoking was brought to the emergency department after she was found on the ground her this morning. Upon arrival to the ED she was unable to answer questions for the ED staff and was noted to be somnolent and difficult to arouse. It seems like she was reporting severe headache and GI upset. EMS verify her blood glucose was 167. On evaluation, the patient was sedated and still difficult to arouse, however, was able to open her eyes but will fall asleep immediately. According to nursing she received Valium IV. In the ED, she was found to have normal vital signs. She was placed on supplemental oxygen by nursing, currently on 2 L/min via nasal cannula. Her blood workup is significant for hypernatremia 146, hyperchloremia and hypokalemia of 3.2. Her creatinine is 1.68 (baseline around 0.9 - 1.0). Glucose 168. There is no leukocytosis. Hemoglobin and platelets are normal. Ammonia level and total CK are normal. TSH is 0.85. LFTs are unremarkable. Serum Urinalysis showed elevated specific gravity 1+ protein, without evidence of UTI. Her toxicology is positive for cocaine. ETOH level is less than 10. Head CT scan without contrast showed no acute intracranial findings. Head and neck CTA showed no large vessel occlusion, stenosis or aneurysms. The ascending thoracic aorta was noted to be dilated, 3.9 cm. C-spine CT scan showed no acute fracture or traumatic malalignment. Emphysema noted in the apices and left apical pulmonary nodule. CXR is negative. ECG showed normal sinus rhythm and prolonged QT (511 ms). ED tx: LR 1 L bolus, KCl IV, Valium 2.5 mg IV 64yo F with asthma/COPD overlap, HTN, mood disorder found on the ground by her , somnolent but reporting severe BENZ + GI upset, admitted for encephalopathy likely due to cocaine abuse. Hospital course by problem: acute toxic encephalopathy - likely due to cocaine, EEG negative, Neuro consulted, no driving x6mo cocaine abuse - Addiction Medicine consulted, HBV/HCV/HIV screening negative, pt denies intake, GC/MS sent out for confirmation as pt insists she did not do cocaine acute asthma-COPD excerbation - changed methylprednisolone to prednisone, standing/prn nebs; discharged on prednisone taper over 6 days hypoK - repleted IRIS, prerenal - resolved with fluid repletion and holding losartan-HCTZ; resumed upon discharge and should repeat BMP in 1 week hyperNa, mild - resolved with oral hydration prologned QTc - resolved after K repleted, repeat QTc 469 ms incidental aortic root dilation to 3.9 cm - start surveillance with yearly echocardiography Discharge to [facility] was recommended for physical rehabilitation but she declined; she was instead discharged home with VNA services. Time Attestation Discharge Coordination Time (in mins): 35 Quality: Safe Use of Opioids Does Pt have an Active Cancer Diagnosis on the Problem List?: No Quality: Stroke Does the patient have a stroke diagnosis?: No Physical Exam Vital Signs: Vital Signs: Last Vital Signs Temp 98.2 F 01/08/25 07:52 Pulse 65 01/08/25 08:15 Resp 18 01/08/25 08:15 BP 156/80 H 01/08/25 08:30 Pulse Ox 99 01/08/25 07:52 O2 Del Method Room Air 01/08/25 07:52 O2 Flow Rate 99 01/06/25 03:26 BMI result Body Mass Index 36.1 Gen: in no acute distress HEENT: sclera anicteric, moist mucus membranes Neck: supple Lungs: clear to auscultation bilaterally Heart: regular rate and rhythm, no murmurs Abd: soft, non-tender, non-distended Ext: no edema Skin: warm/well-perfused Neuro: alert and oriented x3, no focal findings Psych: appropriate affect DS: Data Data Completed and Pending Completed studies during hospitalization [Text1]: Laboratory Results WBC 8.5 X10*3/uL (4.8-10.8) 01/04/25 06:32 RBC 3.76 X10*6/uL (4.20-5.50) L 01/04/25 06:32 Hgb 11.6 g/dl (12.0-16.0) L 01/04/25 06:32 Hct 35.1 % (37.0-47.0) L 01/04/25 06:32 MCV 93.4 fL (80.0-98.0) 01/04/25 06:32 MCH 30.9 pg (27.0-33.0) 01/04/25 06:32 MCHC 33.0 g/dl (31.0-35.0) 01/04/25 06:32 RDW 13.8 % (11.0-16.0) 01/04/25 06:32 Plt Count 181 X10*3/uL (160-400) 01/04/25 06:32 MPV 10.7 fL (9.4-12.3) 01/04/25 06:32 Immature Gran % (Auto) 0.7 % (0.0-0.4) H 01/02/25 05:05 Neut % (Auto) 83.5 % (45-73) H 01/02/25 05:05 Lymph % (Auto) 12.7 % (20-40) L 01/02/25 05:05 [place] % (Auto) 2.7 % (2-11) 01/02/25 05:05 Eos % (Auto) 0.1 % (0-4) 01/02/25 05:05 Baso % (Auto) 0.3 % (0-2) 01/02/25 05:05 Lymph # (Auto) 1.2 X10*3/uL (1.2-4.9) 01/02/25 05:05 [place] # (Auto) 0.3 X10*3/uL (0.1-1.2) 01/02/25 05:05 Eos # (Auto) 0.0 X10*3/uL (0.0-0.4) 01/02/25 05:05 Baso # (Auto) 0.0 X10*3/uL (0.0-0.2) 01/02/25 05:05 Abs Immat Gran (auto) 0.07 X10*3/uL (0.00-0.03) H 01/02/25 05:05 Absolute Neuts (auto) 8.2 x10*3/uL (2.0-8.3) 01/02/25 05:05 Absolute Nucleated RBC 0.000 X10*3/uL (0.0-0.012) 01/04/25 06:32 Nucleated RBC % (auto) 0.0 /100WBC (0.0-0.2) 01/04/25 06:32 Hold Purple Top SEE NOTE 01/06/25 05:29 VBG pH 7.34 (7.32-7.43) 01/02/25 11:46 VBG pCO2 49 mmHg 01/02/25 11:46 VBG pO2 49 mmHg 01/02/25 11:46 VBG HCO3 26 mmol/L (22-26) 01/02/25 11:46 VBG O2 Saturation 78.0 % 01/02/25 11:46 VBG Base Excess 0.5 mmol/L 01/02/25 11:46 Sodium 144 mmol/L (135-145) 01/06/25 05:29 Potassium 3.3 mmol/L (3.3-5.1) 01/06/25 05:29 Chloride 115 mmol/L (96-108) H 01/06/25 05:29 Carbon Dioxide 22 mmol/L (22-29) 01/06/25 05:29 Anion Gap 10 (12-20) L 01/06/25 05:29 BUN 16 mg/dL (9-16) 01/06/25 05:29 Creatinine 1.15 mg/dL (0.5-1.4) 01/06/25 05:29 Estim Creat Clear Calc 49.4 01/06/25 05:29 Estimated GFR 48 01/06/25 05:29 POC Glucose 138 mg/dL (60-115) H 01/02/25 04:49 Random Glucose 82 mg/dL (60-115) 01/06/25 05:29 Lactic Acid 1.1 mmol/L (0.5-2.0) 01/02/25 17:17 Calcium 8.4 mg/dL (8.4-10.2) 01/06/25 05:29 Magnesium 2.2 mg/dL (1.6-2.6) 01/05/25 06:52 Total Bilirubin 0.3 mg/dL (0.0-1.0) 01/04/25 06:32 AST 21 U/L (5-31) 01/04/25 06:32 ALT 10 U/L (0-31) 01/04/25 06:32 Alkaline Phosphatase 53 U/L (39-117) 01/04/25 06:32 Ammonia 34 umol/L (13-55) 01/02/25 09:12 Total Creatine Kinase 281 U/L (26-140) H 01/03/25 06:19 Troponin I High Sens 5.4 ng/L (<3.5-17.0) 01/02/25 05:05 C-Reactive Protein 0.57 mg/dL (< or = 0.50) H 01/02/25 05:05 Total Protein 6.2 g/dL (6.5-8.0) L 01/04/25 06:32 Albumin 3.8 g/dL (3.5-5.0) 01/04/25 06:32 Vitamin B12 251 pg/mL (200-900) 01/02/25 17:17 TSH 0.85 uIU/mL (0.32-4.0) 01/02/25 05:05 Urine Color Yellow 01/04/25 14:10 Urine Appearance Clear 01/04/25 14:10 Urine pH 7.0 (5.0-9.0) 01/04/25 14:10 Ur Specific [place] <= 1.005 (1.005-1.025) 01/04/25 14:10 Urine Protein Negative mg/dL (Neg-Trace) 01/04/25 14:10 Urine Glucose (UA) Negative mg/dL (Negative) 01/04/25 14:10 Urine Ketones Negative mg/dL (Negative) 01/04/25 14:10 Urine Blood Negative (Negative) 01/04/25 14:10 Urine Nitrite Negative (Negative) 01/04/25 14:10 Ur Leukocyte Esterase Negative (Negative) 01/04/25 14:10 Urine RBC 0-2 /HPF (0-2) 01/02/25 09:58 Urine WBC 0-5 /HPF (0-5) 01/02/25 09:58 Ur Squamous Epith Cells 0-2 /HPF (0-2) 01/02/25 09:58 Calcium Oxalate Crystal Present 01/02/25 09:58 Urine Bacteria None Seen (None Seen) 01/02/25 09:58 Hyaline Casts 11-20 /LPF (0-2) 01/02/25 09:58 Granular Casts Present 01/02/25 09:58 Urine Opiates Screen Not Detected (Not Detect) 01/02/25 09:58 Ur Buprenorphine Scrn Not Detected ng/mL (Not Detect) 01/02/25 09:58 Ur Oxycodone Screen Not Detected ng/mL (Not Detect) 01/02/25 09:58 Urine Methadone Screen Not Detected ng/mL (Not Detect) 01/02/25 09:58 Urine Fentanyl Screen Not Detected (Not Detect) 01/02/25 09:58 Ur Barbiturates Screen Not Detected (Not Detect) 01/02/25 09:58 Ur Phencyclidine Scrn Not Detected (Not Detect) 01/02/25 09:58 Ur Amphetamines Screen Not Detected (Not Detect) 01/02/25 09:58 U Benzodiazepines Scrn Not Detected (Not Detect) 01/02/25 09:58 Urine Cocaine Screen POSITIVE (Not Detect) H 01/02/25 09:58 U Marijuana (THC) Screen Not Detected (Not Detect) 01/02/25 09:58 Ethyl Alcohol < 10 mg/dL 01/02/25 05:05 Hep Bs Antigen Negative (Negative) 01/04/25 06:32 Hep Bs Antibody NONREACTIVE (Nonreactive) 01/04/25 06:32 Hep B Core Total Ab Nonreactive (Nonreactive) 01/04/25 06:32 Hepatitis C Ab (EIA) Nonreactive (Nonreactive) 01/04/25 06:32 HIV 1&2 Ab/P24 Ag 4thGn Nonreactive (Nonreactive) 01/04/25 06:32 Impressions Head/Neck CTA 01/02/25 05:14 IMPRESSION: 1. No large vessel occlusion, hemodynamically significant stenosis, or aneurysm in the head and neck. 2. Dilatation of the ascending thoracic aorta measuring up to 3.9 cm in diameter. Electronically signed by: Jaylen Chow MD 01/02/2025 08:40 AM EDT RP Chest X-Ray 01/02/25 07:51 IMPRESSION: No acute cardiopulmonary abnormality. Electronically signed by: Jaylen Chow MD 01/02/2025 09:08 AM EDT RP Brain MRI 01/03/25 10:55 IMPRESSION: No acute intracranial abnormality. No evidence of an acute infarct. Electronically signed by: Jaylen Chow MD 01/03/2025 12:20 PM EDT RP Abdomen CT 01/04/25 10:14 IMPRESSION: 1. No acute findings in the abdomen. No urological calculus or obstruction. Electronically signed by: Bhupinder Lara MD 01/04/2025 12:05 PM EDT RP Discharge Plan Discharge Anticipated Discharge Date/Time: 01/08/25 10:46 Patient Disposition: Home Health Service Discharge Diagnosis: encephalopathy possible cocaine intoxication COPD/asthma exacerbation acute kidney injury Referrals: Kari Huffman MD [Primary Care Provider, Internal Medicine] - 1 Week Discharge Medications: New nicotine 14 mg/24 hr Patch 24 Hour 14 mg transdermal DAILY Qty: 30 0RF nicotine (polacrilex) 2 mg Gum 2 mg buccal Q1H PRN (Reason: Nicotine Cravings) Qty: 100 0RF prednisone 5 mg tablet See Rx Instructions .ROUTE .COMPLEX Qty: 12 0RF Rx Instructions: 15 mg daily x 2 days then 10 mg daily x 2 days then 5 mg daily x 2 days then stop Continued sertraline 100 mg tablet 100 mg PO DAILY losartan-hydrochlorothiazide 100-25 mg tablet 1 tab PO DAILY bupropion HCl 150 mg tablet extended release 24 hr 150 mg PO DAILY albuterol sulfate 2.5 mg /3 mL (0.083 %) solution for nebulization 2.5 mg inhalation BID PRN (Reason: Shortness Of Breath Or Wheezing) albuterol sulfate [Ventolin HFA] 90 mcg/actuation HFA aerosol inhaler 2 puff INHALATION QID PRN (Reason: asthma) Discharge Orders: Discharge Order (Routine); Ordered 01/08/25 Ordered By: Gaye Arias Diet: Advance to usual diet Activity on Discharge: As tolerated Stand Alone Forms: Patient Portal Discharge page Print Language: Lao Other Ambulatory Orders: Basic Metabolic Panel (Routine) Timeframe: 1 Week Facility: [facility] - Location: Laboratory Ordered By: Gaye Arias Care Plan Goals: recovery from hospitalization Health Concerns: see below Plan of Treatment: home with VNA services/home PT encephalopathy possible cocaine intoxication - resolved; confirmatory cocaine screen pending; avoid any substance of abuse - do not drive for 6 months COPD/asthma exacerbation - prednisone taper: 15 mg daily x 2 days then 10 mg daily x 2 days then 5 mg daily x 2 days then stop acute kidney injury - resolved; recheck BMP in 1 week aortic root dilation - follow up with your PCP and obtain echocardiogram in 1 year tobacco abuse - quit smoking; use nicotine patch and gum to help Please follow up with your primary care doctor within 1 week. Return to the hospital if you experience recurrent or worsening symptoms. Assessment: See Discharge Summary.
[2025-01-08] MEDS: oxyCODONE HCl Immed Release 5 MG TABLET PO (12:44)
== END 2025-01-08 13:00 | disposition home health service (06) | DRG 816 ==
LOC: HO.ED 10:50 → HO.EDOVER 10:53 → HO.IMC 01-03 14:55 → HO.S3 01-05 15:00
PROVIDERS: Emergency Medicine; Internal Medicine; Nurse Practitioner Psychiatric/Mental Health; Admitting Provider Internal Medicine; Emergency Provider Emergency Medicine; PCP Internal Medicine; Visit Provider Family Medicine
DX: T40.5X1A Poisoning by cocaine, accidental (unintentional), initial encounter (principal); G92.8 Other toxic encephalopathy; N17.9 Acute kidney failure, unspecified; J44.1 Chronic obstructive pulmonary disease with (acute) exacerbation; J45.901 Unspecified asthma with (acute) exacerbation; E87.0 Hyperosmolality and hypernatremia; I77.810 Thoracic aortic ectasia; R94.31 Abnormal electrocardiogram [ECG] [EKG]; T50.2X5A Adverse effect of carbonic-anhydrase inhibitors, benzothiadiazides and other diuretics, initial encounter; F39 Unspecified mood [affective] disorder; E87.6 Hypokalemia; F14.10 Cocaine abuse, uncomplicated; F17.210 Nicotine dependence, cigarettes, uncomplicated; Z71.6 Tobacco abuse counseling; Z79.899 Other long term (current) drug therapy
CPT/HCPCS: 36415; 70450; 70496; 70498; 70551; 71045; 72125; 74150; 80048; 80053; 80307; 80353; 81001; 81003; 82140; 82550; 82607; 82803; 82947; 83605; 83735; 84443; 84484; 85025; 85027; 86140; 86704; 86706; 86803; 87340; 87389; 93005; 94640; 95816; 97162; 99221; 99285; J1650; J2919; J3360; J3480; J7120; Q9967

== ENCOUNTER → 2025-01-02 05:04 | Outpatient (BNV) | payer OTHER, SELFPAY | PROVIDERS: Admitting Provider Internal Medicine; Emergency Provider Emergency Medicine; PCP Internal Medicine; Visit Provider Internal Medicine | DX: R94.31 Abnormal electrocardiogram [ECG] [EKG] (principal); Z13.6 Encounter for screening for cardiovascular disorders | CPT/HCPCS: 93010 ==

== ENCOUNTER 2025-01-02 10:49 | Outpatient (BNV) | payer OTHER, SELFPAY | END 2025-01-03 08:20 | PROVIDERS: Admitting Provider Internal Medicine; Emergency Provider Emergency Medicine; PCP Internal Medicine; Visit Provider Internal Medicine | DX: Z13.6 Encounter for screening for cardiovascular disorders (principal) | CPT/HCPCS: 93010 ==

== ENCOUNTER 2025-01-02 10:49 | Outpatient (BNV) | payer OTHER, SELFPAY | END 2025-01-04 10:14 | PROVIDERS: Admitting Provider Internal Medicine; Emergency Provider Emergency Medicine; PCP Internal Medicine; Visit Provider Radiology Diagnostic Radiology | DX: N23 Unspecified renal colic (principal) | CPT/HCPCS: 74150 ==

== ENCOUNTER 2025-01-02 10:49 | Outpatient (BNV) | payer OTHER, SELFPAY | END 2025-01-03 10:55 | PROVIDERS: Admitting Provider Internal Medicine; Emergency Provider Emergency Medicine; PCP Internal Medicine; Visit Provider Radiology Diagnostic Radiology | DX: R41.82 Altered mental status, unspecified (principal) | CPT/HCPCS: 70551 ==

== ENCOUNTER → 2025-01-02 10:49 | Outpatient (BNV) | payer OTHER, SELFPAY | PROVIDERS: Admitting Provider Internal Medicine; Emergency Provider Emergency Medicine; PCP Internal Medicine; Visit Provider Psychiatry & Neurology Neurology | DX: G93.40 Encephalopathy, unspecified (principal) | CPT/HCPCS: 95816; 99222 ==

== ENCOUNTER → 2025-01-02 10:49 | Outpatient (BNV) | payer OTHER, SELFPAY | PROVIDERS: Admitting Provider Internal Medicine; Emergency Provider Emergency Medicine; PCP Internal Medicine; Visit Provider Nurse Practitioner Psychiatric/Mental Health | DX: E87.0 Hyperosmolality and hypernatremia (principal) | CPT/HCPCS: 99221 ==

== ENCOUNTER → 2025-01-02 10:49 | Outpatient (BNV) | payer OTHER, SELFPAY | PROVIDERS: Admitting Provider Internal Medicine; Emergency Provider Emergency Medicine; PCP Internal Medicine; Visit Provider Internal Medicine | DX: F14.10 Cocaine abuse, uncomplicated (principal) | CPT/HCPCS: 99232 ==

== ENCOUNTER 2025-01-09 11:41 | Outpatient (REF) | payer OTHER, SELFPAY ==
--- OUTSIDE RECORDS SUMMARY | 2025-01-09 12:42 | XMS_ITS | Clinical Summary ---
Author Organization [address] Address [address] [place] [address] Phone Care Team Providers Care Highway Maintenance Crew Worker Name Role Phone Kari Huffman MD Primary Care Provider [phone] Surgical History Surgery Date Site/Laterality Comments CHOLECYSTECTOMY PROCEDURE: HISTORICAL CHOLECYSTECTOMY Medical History Medical History Date Comments HTN (hypertension) DX:HTN (hyper tension) Hyperlipidemia DX:Hyperlipidemi a Varicose veins with pain DX:Vari cose veins with pain Asthma DX:Asthma COPD (chronic obstructive pu lmonary disease) ([facility] V24, [facility] V28) DX:COPD (chronic o bstructive pulmonary disease) ([facility]) GERD (gastroesophageal reflux disease) DX:GERD (gastroesophageal reflux [...] Years (1 of 2 - PCV) 1979 Zoster Vaccines (1 of 2) 2010 RSV Immunization Adult Patients (1 - Risk 60-74 years 1-dose series) 2020 COVID-19 Vaccine (1 - 2023-2 5 season) 2024 Depression Screening 05/31/2024 Cholesterol Screening (Lipid Panel) 07/24/2024 Colorectal Cancer Screening: Colonoscopy 07/24/2024 HIV Screening 07/24/2024 Hepatitis C Screening 07/24/2024 Hypertension/CHF/CAD Annual BMP Blood Test 07/24/2024 Social Influencers of Health Screening 07/24/2024 Influenza Vaccine (#1) 2025 Cervical Cancer Screening: HPV 05/03/2029 1 [...] LAB MICROBIOLOGY METHOD 05/12/2024 3:43 PM EST [facility] Brushing/Spatula Cervix uteri structure / Unknown 05/03/2024 05/11/2024 8:56 AM EST us Kari Huffman MD LAB MOLECULAR DIAGNOSTICS ORD ERABLES Final Result [facility] [address] [place] [address], [place] [phone] from Last 3 Months or Most Recently Relevant to Health Maintenance Insurance MEDICAID - [place] Care Teams Highway Maintenance Crew Worker Relationship Specialty Start Date End Date Kari Huffman MD [address] PCP - General Internal Medicine 04/06/18
[2025-01-09 12:58] LABS: Anion Gap 12 (12-20); Blood Urea Nitrogen 17 mg/dL (9-16); Calcium 8.6 mg/dL (8.4-10.2); Carbon Dioxide 25 mmol/L (22-29); Chloride 113 mmol/L (96-108); Estimated Glomerular Filt Rate > 60; Potassium 3.7 mmol/L (3.3-5.1); Sodium 146 mmol/L (135-145)
== END 2025-01-09 11:42 | disposition home or self-care (01) ==
LOC: HO.LAB 11:41
PROVIDERS: PCP Internal Medicine; Visit Provider Family Medicine
DX: N17.9 Acute kidney failure, unspecified (principal)
CPT/HCPCS: 36415; 80048

== ENCOUNTER 2025-01-10 14:30 | Outpatient (REF) | payer OTHER, SELFPAY ==
--- OUTSIDE RECORDS SUMMARY | 2025-01-10 14:43 | XMS_ITS | Clinical Summary ---
Author Organization [address] Address [address] [place] [address] Phone Care Team Providers Care Inside Sales Person Name Role Phone Kari Huffman MD Primary Care Provider [phone] Surgical History Surgery Date Site/Laterality Comments CHOLECYSTECTOMY PROCEDURE: HISTORICAL CHOLECYSTECTOMY Medical History Medical History Date Comments HTN (hypertension) DX:HTN (hyper tension) Hyperlipidemia DX:Hyperlipidemi a Varicose veins with pain DX:Vari cose veins with pain Asthma DX:Asthma COPD (chronic obstructive pu lmonary disease) ([facility] V24, [facility] V28) DX:COPD (chronic o bstructive pulmonary disease) ([facility]) GERD (gastroesophageal reflux disease) DX:GERD (gastroesophageal reflux [...] LAB MICROBIOLOGY METHOD 05/12/2024 3:43 PM EST [facility] Brushing/Spatula Cervix uteri structure / Unknown 05/03/2024 05/11/2024 8:56 AM EST us Kari Huffman MD LAB MOLECULAR DIAGNOSTICS ORD ERABLES Final Result [facility] [address] [place] [address], [place] [phone] from Last 3 Months or Most Recently Relevant to Health Maintenance Insurance [place] - [place] Care Teams Inside Sales Person Relationship Specialty Start Date End Date Kari Huffman MD [address] PCP - General Internal Medicine 04/06/18
[2025-01-10 15:51] LABS: Alanine Aminotransferase 20 U/L (0-31); Albumin Level 4.0 g/dL (3.5-5.0); Alkaline Phosphatase 54 U/L (39-117); Anion Gap 12 (12-20); Aspartate Amino Transferase 20 U/L (5-31); Blood Urea Nitrogen 16 mg/dL (9-16); Calcium 8.9 mg/dL (8.4-10.2); Carbon Dioxide 26 mmol/L (22-29); Chloride 109 mmol/L (96-108); Estimated Glomerular Filt Rate 55; Potassium 3.9 mmol/L (3.3-5.1); Sodium 143 mmol/L (135-145); Total Protein 6.5 g/dL (6.5-8.0)
== END 2025-01-10 14:31 | disposition home or self-care (01) ==
LOC: HO.LAB 14:30
PROVIDERS: PCP Internal Medicine; Visit Provider Internal Medicine
DX: E87.0 Hyperosmolality and hypernatremia (principal); G93.49 Other encephalopathy; J44.9 Chronic obstructive pulmonary disease, unspecified; Z72.0 Tobacco use
CPT/HCPCS: 36415; 80053

== ENCOUNTER 2025-05-03 08:36 | Outpatient (AMB) | payer MEDICARE, MEDICAID, SELFPAY ==
--- NOTE | 2025-05-03 08:45 | MHC.OFFVIS ---
Intake Visit Reasons: Inj - Right Knee Cortisone Inj-last 05/16/24, Low back pain Intake Note: Daphne 65 year old Emirati speaking female presents with complaints of progressively worsening low back pain which radiates down her right leg as well as right knee pain and swelling. She describes her pains as sharp in nature. Her back pain has gotten worse over the last few years in spite of continued non operative treatments. She has tried Tylenol, anti-inflammatory medicines and physical therapy exercises which aggravated her pain. She also reports intermittent weakness in her right leg. Wind Turbine Electrical Engineer Required: Yes Wind Turbine Electrical Engineer Name: Chani [id number] Allergies Penicillins (PCN) Allergy (Mild, Verified 05/03/25 08:48) ITCHY penicillin V Allergy (Unknown, Verified 05/03/25 08:48) hives Sulfa (Sulfonamide Antibiotics) Allergy (Unknown, Verified 05/03/25 08:48) swelling/ hives sulfamethoxazole (From BACTRIM) Allergy (Unknown, Verified 05/03/25 08:48) SOB, diffuse rash trimethoprim (From BACTRIM) Allergy (Unknown, Verified 05/03/25 08:48) SOB, diffuse rash penicillin Allergy (Unknown, Uncoded 05/03/25 08:48) rash, itchy bactrim Adverse Reaction (Unknown, Uncoded 05/03/25 08:48) asthma Medication List - Last Reconciled 05/03/25 by Carl Lugo MD albuterol sulfate 90 mcg/actuation (Ventolin HFA) 2 puffs inhalation QID PRN albuterol sulfate 2.5 mg inhalation BID PRN bupropion HCl XL 150 mg PO DAILY losartan-hydrochlorothiazide 100-25 mg 1 tab PO DAILY nicotine 14 mg transdermal DAILY nicotine (polacrilex) 2 mg buccal Q1H PRN prednisone 15 mg daily x 2 days then 10 mg daily x 2 days then 5 mg daily x 2 days then stop sertraline 100 mg PO DAILY PFSH Medical History Asthma Social History Household Members: Spouse Housing: Apartment Do you presently have visiting nurse or other home services: No Patient Tobacco Use Status: Current everyday Tobacco user Tobacco use type: Cigarette Cigarettes Per Day: 3 Second Hand Smoke Exposure: No service: No Current occupational status: unemployed Current occupation: Right 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 Physical Exam Back/Spine/Pelvis Other: Low back examination shows right-sided paraspinal muscle tenderness, pain with range of motion positive straight leg raise test on the right at 70 degrees, 4/5 strength with testing of her right hip flexors and knee extensors when compared to 5/5 strength on her left side Extrem Other: Right knee examination shows a moderate effusion, palpable crepitus with range of motion, pain with range of motion, no instability Office Procedures AMB Joint Injection/Aspiration Joint Injection/Aspiration Primary Site: Right Knee Prep: site was prepped using aseptic technique Injected: 40 mg of, DepoMedrol, with 3 mL of and 1% plain Lidocaine Procedure: The patient tolerated the procedure well Coding 19309 - Large joint Procedure code (CPT) selection complete Results Reviewed Results Reviewed: X-rays of the patient's right knee taken previously show joint space narrowing, subchondral sclerosis, no acute bony abnormalities Assessment & Plan Assessment & Plan (1) Low back pain radiating to right lower extremity: Code(s): M54.50 - Low back pain, unspecified; M79.604 - Pain in right leg Category: Medical (2) Arthritis of right knee: Code(s): M17.11 - Unilateral primary osteoarthritis, right knee Category: Medical Plan Ms. Isidro presents with right knee pain due to degenerative joint disease as well as low back pain which radiates into her right leg possibly due to lumbar stenosis or a disc herniation. Thus, I will send the patient for an MRI of her lumbar spine for further evaluation. I will contact her by phone once the results are available. The risks and benefits of a right knee cortisone injection were discussed at length with the patient. The patient wished to proceed. She tolerated the injection well. She will continue with her home exercise program. Feel free to call me at any time should questions regarding her orthopedic management arise. I spent 20 minutes in reviewing the patient's records and imaging studies, seeing the patient and documenting in the medical record. Orders: Orders MR lumbar spine wo con 05/04/25 M54.50 - Low back pain, unspecified, M79.604 - Pain in right leg AMB Joint Injection/Aspiration Today M17.11 - Unilateral primary osteoarthritis, right knee Coding Level of Care Code Est Pt Level 3 (26914) Complex visit Add On G2211 Diagnoses Low back pain radiating to right lower extremity M54.50; M79.604 Arthritis of right knee M17.11 CPT Codes Coding - 92906 Large joint: 33849 - Large joint ([id number])
--- OUTSIDE RECORDS SUMMARY | 2025-05-03 09:22 | XMS_ITS | Encounter Summary ---
Author Organization [facility] Address [address] [place] [address] Care Team Providers Care Investigative Assistant Name Role Phone Kari Huffman MD Primary Care Provider [phone] Encounter Details Date Type Department Care Team (Late st Contact Info) Description 05/05/2024 Lab Requisition [facility] - Main Lab [address] [facility] [place] [address] Kari Huffman MD [address] [place] [address] [place] [id number] Other contact with and (suspected) exposures hazardous to health Social History Tobacco Use Types Packs/Day Years Used Date Smoking Tobacco: Every Day Cigarettes 2 10 Started: 04/13/2007; Last attempted to quit: 04/13/2017 Smokeless Tobacco: Current Comments Unknown Sex and Gender Information Value Date Recorded Sex Assigned at Not on file Legal Sex Female 5:42 AM EST Gender Identity Not on file Sexual Orientation Not on file documented as of this encounter Plan of Treatment Not on file documented as of this encounter Procedures Procedure Name Priority Date/Time Associated Diagnosis Comments HPV GENOTYPE Routine 05/03/2024 12:00 AM EST Other contact with and (suspected) exposures hazardous to health HPV WITH REFLEX GENOTYPE Routine 05/03/2024 12:00 AM EST Other contact with and (suspected) exposures hazardous to health PAP SMEAR Routine 05/03/2024 12:00 AM EST Other contact with and (suspected) exposures hazardous to health documented in this encounter Results * HPV genotype (05/03/2024 12:00 AM EST) HPV Type 16 Negative Negative LAB MICROBIOLOGY METHOD 05/16/2024 1:18 PM EST [facility] HPV Type 18/45 Negative Negative LAB MICROBIOLOGY METHOD 05/16/2024 1:18 PM EST [facility] HPV Type 16,18, and others Valid LAB MICROBIOLOGY METHOD 05/16/2024 1:18 PM EST [facility] Brushing/Spatula Cervix uteri structure / Unknown 05/03/2024 05/11/2024 8:56 AM EST Kari Huffman MD LAB MOLECULAR DIAGNOSTICS ORD ERABLES Final Result [facility] [address] [place] [address], [place] [phone] * (ABNORMAL) HPV with reflex genotype (05/03/2024 12:00 AM EST) HPV Positive( A) Negative LAB MICROBIOLOGY METHOD 05/12/2024 3:43 PM EST [facility] Brushing/Spatula Cervix uteri structure / Unknown 05/03/2024 05/11/2024 8:56 AM EST Kari Huffman MD LAB MOLECULAR DIAGNOSTICS ORD ERABLES Final Result Performing Organization Address City/[facility]/ZIP Co de Phone Number [facility] [address] [place] [address], [place] [phone] * (ABNORMAL) Pap smear (05/03/2024 12:00 AM EST) Interpretation Atypical squamous cells of undetermined significance, cannot exclude high grade(A) 05/15/2024 10:34 AM EST [facility] at 1034 EST General Categorization Epithelial cell abnormality, see interpretation 05/15/2024 10:34 AM [facility] Specimen Adequacy Satisfactory for evaluation 05/15/2024 10:34 AM EST [facility] Pap Methodology Liquid Based Pap Test 05/15/2024 10:34 AM EST [facility] Disclaimer The Pap test is a screening test which carries an inherent false negative rate. These test results should be correlated with the patient's clinical findings and history. This Pap test was processed using an automated screening system. Technical cytopathology services provided by [facility], at [address] [place] [address] (CLIA # [id number]/Xavi Murry MD, [employer].) 05/15/2024 10:34 AM [facility] Console Pap Interpretation Reported 05/15/2024 10:34 AM [facility] Brushing/Spatula Cervix uteri structure / Unknown 05/03/2024 05/05/2024 10:57 AM EST us Kari Huffman MD LAB CYTOLOGY ORDERABLES Final Result [facility] [address] [place] [address], documented in this encounter Visit Diagnoses Diagnosis Other contact with and (suspected) exposures hazardous to health documented in this encounter Care Teams Investigative Assistant Relationship Specialty Start Date End Date Kari Huffman MD [address] [facility] [address] [place], [place] PCP - General Internal Medicine 04/06/18 documented as of this encounter
--- OUTSIDE RECORDS SUMMARY | 2025-05-03 09:22 | XMS_ITS | Clinical Summary ---
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 Name Role Phone Kari Huffman MD Primary Care Provider Surgical History Surgery Date Site/Laterality Comments CHOLECYSTECTOMY PROCEDURE: HISTORICAL CHOLECYSTECTOMY Medical History Medical History Date Comments HTN (hypertension) DX:HTN (hyper tension) Hyperlipidemia DX:Hyperlipidemi a Varicose veins with pain DX:Vari cose veins with pain Asthma DX:Asthma COPD (chronic obstructive pu lmonary disease) ([facility] V24, [facility] V28) DX:COPD (chronic o bstructive pulmonary disease) ([facility]) GERD (gastroesophageal reflux disease) DX:GERD (gastroesophageal [...] Last Done Comments Breast Cancer Screening 1960 Colorectal Cancer Screening: Colonoscopy 1960 DTaP,Tdap,and Td Vaccines (1 - Tdap) 1979 Pneumococcal Vaccine: 50+ Years (1 of 2 - PCV) 1979 RSV Immunization Adult Patients (1 - Risk 50-74 years 1-dose series) 2010 Zoster Vaccines (1 of 2) 2010 Depression Screening 05/31/2024 Cholesterol Screening (Lipid Panel) 07/24/2024 Hepatitis C Screening 07/24/2024 Hypertension/CHF/CAD Annual BMP Blood Test 07/24/2024 Osteoporosis Screening (Bone Density Screening) 07/24/2024 Social Influencers of Health Screening 07/24/2024 COVID-19 Vaccine (2024-2 6 season) 2025 Influenza Vaccine (#1) 2025 Falls Risk Assessment 2025 Cervical Cancer Screening: HPV 05/03/2029 1 [...] Recently Relevant to Health Maintenance Results * HPV genotype (05/03/2024 12:00 AM EST) HPV Type 16 Negative Negative LAB MICROBIOLOGY METHOD 05/16/2024 1:18 PM EST [facility] HPV Type 18/45 Negative Negative LAB MICROBIOLOGY METHOD 05/16/2024 1:18 PM EST [facility] HPV Type 16,18, and others Valid LAB MICROBIOLOGY METHOD 05/16/2024 1:18 PM EST [facility] Brushing/Spatula Cervix uteri structure / Unknown 05/03/2024 05/11/2024 8:56 AM EST us Kari Huffman MD LAB MOLECULAR DIAGNOSTICS ORD ERABLES Final Result [facility] [address] [place] [address], from Last 3 Months or Most Recently Relevant to Health Maintenance Insurance MEDICAID - [place] Care Teams Needle Setter Relationship Specialty Start Date End Date Kari Huffman MD [phone] PCP - General Internal Medicine 04/06/18
== END 2025-05-03 09:04 | disposition home or self-care (01) ==
PROVIDERS: PCP Internal Medicine; Visit Provider Orthopaedic Surgery
DX: M54.50 Low back pain, unspecified (principal); M79.604 Pain in right leg; M17.11 Unilateral primary osteoarthritis, right knee
CPT/HCPCS: 20610; 99213

== ENCOUNTER → 2025-05-03 08:36 | Outpatient (BNVA) | payer OTHER, SELFPAY | PROVIDERS: PCP Internal Medicine; Visit Provider Orthopaedic Surgery | DX: M17.11 Unilateral primary osteoarthritis, right knee (principal); M54.50 Low back pain, unspecified; M79.604 Pain in right leg | CPT/HCPCS: 20610; 99212; J1010; J2003 ==